=== PATIENT | male | born 1955 | race African-American/Black ===

== ENCOUNTER 2021-04-29 04:45 | Inpatient (IN) | payer MEDICARE ==
[~2021-04-29] VITALS: Ht 172.7 cm; Wt 105.0 kg
[~2021-04-29 04:45] MED LIST: ALBU8HFA INH; ATOR40TA59 PO; GABA600T7 PO; HYDR-2145 PO; INSU100C4 SQ; INSU100I13 SQ; LOSA-73 PO; MULT-245 PO
[2021-04-29] MEDS ORDERED: PROPOFOL 100 ML IV ONE ×2 (04:51→08:30)
[2021-04-29] MEDS ORDERED: FUROSEMIDE 40 MG/4 ML VIAL. ONE (04:53)
[2021-04-29] MEDS ORDERED: NITROGLYCERIN SUBLINGUAL 0.4 MG BOTTLE OF 25. SL ONE (04:57)
[2021-04-29] MEDS ORDERED: niCARdipine 50 MG in IV NORMAL SALINE 250ML 250 ML IV PRN (05:00)
--- NOTE | 2021-04-29 05:12 | EKG ---
[facility] [address] [place] [address] Test Date: 2021-04-29 Test Time: 04:54:01 Pat Name: BIA ORTIZ Department: Room: Gender: M Doctor Of Naturopathic Medicine: : 1955 Requested By: DIANA VILLASENOR Order Number: [id number] Reading MD: Geovanni Olivas Measurements Intervals Schneider Rate: 89 P: 50 [place]: 154 QRS: 52 QRSD: 94 T: 64 QT: 378 QTc: 461 Interpretive Statements SINUS RHYTHM NORMAL ECG RI6.01 Compared to ECG 02/03/2021 23:33:04 No significant changes Electronically Signed On 04-30-2021 13:12:57 CDT by Geovanni Olivas
[2021-04-29 05:13] LABS: BASO % 1 % (0-3); EOS # 0.2 x10^3/uL (0.0-0.7); EOS % 3 % (0-3); HEMATOCRIT 41.7 % (39.0-53.0); HEMOGLOBIN 13.7 g/dL (13.0-17.5); LYMPH # 1.8 x10^3/uL (1.0-4.8); LYMPH % 24 % (24-48); MEAN CORPUSCULAR HEMOGLOBIN 30 pg (25-35); MEAN CORPUSCULAR HGB CONC 33 g/dL (31-37); MEAN CORPUSCULAR VOLUME 90 fL (79-100); MONO % 13 % (0-9); NEUT # 4.6 x10^3/uL (1.8-7.7); NEUT % 60 % (31-73); PLATELET COUNT 353 x10^3/uL (140-400); RED BLOOD COUNT 4.63 x10^6/uL (4.30-5.70); RED CELL DISTRIBUTION WIDTH 13.7 % (11.5-14.5); WHITE BLOOD COUNT 7.6 x10^3/uL (4.0-11.0)
[2021-04-29] MEDS ORDERED: NITROGLYCERIN SUBLINGUAL 0.4 MG BOTTLE OF 25. SL PRN (05:15)
[2021-04-29] MEDS: MIDAZOLAM 100mg/100ml NS BAG 100 ML IV PRN ×2 (05:17→23:16)
[2021-04-29 05:26] LABS: CALCIUM 8.4 mg/dL (8.5-10.1); CREATININE 1.4 mg/dL (0.7-1.3); GFR 61.5
[2021-04-29] MEDS ORDERED: FUROSEMIDE 40 MG/4 ML VIAL. IVP ONE ×3 (05:30→13:00)
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
[2021-04-29 05:40] LABS: ALBUMIN 2.9 g/dL (3.4-5.0); ALBUMIN/GLOBULIN RATIO 0.7 (1.0-1.7); TOTAL BILIRUBIN 0.2 mg/dL (0.2-1.0)
[2021-04-29] MEDS ORDERED: ONDANSETRON PF 4 MG/2 ML VIAL. IVP PRN (05:45)
[2021-04-29 06:04] LABS: BILIRUBIN,URINE NEGATIVE (NEG); CLARITY,URINE CLEAR; COLOR,URINE YELLOW; NITRITE,URINE NEGATIVE (NEG); PROTEIN,URINE 100 mg/dL (NEG-TRACE)
[2021-04-29 06:12] LABS: BARBITURATES NEG (NEG); BENZODIAZEPINES NEG (NEG); CANNABINOIDS NEG (NEG); COCAINE NEG (NEG); METHADONE NEG (NEG); OPIATES NEG (NEG); PHENCYCLIDINE NEG (NEG)
[2021-04-29 06:13] LABS: AMPHETAMINE/METHAMPHETAMINE NEG (NEG)
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
[2021-04-29] MEDS ORDERED: PROPOFOL 10 MG/ML (20ML) VIAL. IV ONE (06:30)
[2021-04-29] MEDS ORDERED: PROPOFOL 10 MG/ML (20ML) VIAL. IV PRN (06:30)
[2021-04-29 06:34] LABS: HYALINE CASTS, URINE MODERATE /HPF
[2021-04-29 06:35] LABS: BACTERIA,URINE FEW /HPF (0-FEW)
--- NOTE | 2021-04-29 06:43 | RAD ---
Exam: Chest and abdominal radiographs Indication: Reason: tube placement / Spl. Instructions: / History: . Comparison: 02/03/2021 Findings: Chest: The endotracheal tube terminates 4.8 cm above the rl. The gastric tube tip and side port t erminates in the gastric body. The heart is enlarged with pulmonary vascular congestion. There is inc reased interstitial and alveolar airspace opacities slightly more advanced in the right middle/lower lobes. No sizable pleural effusion. No pneumothorax. No acute osseous process. ABDOMEN: There is mild gaseous distention of the stomach with relative positive gas throughout the vi sualized abdomen. No evidence of bowel obstruction. Impression: 1. Endotracheal and gastric tubes in stable position. 2. Pulmonary findings suggestive of moderate to severe interstitial alveolar pulmonary edema. Superim posed infectious process cannot be excluded. Electronically signed by: Dariusz Fry DO (04/29/2021 6:41 AM) [facility]
[2021-04-29] MEDS ORDERED: ALBUTEROL SULFATE 2.5 MG/3 ML NEBU. NEB PRN (06:45)
[2021-04-29] MEDS ORDERED: DEXTROSE 50% 25 GM / 50ML DISP.SYRIN. IV PRN ×2 (06:45→11:00)
[2021-04-29] MEDS ORDERED: SUCCINYLCHOLINE 200 MG/10 ML VIAL. ONE (07:01)
[2021-04-29] MEDS ORDERED: MIDAZOLAM HCL/PF 5 MG/5 ML VIAL. ONE (07:01)
[2021-04-29] MEDS ORDERED: KETAMINE HCL 500 MG/10 ML VIAL. ONE (07:02)
[2021-04-29 07:10] LABS: BASE EXCESS ABG -3 mmol/L (-3-3); HCO3 ABG 27 mmol/L (21-28); PO2 ABG 423 mmHg (65-108); SAT O2 ABG 99 % (92-99)
[2021-04-29 07:12] LABS: PCO2 ABG 76 mmHg (35-46)
[2021-04-29 07:13] LABS: FIO2 ABG 100
[2021-04-29 07:50] LABS: BASE EXCESS COOX 1 mmol/L (-3-3); HCO3 COOX 26 mmol/L (21-28); METHEMOGLOBIN 0.5 % (0.0-1.9); OXYHEMOGLOBIN 95.4 %; PCO2 COOX 44 mmHg (35-46); PO2 COOX 86 mmHg (65-108); SAT O2 COOX 96 % (92-99)
[2021-04-29] MEDS ORDERED: INSULIN LISPRO 300 UNITS/3 ML VIAL. SQ SCH ×2 (08:00)
[2021-04-29] MEDS: LOSARTAN POTASSIUM 25 MG TABLET. PO SCH (09:00)
--- NOTE | 2021-04-29 10:49 | PDOC2 ---
COOPER MILLARD PRINCIPAL INVESTIGATOR 04/29/21 1049: CARDIAC CONSULT DATE OF CONSULT Date of Consult DATE: 04/29/21 TIME: 10:41 REASON FOR CONSULT Reason for Consult: CHF Exacerbation REFERRING PHYSICIAN Referring Physician: Dr. Carvalho SOURCE Source: Chart review HISTORY OF PRESENT ILLNESS HISTORY OF PRESENT ILLNESS This is a 66 yo male who presented from [facility] secondary to shortness of breath. Required intubation upon arrival to the ED secondary to respiratory distress. CXR noted with pulmonary edema, which prompted this consult. Also noted with hypertensive emergency with systolic blood pressure > 220. Blood pressure presently controlled. PAST MEDICAL HISTORY Cardiovascular: CHF, HTN, Hyperlipidemia Psych: Addictions Endocrine: Diabetes PAST SURGICAL HISTORY Past Surgical History: Other (unknown ) FAMILY HISTORY Family History: Family History Unknown SOCIAL HISTORY Drugs: Cocaine (h/o use. recently discharged from rehab) Lives: Homeless (fdc ) CURRENT MEDICATIONS CURRENT MEDICATIONS Current Medications Medications (Trade) Dose Ordered Sig/Rhys Route PRN Reason Start Time Stop Time Status Last Admin Dose Admin Midazolam HCl 100 ml @ 1 mls/hr CONT PRN IV SEE I/O RECORD 04/29/21 05:00 04/29/21 05:17 Furosemide (Lasix) 40 mg 1X ONCE IVP 04/29/21 05:30 04/29/21 05:31 DC 04/29/21 04:56 Nitroglycerin (Nitrostat) 0.4 mg PRN Q5MIN PRN SL CHEST PAIN 04/29/21 05:15 04/29/21 04:58 Propofol (Diprivan) 100 mg CONT PRN PRN IV SEDATION 04/29/21 06:30 04/29/21 05:15 Fentanyl Citrate 30 ml @ 0 mls/hr CONT PRN PRN IV SEDATION/PAIN 04/29/21 06:30 04/29/21 06:45 ALLERGIES ALLERGIES: Coded Allergies: No Known Drug Allergies (Unverified , 02/04/21) ROS Review of System unobtainable PHYSICAL EXAM General: Other (sedated) HEENT: Atraumatic, Mucous membr. moist/pink Lungs: Other (diminished, MV) Heart: Regular rate Abdomen: Other (obese) Extremities: Other (trace bilateral LE edema ) Skin: No significant lesion Neuro: Other (sedated) Psych/Mental Status: Other (unable to assess) MUSCULOSKELETAL: Osteoarthritic changes both hands VITALS/I&O VITALS/I&O: Vital Signs Date Time Temp Pulse Resp B/P (MAP) Pulse Ox O2 Delivery O2 Flow Rate FiO2 04/29/21 10:00 64 26 129/65 (86) 100 Ventilator 04/29/21 04:45 96.6 96.6 LABS Lab: Laboratory Tests Test 04/29/21 04:58 04/29/21 05:05 04/29/21 05:26 04/29/21 05:50 White Blood Count 7.6 x10^3/uL (4.0-11.0) Red Blood Count 4.63 x10^6/uL (4.30-5.70) Hemoglobin 13.7 g/dL (13.0-17.5) Hematocrit 41.7 % (39.0-53.0) Mean Corpuscular Volume 90 fL (79-100) Mean Corpuscular Hemoglobin 30 pg (25-35) Mean Corpuscular Hemoglobin Concent 33 g/dL (31-37) Red Cell Distribution Width 13.7 % (11.5-14.5) Platelet Count 353 x10^3/uL (140-400) Neutrophils (%) (Auto) 60 % (31-73) Lymphocytes (%) (Auto) 24 % (24-48) Monocytes (%) (Auto) 13 % (0-9) H Eosinophils (%) (Auto) 3 % (0-3) Basophils (%) (Auto) 1 % (0-3) Neutrophils # (Auto) 4.6 x10^3/uL (1.8-7.7) Lymphocytes # (Auto) 1.8 x10^3/uL (1.0-4.8) Monocytes # (Auto) 1.0 x10^3/uL (0.0-1.1) Eosinophils # (Auto) 0.2 x10^3/uL (0.0-0.7) Basophils # (Auto) 0.0 x10^3/uL (0.0-0.2) Sodium Level 140 mmol/L (136-145) Potassium Level 5.0 mmol/L (3.5-5.1) Chloride Level 105 mmol/L (98-107) Carbon Dioxide Level 30 mmol/L (21-32) Anion Gap 5 (6-14) L Blood Urea Nitrogen 22 mg/dL (8-26) Creatinine 1.4 mg/dL (0.7-1.3) H Estimated GFR (Cockcroft-Gault) 61.5 BUN/Creatinine Ratio 16 (6-20) Glucose Level 333 mg/dL (70-99) H Lactic Acid Level 1.6 mmol/L (0.4-2.0) Calcium Level 8.4 mg/dL (8.5-10.1) L Total Bilirubin 0.2 mg/dL (0.2-1.0) Aspartate Amino Transferase (AST) 184 U/L (15-37) H Alanine Aminotransferase (ALT) 185 U/L (16-63) H Alkaline Phosphatase 153 U/L (46-116) H Troponin I Quantitative < 0.017 ng/mL (0.000-0.055) FV-Oww-X-Type Natriuretic Peptide 1590 pg/mL (0-124) H Total Protein 7.0 g/dL (6.4-8.2) Albumin 2.9 g/dL (3.4-5.0) L Albumin/Globulin Ratio 0.7 (1.0-1.7) L O2 Saturation 96 % (92-99) Arterial Blood pH 7.39 (7.35-7.45) Arterial Blood pCO2 at Patient Temp 44 mmHg (35-46) Arterial Blood pO2 at Patient Temp 86 mmHg (65-108) Arterial Blood HCO3 26 mmol/L (21-28) Arterial Blood Base Excess 1 mmol/L (-3-3) Oxyhemoglobin 95.4 % Methemoglobin 0.5 % (0.0-1.9) Carbon Monoxide, Quantitative 0.3 % (0.0-1.9) FiO2 40/vent SARS-CoV-2 Antigen (Rapid) Negative (NEGATIVE) Urine Collection Type U cath Urine Color Yellow Urine Clarity Clear Urine pH 6.0 (<5.0-8.0) Urine Specific [place] 1.015 (1.000-1.030) Urine Protein 100 mg/dL (NEG-TRACE) Urine Glucose (UA) 250 mg/dL (NEG) Urine Ketones (Stick) Negative mg/dL (NEG) Urine Blood Trace (NEG) Urine Nitrite Negative (NEG) Urine Bilirubin Negative (NEG) Urine Urobilinogen Dipstick 1.0 mg/dL (0.2 mg/dL) Urine Leukocyte Esterase Negative (NEG) Urine RBC 1-2 /HPF (0-2) Urine WBC 1-4 /HPF (0-4) Urine Squamous Epithelial Cells Few /LPF Urine Transitional Epithelial Cells Occ /LPF Urine Bacteria Few /HPF (0-FEW) Urine Hyaline Casts Moderate /HPF Urine Opiates Screen Neg (NEG) Urine Methadone Screen Neg (NEG) Urine Barbiturates Neg (NEG) Urine Phencyclidine Screen Neg (NEG) Urine Amphetamine/Methamphetamine Neg (NEG) Urine Benzodiazepines Screen Neg (NEG) Urine Cocaine Screen Neg (NEG) Urine Cannabinoids Screen Neg (NEG) Urine Ethyl Alcohol Neg (NEG) Test 04/29/21 06:18 04/29/21 08:40 04/29/21 10:26 O2 Saturation 99 % (92-99) Arterial Blood pH 7.17 (7.35-7.45) *L Arterial Blood pCO2 at Patient Temp 76 mmHg (35-46) *H Arterial Blood pO2 at Patient Temp 423 mmHg (65-108) H Arterial Blood HCO3 27 mmol/L (21-28) Arterial Blood Base Excess -3 mmol/L (-3-3) FiO2 100 Troponin I Quantitative < 0.017 ng/mL (0.000-0.055) Glucose (Fingerstick) 257 mg/dL (70-99) H Laboratory Tests 04/29/21 04:58 Laboratory Tests 04/29/21 04:58 ASSESSMENT/PLAN ASSESSMENT/PLAN 1. Acute on chronic respiratory failure; s/p intubation 2. Acute on chronic probable diastolic CHF in setting of hypertensive urgency. s/p IV diuresis 3. Hypertensive urgency; now controlled 4. Hyperlipidemia 5. Diabetes, II 6. MICHAEL 7. Elevated LFTs 8. H/o substance abuse; UDS negative 9. PUI; rapid negative Recommendations Diuresis with monitoring of renal function Echo to assess LV systolic function if PCR negative Ongoing lung optimization Supportive care Consider outpatient ischemic evaluation WELLINGTON ASHRAF MD 04/29/21 8407: CARDIAC CONSULT ASSESSMENT/PLAN ASSESSMENT/PLAN Pt. seen and examined. Agree with above GAS DISPATCHER Note. Supportive care. COOPER MILLARD APRN Apr 29, 2021 10:49 WELLINGTON ASHRAF MD Apr 29, 2021 18:47
[2021-04-29] MEDS: INSULIN LISPRO 300 UNITS/3 ML VIAL. SQ SCH ×2 (11:49→17:00)
[2021-04-29] MEDS: hydroCHLOROthiazide 25 MG TABLET PO SCH ×2 (12:00→16:00)
--- NOTE | 2021-04-29 13:04 | CONS ---
DATE OF CONSULTATION: 04/29/2021 PULMONARY CONSULTATION ATTENDING PHYSICIAN: Bryan Naik MD REASON FOR CONSULTATION: Respiratory failure. HISTORY OF PRESENT ILLNESS: The patient is a 66-year-old male with a BMI of 39.8. The patient has history of CHF and hypertension. He presented from [facility] due to increased shortness of breath. He required intubation for respiratory distress in the Emergency Room. The patient underwent chest x-ray, which was reviewed by me and was consistent with pulmonary edema. The patient was noted to be in hypertensive emergency with systolic blood pressure of more than 220. His current blood pressure is improved. His oxygen requirement is down to 40%. His initial ABG showed a pH of 7.17 with a pCO2 of 76 and a pO2 of 423 post-intubation. His COVID is negative. He received Lasix in the ER. I saw the patient in the Emergency Room. PAST MEDICAL HISTORY: Significant for CHF, unknown EF; hypertension, hyperlipidemia. The patient has addictions and diabetes. PAST SURGICAL HISTORY: Unknown. ALLERGIES: None. MEDICATIONS: Reviewed as listed in the MRAD. REVIEW OF SYSTEMS: Unable to obtain from the patient as he is on the ventilator. PHYSICAL EXAMINATION: VITAL SIGNS: Reviewed. Blood pressure stable, systolic 129. Pulse ox is 100%. NECK: Supple. LUNGS: Clear breath sounds. CARDIOVASCULAR: With a regular rate. ABDOMEN: Soft, obese. EXTREMITIES: With trace pitting edema. LABORATORY DATA: Reviewed. Troponin less than 0.017. Urine drug screen negative. COVID negative. BUN and creatinine of 22 and 1.4. AST, ALT elevated. Normal bilirubin. White cell count 7.6. IMPRESSION: 1. Acute hypercapnic respiratory failure secondary to acute flash pulmonary edema from hypertensive urgency. 2. Hypertensive urgency triggering diastolic congestive heart failure. 3. Abnormal chest x-ray consistent with congestive heart failure. 4. COVID-19 negative. 5. History of addictions, but urine drug screen negative. 6. Abnormal AST and ALT related to hypoperfusion. RECOMMENDATIONS: 1. The patient's blood pressure is stable. Continue to monitor closely. 2. Continue assist control mode. 3. We will follow up ABGs and likely pursue a CPAP trial in the next 24 hours. 4. Diuresis. 5. Follow up chest x-ray. 6. DVT prophylaxis and stress ulcer prophylaxis. 7. Enteral nutrition. 8. Discussed with RN in the ER. We will follow along with you. Chart reviewed, imaging studies reviewed. Critical care time 37 minutes. NISH/JEWELL DR: Sandip TID: [id number]
[2021-04-29 13:20] LABS: BASE EXCESS ABG 4 mmol/L (-3-3); HCO3 ABG 27 mmol/L (21-28); PCO2 ABG 33 mmHg (35-46); PO2 ABG 72 mmHg (65-108); SAT O2 ABG 95 % (92-99)
[2021-04-29 13:22] LABS: FIO2 ABG 40/VENT
--- NOTE | 2021-04-29 17:45 | CARD ---
MR#: [id number] Date of Study: 04/29/2021 Ordering Physician: BRYAN MCCLOUD, Referring Physician: BRYAN MCCLOUD, Tech: APPROVED REPORT EXAM: Two-dimensional and M-mode echocardiogram with Doppler and color Doppler. INDICATION Dyspnea LEFT VENTRICLE The left ventricle is normal size. There is mild concentric left ventricular hypertrophy. The left ve ntricular systolic function is normal and the ejection fraction is within normal range. EF 55% The ba travon to mid inferior wall is hypokinetic. The left ventricular diastolic function and filling is alem l for age. No left ventricle thrombus noted on this study. There is no ventricular septal defect visu alized. There is no left ventricular aneurysm. There is no mass noted in the left ventricle. RIGHT VENTRICLE The right ventricle is normal size. There is normal right ventricular wall thickness. The right ventr icular systolic function is normal. ATRIA The left atrium is mildly dilated. The right atrium size is normal. The interatrial septum is intact with no evidence for an atrial septal defect or patent foramen ovale as noted on 2-D or Doppler imagi ng. AORTIC VALVE The aortic valve is calcified but opens well. Doppler and Color Flow revealed mild to moderate eccent [place] aortic regurgitation. There is no significant aortic valvular stenosis. There is no aortic valvul ar vegetation. MITRAL VALVE The mitral valve is normal in structure and function. There is no evidence of mitral valve prolapse. There is no mitral valve stenosis. Doppler and Color-flow revealed trace to mild mitral regurgitation . TRICUSPID VALVE The tricuspid valve is normal in structure and function. Doppler and Color Flow revealed trace to mil d tricuspid regurgitation. The PA pressure was estimated at 37 mmHg. There is no tricuspid valve prol apse or vegetation. There is no tricuspid valve stenosis. PULMONIC VALVE Doppler and Color Flow revealed no pulmonic valvular regurgitation. There is no pulmonic valvular cyrus nosis. GREAT VESSELS The aortic root is normal in size. The ascending aorta is normal in size. The IVC is midly dilated wi th blunted inspiratory response. PERICARDIAL EFFUSION There is no pleural effusion. There is no evidence of significant pericardial effusion. Critical Notification Critical Value: No <Conclusion> The left ventricular systolic function is normal and the ejection fraction is within normal range. EF 55% The basal to mid inferior wall is hypokinetic. Doppler and Color Flow revealed mild to moderate eccentric aortic regurgitation. Signed by : Braulio Webb, Electronically Approved : 04/29/2021 17:45:19
[2021-04-29] MEDS: PROPOFOL 100 ML IV PRN (20:07)
[2021-04-29] MEDS: ATORVASTATIN CALCIUM 40 MG TABLET. PO SCH (21:00)
[2021-04-29] MEDS: INSULIN GLARGINE SYRINGE. SQ SCH (21:00)
[2021-04-29] MEDS: FAMOTIDINE 20 MG/2 ML VIAL IVP SCH (22:04)
[2021-04-29] MEDS: ENOXAPARIN 40 MG/0.4 ML SYRINGE. SQ SCH (22:05)
[2021-04-30] VITALS (20 sets, daily range): BP systolic 100–171; BP diastolic 50–83
[2021-04-30] MEDS: PROPOFOL 100 ML IV PRN ×2 (00:01→09:41)
[2021-04-30 01:11] LABS: HEMOGLOBIN A1C 10.1 % (4.8-5.6)
--- NOTE | 2021-04-30 06:04 | NUR ---
Nursing Note: Pt to room 109 after ED HOLD. Intubated, sedated on propofol, fentanyl and versed. issa to dd with cloudy urine. History obtained from previous admission.
--- NOTE | 2021-04-30 07:40 | PDOC ---
[employer] PROGRESS NOTE Date of Service DOS: DATE: 04/30/21 TIME: 07:27 Chief Complaint Chief Complaint Acute respiratory failure with hypoxia Acute CHF Flash pulmonary edema Hypertensive emergency MICHAEL due to vasomotor nephropathy Transaminitis DM2 with hyperglycemia Moderate malnutrition COVID-19 PUI Plan: Patient admitted to ICU on Cardene drip Consultation placed to cardiology and pulmonology We will continue to diurese patient with Lasix daily; monitor daily I's & O's. Echocardiogram has been ordered pending COVID-19 status. We will resume what home blood pressure medications we can at this time and wean off Cardene drip as tolerated Basal insulin COVID-19 pending FEN - NPO PPX - Lovenox FULL CODE Dispo - inpatient for above Unable to name surrogate decision-maker at this time History of Present Illness History of Present Illness Patient 66-year-old male past medical history DM2, HTN, presents to the ED from [facility] with complaints of shortness of breath. Much history is obtained through chart review due to clinical condition. Upon arrival by EMS she was saturating 94% on room air. He was diaphoretic and tachypneic, and subsequently placed on BiPAP. Labs on admission showed creatinine 1.4, CBG 333, AST 184, ALT 185, alk phos 153, BNP 1190, albumin 2.9. Blood pressure in the ED noted to be significantly elevated at 242/113 mmHg. He received Lasix and was placed on Cardene drip due to hypertensive emergency. Decision was made in ED to intubate patient due to worsening respiratory failure. Will be admitted to ICU for further medical management. 04/30/2021: Low-grade fever overnight, T-max 100.1 F. On vent with FiO2 40%, PEEP 5. Will follow cardiology recommendations. Continue diuresis with close monitoring of kidney function. 1940 mL urine output overnight. Echocardiogram showed normal left ventricular systolic function with a EF 55%; mild inferior wall hypokinesia, recommended outpatient ischemic evaluation. Blood pressure stable. Ventilator management per pulmonology; likely pursue CPAP trial the nex t 24 hours. Critical care time 30 minutes spent reviewing charts, reviewing imaging, reviewing labs, and discussion with RN. Vitals/I&O Vitals/I&O: Vital Signs Date Time Temp Pulse Resp B/P (MAP) Pulse Ox O2 Delivery O2 Flow Rate FiO2 04/30/21 06:42 96 40.0 04/30/21 06:00 74 20 108/53 (71) Ventilator 04/30/21 05:15 100.1 100.1 I & O 04/29/21 04/29/21 04/30/21 15:00 23:00 07:00 Output Total 665 ml 900 ml 775 ml Balance -665 ml -900 ml -775 ml Physical Exam General: Other (Intubated and sedated) Heart: Regular rate Lungs: Other (Intubated on ventilator) Abdomen: Other (obese) Extremities: No cyanosis, Other (trace bilateral LE edema ) Skin: No significant lesion Labs Labs: Laboratory Tests Test 04/29/21 08:40 04/29/21 10:26 04/29/21 11:15 04/29/21 13:00 Troponin I Quantitative < 0.017 ng/mL (0.000-0.055) < 0.017 ng/mL (0.000-0.055) Glucose (Fingerstick) 257 mg/dL (70-99) O2 Saturation 95 % (92-99) Arterial Blood pH 7.53 (7.35-7.45) Arterial Blood pCO2 at Patient Temp 33 mmHg (35-46) Arterial Blood pO2 at Patient Temp 72 mmHg (65-108) Arterial Blood HCO3 27 mmol/L (21-28) Arterial Blood Base Excess 4 mmol/L (-3-3) FiO2 40/vent Test 04/29/21 18:51 04/29/21 19:33 04/30/21 01:07 Glucose (Fingerstick) 149 mg/dL (70-99) 143 mg/dL (70-99) 129 mg/dL (70-99) Assessment and Plan Assessmemt and Plan Problems Medical Problems: (1) Flash pulmonary edema Status: Acute (2) Hypertensive emergency Status: Acute (3) Respiratory failure Status: Acute Comment Review of Relevant I have reviewed the following items fabricio (where applicable) has been applied. Medications: Current Medications Medications (Trade) Dose Ordered Sig/Rhys Route PRN Reason Start Time Stop Time Status Last Admin Dose Admin Insulin Human Lispro (HumaLOG) 0-7 UNITS TIDWMEALS SQ 04/29/21 12:00 04/29/21 11:49 Furosemide (Lasix) 40 mg 1X ONCE IVP 04/29/21 12:45 04/29/21 12:46 DC 04/29/21 12:48 Enoxaparin Sodium (Lovenox 40mg Syringe) 40 mg Q24H SQ 04/29/21 13:00 04/29/21 22:05 Furosemide (Lasix) 40 mg 1X ONCE IVP 04/29/21 13:00 04/29/21 13:01 DC 04/29/21 13:06 Propofol 100 ml @ 3.66 mls/hr CONT PRN IV PER PROTOCOL 04/29/21 18:45 04/30/21 00:01 Famotidine (Pepcid Vial) 20 mg QHS IVP 04/29/21 21:00 04/29/21 22:04 Justifications for Admission Other Justification BRYAN MCCLOUD MD Apr 30, 2021 07:40
[2021-04-30 08:15] LABS: BASE EXCESS ABG 1 mmol/L (-3-3); HCO3 ABG 25 mmol/L (21-28); PCO2 ABG 39 mmHg (35-46); PO2 ABG 77 mmHg (65-108); SAT O2 ABG 95 % (92-99)
[2021-04-30 08:28] LABS: BASO # 0.1 x10^3/uL (0.0-0.2); BASO % 1 % (0-3); EOS % 0 % (0-3); HEMATOCRIT 36.1 % (39.0-53.0); HEMOGLOBIN 11.8 g/dL (13.0-17.5); LYMPH # 1.1 x10^3/uL (1.0-4.8); LYMPH % 11 % (24-48); MEAN CORPUSCULAR HEMOGLOBIN 30 pg (25-35); MEAN CORPUSCULAR HGB CONC 33 g/dL (31-37); MEAN CORPUSCULAR VOLUME 90 fL (79-100); MONO # 1.2 x10^3/uL (0.0-1.1); MONO % 12 % (0-9); NEUT # 7.5 x10^3/uL (1.8-7.7); NEUT % 76 % (31-73); PLATELET COUNT 303 x10^3/uL (140-400); RED BLOOD COUNT 3.99 x10^6/uL (4.30-5.70); RED CELL DISTRIBUTION WIDTH 13.8 % (11.5-14.5); WHITE BLOOD COUNT 9.9 x10^3/uL (4.0-11.0)
--- NOTE | 2021-04-30 08:35 | RAD ---
EXAM: Chest, single view. HISTORY: Congestive heart failure. COMPARISON: 04/29/2021 FINDINGS: A frontal view of the chest is obtained. There has been interval increase in right lower lo be infiltrate and a small right pleural effusion. There has been interval decrease in interstitial in filtrate elsewhere throughout both lungs. There is a stable enlarged cardiac silhouette. There is an endotracheal tube within the mid trachea. There is a nasogastric tube within the stomach. IMPRESSION: 1. Increased right lower lobe infiltrate with small right pleural effusion. 2. Decreased infiltrate elsewhere within both lungs. 3. Stable cardiomegaly and support lines and tubes. Electronically signed by: Maya Fernandez MD (04/30/2021 8:33 AM) [id number]
[2021-04-30 08:56] LABS: CALCIUM 8.4 mg/dL (8.5-10.1); CREATININE 1.5 mg/dL (0.7-1.3); GFR 56.8; POTASSIUM 4.5 mmol/L (3.5-5.1)
[2021-04-30] MEDS ORDERED: FUROSEMIDE 20 MG/2 ML VIAL. IVP SCH (09:00)
[2021-04-30 09:02] LABS: FIO2 ABG 40%VENT
[2021-04-30] MEDS: FUROSEMIDE 40 MG/4 ML VIAL. IVP SCH (10:02)
[2021-04-30] MEDS: hydroCHLOROthiazide 25 MG TABLET PO SCH ×2 (10:03→16:00)
[2021-04-30] MEDS: LOSARTAN POTASSIUM 25 MG TABLET. PO SCH (10:07)
--- NOTE | 2021-04-30 11:00 | PDOC ---
PULMONARY PROGRESS NOTES DATE: 04/30/21 TIME: 10:58 Subjective Patient intubated and sedated. 40% FiO2 on assist control mode Vitals Vital Signs Date Time Temp Pulse Resp B/P (MAP) Pulse Ox O2 Delivery O2 Flow Rate FiO2 04/30/21 10:07 70 118/49 04/30/21 08:00 Mechanical Ventilator 04/30/21 07:58 100 04/30/21 07:15 20 04/30/21 06:42 40.0 04/30/21 05:15 100.1 100.1 Lungs: Clear Cardiovascular: S1 Abdomen: Soft Extremities: Other (1+ edema) Labs Laboratory Tests Test 04/29/21 04:58 04/29/21 05:05 04/29/21 05:26 04/29/21 05:50 White Blood Count 7.6 x10^3/uL (4.0-11.0) Red Blood Count 4.63 x10^6/uL (4.30-5.70) Hemoglobin 13.7 g/dL (13.0-17.5) Hematocrit 41.7 % (39.0-53.0) Mean Corpuscular Volume 90 fL (79-100) Mean Corpuscular Hemoglobin 30 pg (25-35) Mean Corpuscular Hemoglobin Concent 33 g/dL (31-37) Red Cell Distribution Width 13.7 % (11.5-14.5) Platelet Count 353 x10^3/uL (140-400) Neutrophils (%) (Auto) 60 % (31-73) Lymphocytes (%) (Auto) 24 % (24-48) Monocytes (%) (Auto) 13 % (0-9) Eosinophils (%) (Auto) 3 % (0-3) Basophils (%) (Auto) 1 % (0-3) Neutrophils # (Auto) 4.6 x10^3/uL (1.8-7.7) Lymphocytes # (Auto) 1.8 x10^3/uL (1.0-4.8) Monocytes # (Auto) 1.0 x10^3/uL (0.0-1.1) Eosinophils # (Auto) 0.2 x10^3/uL (0.0-0.7) Basophils # (Auto) 0.0 x10^3/uL (0.0-0.2) Sodium Level 140 mmol/L (136-145) Potassium Level 5.0 mmol/L (3.5-5.1) Chloride Level 105 mmol/L (98-107) Carbon Dioxide Level 30 mmol/L (21-32) Anion Gap 5 (6-14) Blood Urea Nitrogen 22 mg/dL (8-26) Creatinine 1.4 mg/dL (0.7-1.3) Estimated GFR (Cockcroft-Gault) 61.5 BUN/Creatinine Ratio 16 (6-20) Glucose Level 333 mg/dL (70-99) Hemoglobin A1c 10.1 % (4.8-5.6) Lactic Acid Level 1.6 mmol/L (0.4-2.0) Calcium Level 8.4 mg/dL (8.5-10.1) Total Bilirubin 0.2 mg/dL (0.2-1.0) Aspartate Amino Transf (AST/SGOT) 184 U/L (15-37) Alanine Aminotransferase (ALT/SGPT) 185 U/L (16-63) Alkaline Phosphatase 153 U/L (46-116) Troponin I Quantitative < 0.017 ng/mL (0.000-0.055) QX-Iol-Z-Type Natriuretic Peptide 1590 pg/mL (0-124) Total Protein 7.0 g/dL (6.4-8.2) Albumin 2.9 g/dL (3.4-5.0) Albumin/Globulin Ratio 0.7 (1.0-1.7) O2 Saturation 96 % (92-99) Arterial Blood pH 7.39 (7.35-7.45) Arterial Blood pCO2 at Patient Temp 44 mmHg (35-46) Arterial Blood pO2 at Patient Temp 86 mmHg (65-108) Arterial Blood HCO3 26 mmol/L (21-28) Arterial Blood Base Excess 1 mmol/L (-3-3) Oxyhemoglobin 95.4 % Methemoglobin 0.5 % (0.0-1.9) Carbon Monoxide, Quantitative 0.3 % (0.0-1.9) FiO2 40/vent SARS-CoV-2 RNA (EVANS) Negative (Negative) SARS-CoV-2 Antigen (Rapid) Negative (NEGATIVE) Urine Collection Type U cath Urine Color Yellow Urine Clarity Clear Urine pH 6.0 (<5.0-8.0) Urine Specific [place] 1.015 (1.000-1.030) Urine Protein 100 mg/dL (NEG-TRACE) Urine Glucose (UA) 250 mg/dL (NEG) Urine Ketones (Stick) Negative mg/dL (NEG) Urine Blood Trace (NEG) Urine Nitrite Negative (NEG) Urine Bilirubin Negative (NEG) Urine Urobilinogen Dipstick 1.0 mg/dL (0.2 mg/dL) Urine Leukocyte Esterase Negative (NEG) Urine RBC 1-2 /HPF (0-2) Urine WBC 1-4 /HPF (0-4) Urine Squamous Epithelial Cells Few /LPF Urine Transitional Epithelial Cells Occ /LPF Urine Bacteria Few /HPF (0-FEW) Urine Hyaline Casts Moderate /HPF Urine Opiates Screen Neg (NEG) Urine Methadone Screen Neg (NEG) Urine Barbiturates Neg (NEG) Urine Phencyclidine Screen Neg (NEG) Urine Amphetamine/Methamphetamine Neg (NEG) Urine Benzodiazepines Screen Neg (NEG) Urine Cocaine Screen Neg (NEG) Urine Cannabinoids Screen Neg (NEG) Urine Ethyl Alcohol Neg (NEG) Test 04/29/21 06:18 04/29/21 08:40 04/29/21 10:26 04/29/21 11:15 O2 Saturation 99 % (92-99) Arterial Blood pH 7.17 (7.35-7.45) Arterial Blood pCO2 at Patient Temp 76 mmHg (35-46) Arterial Blood pO2 at Patient Temp 423 mmHg (65-108) Arterial Blood HCO3 27 mmol/L (21-28) Arterial Blood Base Excess -3 mmol/L (-3-3) FiO2 100 Troponin I Quantitative < 0.017 ng/mL (0.000-0.055) < 0.017 ng/mL (0.000-0.055) Glucose (Fingerstick) 257 mg/dL (70-99) Test 04/29/21 13:00 04/29/21 18:51 04/29/21 19:33 04/30/21 01:07 O2 Saturation 95 % (92-99) Arterial Blood pH 7.53 (7.35-7.45) Arterial Blood pCO2 at Patient Temp 33 mmHg (35-46) Arterial Blood pO2 at Patient Temp 72 mmHg (65-108) Arterial Blood HCO3 27 mmol/L (21-28) Arterial Blood Base Excess 4 mmol/L (-3-3) FiO2 40/vent Glucose (Fingerstick) 149 mg/dL (70-99) 143 mg/dL (70-99) 129 mg/dL (70-99) Test 04/30/21 08:15 04/30/21 08:45 White Blood Count 9.9 x10^3/uL (4.0-11.0) Red Blood Count 3.99 x10^6/uL (4.30-5.70) Hemoglobin 11.8 g/dL (13.0-17.5) Hematocrit 36.1 % (39.0-53.0) Mean Corpuscular Volume 90 fL (79-100) Mean Corpuscular Hemoglobin 30 pg (25-35) Mean Corpuscular Hemoglobin Concent 33 g/dL (31-37) Red Cell Distribution Width 13.8 % (11.5-14.5) Platelet Count 303 x10^3/uL (140-400) Neutrophils (%) (Auto) 76 % (31-73) Lymphocytes (%) (Auto) 11 % (24-48) Monocytes (%) (Auto) 12 % (0-9) Eosinophils (%) (Auto) 0 % (0-3) Basophils (%) (Auto) 1 % (0-3) Neutrophils # (Auto) 7.5 x10^3/uL (1.8-7.7) Lymphocytes # (Auto) 1.1 x10^3/uL (1.0-4.8) Monocytes # (Auto) 1.2 x10^3/uL (0.0-1.1) Eosinophils # (Auto) 0.0 x10^3/uL (0.0-0.7) Basophils # (Auto) 0.1 x10^3/uL (0.0-0.2) Sodium Level 142 mmol/L (136-145) Potassium Level 4.5 mmol/L (3.5-5.1) Chloride Level 107 mmol/L (98-107) Carbon Dioxide Level 30 mmol/L (21-32) Anion Gap 5 (6-14) Blood Urea Nitrogen 29 mg/dL (8-26) Creatinine 1.5 mg/dL (0.7-1.3) Estimated GFR (Cockcroft-Gault) 56.8 Glucose Level 235 mg/dL (70-99) Calcium Level 8.4 mg/dL (8.5-10.1) O2 Saturation 95 % (92-99) Arterial Blood pH 7.42 (7.35-7.45) Arterial Blood pCO2 at Patient Temp 39 mmHg (35-46) Arterial Blood pO2 at Patient Temp 77 mmHg (65-108) Arterial Blood HCO3 25 mmol/L (21-28) Arterial Blood Base Excess 1 mmol/L (-3-3) FiO2 40%vent Laboratory Tests Test 04/29/21 11:15 04/29/21 13:00 04/29/21 18:51 04/29/21 19:33 Troponin I Quantitative < 0.017 ng/mL (0.000-0.055) O2 Saturation 95 % (92-99) Arterial Blood pH 7.53 (7.35-7.45) Arterial Blood pCO2 at Patient Temp 33 mmHg (35-46) Arterial Blood pO2 at Patient Temp 72 mmHg (65-108) Arterial Blood HCO3 27 mmol/L (21-28) Arterial Blood Base Excess 4 mmol/L (-3-3) FiO2 40/vent Glucose (Fingerstick) 149 mg/dL (70-99) 143 mg/dL (70-99) Test 04/30/21 01:07 04/30/21 08:15 04/30/21 08:45 Glucose (Fingerstick) 129 mg/dL (70-99) White Blood Count 9.9 x10^3/uL (4.0-11.0) Red Blood Count 3.99 x10^6/uL (4.30-5.70) Hemoglobin 11.8 g/dL (13.0-17.5) Hematocrit 36.1 % (39.0-53.0) Mean Corpuscular Volume 90 fL (79-100) Mean Corpuscular Hemoglobin 30 pg (25-35) Mean Corpuscular Hemoglobin Concent 33 g/dL (31-37) Red Cell Distribution Width 13.8 % (11.5-14.5) Platelet Count 303 x10^3/uL (140-400) Neutrophils (%) (Auto) 76 % (31-73) Lymphocytes (%) (Auto) 11 % (24-48) Monocytes (%) (Auto) 12 % (0-9) Eosinophils (%) (Auto) 0 % (0-3) Basophils (%) (Auto) 1 % (0-3) Neutrophils # (Auto) 7.5 x10^3/uL (1.8-7.7) Lymphocytes # (Auto) 1.1 x10^3/uL (1.0-4.8) Monocytes # (Auto) 1.2 x10^3/uL (0.0-1.1) Eosinophils # (Auto) 0.0 x10^3/uL (0.0-0.7) Basophils # (Auto) 0.1 x10^3/uL (0.0-0.2) Sodium Level 142 mmol/L (136-145) Potassium Level 4.5 mmol/L (3.5-5.1) Chloride Level 107 mmol/L (98-107) Carbon Dioxide Level 30 mmol/L (21-32) Anion Gap 5 (6-14) Blood Urea Nitrogen 29 mg/dL (8-26) Creatinine 1.5 mg/dL (0.7-1.3) Estimated GFR (Cockcroft-Gault) 56.8 Glucose Level 235 mg/dL (70-99) Calcium Level 8.4 mg/dL (8.5-10.1) O2 Saturation 95 % (92-99) Arterial Blood pH 7.42 (7.35-7.45) Arterial Blood pCO2 at Patient Temp 39 mmHg (35-46) Arterial Blood pO2 at Patient Temp 77 mmHg (65-108) Arterial Blood HCO3 25 mmol/L (21-28) Arterial Blood Base Excess 1 mmol/L (-3-3) FiO2 40%vent Medications Active Scripts Medications Dose Route/Sig Max Daily Dose Days Date Category Ventolin Hfa (Albuterol Sulfate) 8 Gm Hfa.aer.ad 1 Puff INH PRN Q4HRS PRN 30 02/04/21 Rx Multi Vitamin Daily (Multivitamin) 1 Each Tablet 1 Tab PO DAILY 30 02/04/21 Reported Gabapentin 600 Mg Tablet 300 Mg PO DAILY 02/04/21 Reported Lantus Solostar (Insulin Glargine,Hum.rec.anlog) 100 Unit/1 Ml Insuln.pen 40 Unit SQ QHS 02/04/21 Reported Novolog (Insulin Aspart) 100 Unit/1 Ml Cartridge 15 Unit SQ TIDAC 02/04/21 Reported Atorvastatin Calcium 40 Mg Tablet 80 Mg PO HS 02/04/21 Reported Losartan Potassium 50 Mg Tablet 25 Mg PO DAILY 02/04/21 Reported Hydrochlorothiazide Tablet (Hydrochlorothiazide) 25 Mg Tablet 12.5 Mg PO BID 02/04/21 Reported Comments Chest x-ray 04/30/2021 Mild improvement in CHF Impression . 1. Acute hypercapnic respiratory failure secondary to acute flash pulmonary edema from hypertensive urgency. 2. Hypertensive urgency triggering diastolic congestive heart failure. 3. Abnormal chest x-ray consistent with congestive heart failure. 4. COVID-19 negative. 5. History of addictions, but urine drug screen negative. 6. Abnormal AST and ALT related to hypoperfusion. Plan . 1. Oxygen status has improved. We will wean off sedation. 2. Continue assist control mode. Once awake, CPAP trial 3. Follow chest x-ray and ABGs as needed. 4. Diuresis. 5. Follow up chest x-ray. 6. DVT prophylaxis and stress ulcer prophylaxis. 7. Enteral nutrition. 8. Discussed with RN/RT MICHELLE DURAN MD Apr 30, 2021 11:00
--- NOTE | 2021-04-30 11:18 | PDOC ---
COOPER MILLARD MEDIA ASSOCIATE 04/30/21 1118: CARDIO Progress Notes Date and Time Date of Service 04/30/21 Time of Evaluation 1115 Subjective Subjective: Other (drowsy, s/p extubation ) Vitals Vitals Vital Signs Date Time Temp Pulse Resp B/P (MAP) Pulse Ox O2 Delivery O2 Flow Rate FiO2 04/30/21 11:00 76 26 170/66 (100) 100 Ventilator 04/30/21 08:00 98.3 98.3 04/30/21 06:42 40.0 Weight Weight [ ] Input and Output Intake and Output Intake and Output 04/30/21 07:00 Output Total 2340 ml Balance -2340 ml Output Urine Total 1940 ml Gastric Drainage Total 400 ml Laboratory Labs Laboratory Tests Test 04/29/21 13:00 04/29/21 18:51 04/29/21 19:33 04/30/21 01:07 O2 Saturation 95 % (92-99) Arterial Blood pH 7.53 (7.35-7.45) Arterial Blood pCO2 at Patient Temp 33 mmHg (35-46) Arterial Blood pO2 at Patient Temp 72 mmHg (65-108) Arterial Blood HCO3 27 mmol/L (21-28) Arterial Blood Base Excess 4 mmol/L (-3-3) FiO2 40/vent Glucose (Fingerstick) 149 mg/dL (70-99) 143 mg/dL (70-99) 129 mg/dL (70-99) Test 04/30/21 08:15 04/30/21 08:45 White Blood Count 9.9 x10^3/uL (4.0-11.0) Red Blood Count 3.99 x10^6/uL (4.30-5.70) Hemoglobin 11.8 g/dL (13.0-17.5) Hematocrit 36.1 % (39.0-53.0) Mean Corpuscular Volume 90 fL (79-100) Mean Corpuscular Hemoglobin 30 pg (25-35) Mean Corpuscular Hemoglobin Concent 33 g/dL (31-37) Red Cell Distribution Width 13.8 % (11.5-14.5) Platelet Count 303 x10^3/uL (140-400) Neutrophils (%) (Auto) 76 % (31-73) Lymphocytes (%) (Auto) 11 % (24-48) Monocytes (%) (Auto) 12 % (0-9) Eosinophils (%) (Auto) 0 % (0-3) Basophils (%) (Auto) 1 % (0-3) Neutrophils # (Auto) 7.5 x10^3/uL (1.8-7.7) Lymphocytes # (Auto) 1.1 x10^3/uL (1.0-4.8) Monocytes # (Auto) 1.2 x10^3/uL (0.0-1.1) Eosinophils # (Auto) 0.0 x10^3/uL (0.0-0.7) Basophils # (Auto) 0.1 x10^3/uL (0.0-0.2) Sodium Level 142 mmol/L (136-145) Potassium Level 4.5 mmol/L (3.5-5.1) Chloride Level 107 mmol/L (98-107) Carbon Dioxide Level 30 mmol/L (21-32) Anion Gap 5 (6-14) Blood Urea Nitrogen 29 mg/dL (8-26) Creatinine 1.5 mg/dL (0.7-1.3) Estimated GFR (Cockcroft-Gault) 56.8 Glucose Level 235 mg/dL (70-99) Calcium Level 8.4 mg/dL (8.5-10.1) O2 Saturation 95 % (92-99) Arterial Blood pH 7.42 (7.35-7.45) Arterial Blood pCO2 at Patient Temp 39 mmHg (35-46) Arterial Blood pO2 at Patient Temp 77 mmHg (65-108) Arterial Blood HCO3 25 mmol/L (21-28) Arterial Blood Base Excess 1 mmol/L (-3-3) FiO2 40%vent Physical Exam HEENT: Neck Supple W Full Motion Chest: Symmetric LUNGS: Other (diminished bases) Heart: RRR Abdomen: Soft N/T Extremities: Other (1+ bilateral LE edema ) Neurology: alert, other (drowsy) Assessment Assessment 1. Acute on chronic respiratory failure; s/p extubation this am 2. Acute on chronic diastolic CHF in setting of hypertensive urgency. s/p IV diuresis. Echo with preserved LV systolic function 3. Hypertensive urgency; now controlled 4. Hyperlipidemia; statin 5. Diabetes, II 6. MICHAEL, ? CKD 7. Elevated LFTs 8. H/o substance abuse; UDS negative 9. PUI; COVID negative Recommendations Diuresis with monitoring of renal function BP control; hydralazine IV PRN while NPO Ongoing lung optimization Supportive care Outpatient ischemic evaluation Supportive care Justicifation of Admission Dx: Justifications for Admission: Justification of Admission Dx: Yes CHF: Hemodynamic Instability WELLINGTON ASHRAF MD 05/01/21 1041: CARDIO Progress Notes Plan Plan Late entry for 04/30/21 Pt. seen and examined. Agree with above [employer] note. COOPER MILLARD APRN Apr 30, 2021 11:18 WELLINGTON ASHRAF MD May 01, 2021 10:41
--- NOTE | 2021-04-30 11:23 | NUR ---
SS following for discharge planning. SS reviewed pt chart and discussed with pt RN. Pt is from [facility], . COVID19 negative. Pt is currently on the vent at 40%. Pt on IV Lasix. No sedation. SS will continue to follow for discharge planning.
[2021-04-30 12:11] LABS: ALBUMIN 2.5 g/dL (3.4-5.0); DIRECT BILIRUBIN 0.1 mg/dL (0.0-0.2); TOTAL BILIRUBIN 0.2 mg/dL (0.2-1.0); TOTAL PROTEIN 5.9 g/dL (6.4-8.2)
--- NOTE | 2021-04-30 12:41 | NUR ---
Verbal order to extubate received from Dr. Berkowitz at 1225 after SBT. Patient extubated at 1235 to 3L NC.
[2021-04-30 12:47] LABS: BASE EXCESS ABG 5 mmol/L (-3-3); FIO2 ABG VENT/CPAP 10-5 40%; HCO3 ABG 30 mmol/L (21-28); PCO2 ABG 45 mmHg (35-46); PO2 ABG 73 mmHg (65-108); SAT O2 ABG 95 % (92-99)
[2021-04-30] MEDS: INSULIN LISPRO 300 UNITS/3 ML VIAL. SQ SCH ×2 (13:18→18:33)
[2021-04-30] MEDS: ENOXAPARIN 40 MG/0.4 ML SYRINGE. SQ SCH (13:22)
[2021-04-30] MEDS ORDERED: FUROSEMIDE 40 MG/4 ML VIAL. IVP ONE (16:45)
[2021-04-30] MEDS ORDERED: hydrALAZINE 20 MG/ML VIAL. IVP PRN (16:45)
[2021-04-30] MEDS: ATORVASTATIN CALCIUM 40 MG TABLET. PO SCH (21:00)
[2021-04-30] MEDS: FAMOTIDINE 20 MG/2 ML VIAL IVP SCH (21:04)
[2021-04-30] MEDS: INSULIN GLARGINE SYRINGE. SQ SCH (21:10)
[2021-05-01] VITALS (15 sets, daily range): BP systolic 121–179; BP diastolic 51–85
[2021-05-01 05:10] LABS: BASO % 0 % (0-3); EOS % 0 % (0-3); HEMATOCRIT 36.8 % (39.0-53.0); HEMOGLOBIN 12.2 g/dL (13.0-17.5); LYMPH # 1.3 x10^3/uL (1.0-4.8); LYMPH % 13 % (24-48); MEAN CORPUSCULAR HEMOGLOBIN 30 pg (25-35); MEAN CORPUSCULAR HGB CONC 33 g/dL (31-37); MEAN CORPUSCULAR VOLUME 89 fL (79-100); MONO # 1.5 x10^3/uL (0.0-1.1); MONO % 14 % (0-9); NEUT # 7.5 x10^3/uL (1.8-7.7); NEUT % 73 % (31-73); PLATELET COUNT 312 x10^3/uL (140-400); RED BLOOD COUNT 4.12 x10^6/uL (4.30-5.70); RED CELL DISTRIBUTION WIDTH 13.8 % (11.5-14.5); WHITE BLOOD COUNT 10.4 x10^3/uL (4.0-11.0)
[2021-05-01 05:45] LABS: CALCIUM 8.9 mg/dL (8.5-10.1); CREATININE 1.2 mg/dL (0.7-1.3); GFR 73.5; POTASSIUM 3.9 mmol/L (3.5-5.1)
[2021-05-01] MEDS: INSULIN LISPRO 300 UNITS/3 ML VIAL. SQ SCH ×5 (06:00→22:01)
--- NOTE | 2021-05-01 07:37 | PDOC ---
[employer] PROGRESS NOTE Date of Service DOS: DATE: 05/01/21 TIME: 07:20 Chief Complaint Chief Complaint Acute respiratory failure with hypoxia Acute CHF Flash pulmonary edema Hypertensive emergency MICHAEL due to vasomotor nephropathy Transaminitis DM2 with hyperglycemia Severe malnutrition COVID-19 PUI Plan: Patient admitted to ICU on Cardene drip Consultation placed to cardiology and pulmonology We will continue to diurese patient with Lasix daily; monitor daily I's & O's. Echocardiogram has been ordered pending COVID-19 status. We will resume what home blood pressure medications we can at this time and wean off Cardene drip as tolerated Basal insulin COVID-19 pending FEN - NPO PPX - Lovenox FULL CODE Dispo - inpatient for above Unable to name surrogate decision-maker at this time History of Present Illness History of Present Illness Patient 66-year-old male past medical history DM2, HTN, presents to the ED from [facility] with complaints of shortness of breath. Much history is obtained through chart review due to clinical condition. Upon arrival by EMS she was saturating 94% on room air. He was diaphoretic and tachypneic, and subsequently placed on BiPAP. Labs on admission showed creatinine 1.4, CBG 333, AST 184, ALT 185, alk phos 153, BNP 1190, albumin 2.9. Blood pressure in the ED noted to be significantly elevated at 242/113 mmHg. He received Lasix and was placed on Cardene drip due to hypertensive emergency. Decision was made in ED to intubate patient due to worsening respiratory failure. Will be admitted to ICU for further medical management. 04/30/2021: Low-grade fever overnight, T-max 100.1 F. On vent with FiO2 40%, PEEP 5. Will follow cardiology recommendations. Continue diuresis with close monitoring of kidney function. 1940 mL urine output overnight. Echocardiogram showed normal left ventricular systolic function with a EF 55%; mild inferior wall hypokinesia, recommended outpatient ischemic evaluation. Blood pressure stable. Ventilator management per pulmonology; likely pursue CPAP trial the next 24 hours. Critical care time 30 minutes spent reviewing charts, reviewing imaging, reviewing labs, and discussion with RN. 05/01/2021: Febrile overnight, T-max 100.6 F. Extubated yesterday, now breathing on 3 L nasal cannula. 2490 mL urine output overnight. At home he was breathing on 3-4 L nasal cannula at baseline. States he has been compliant with his home Lasix but did not feel that this medication was keeping fluid off of him. Discussed nonpharmacological ways of addressing his CHF; sodium and fluid restriction. States he is swallowing well. We will continue to follow cardiology recommendations; diuresis with monitoring of renal function and outpatient ischemic evaluation. Chest x-ray yesterday showed increased right lower lobe infiltrate. Will obtain CRP and procalcitonin to help rule out any pulmonary infection. Critical care time 30 minutes spent reviewing charts, r eviewing imaging, reviewing labs, and discussion with RN. Vitals/I&O Vitals/I&O: Vital Signs Date Time Temp Pulse Resp B/P (MAP) Pulse Ox O2 Delivery O2 Flow Rate FiO2 05/01/21 06:24 79 17 157/64 (95) 99 Nasal Cannula 3.0 04/30/21 23:00 98.7 98.7 I & O 04/30/21 04/30/21 05/01/21 15:00 23:00 07:00 Intake Total 360 ml 0 ml Output Total 800 ml 1690 ml Balance -800 ml -1330 ml 0 ml Physical Exam General: Alert, Oriented X3, Cooperative, mild distress, Other Heart: Regular rate Lungs: Crackles Abdomen: Other (obese) Extremities: No cyanosis, Other (trace bilateral LE edema ) Skin: No rashes, No significant lesion Labs Labs: Laboratory Tests Test 04/30/21 08:15 04/30/21 08:45 04/30/21 12:09 04/30/21 13:15 White Blood Count 9.9 x10^3/uL (4.0-11.0) Red Blood Count 3.99 x10^6/uL (4.30-5.70) Hemoglobin 11.8 g/dL (13.0-17.5) Hematocrit 36.1 % (39.0-53.0) Mean Corpuscular Volume 90 fL (79-100) Mean Corpuscular Hemoglobin 30 pg (25-35) Mean Corpuscular Hemoglobin Concent 33 g/dL (31-37) Red Cell Distribution Width 13.8 % (11.5-14.5) Platelet Count 303 x10^3/uL (140-400) Neutrophils (%) (Auto) 76 % (31-73) Lymphocytes (%) (Auto) 11 % (24-48) Monocytes (%) (Auto) 12 % (0-9) Eosinophils (%) (Auto) 0 % (0-3) Basophils (%) (Auto) 1 % (0-3) Neutrophils # (Auto) 7.5 x10^3/uL (1.8-7.7) Lymphocytes # (Auto) 1.1 x10^3/uL (1.0-4.8) Monocytes # (Auto) 1.2 x10^3/uL (0.0-1.1) Eosinophils # (Auto) 0.0 x10^3/uL (0.0-0.7) Basophils # (Auto) 0.1 x10^3/uL (0.0-0.2) Sodium Level 142 mmol/L (136-145) Potassium Level 4.5 mmol/L (3.5-5.1) Chloride Level 107 mmol/L (98-107) Carbon Dioxide Level 30 mmol/L (21-32) Anion Gap 5 (6-14) Blood Urea Nitrogen 29 mg/dL (8-26) Creatinine 1.5 mg/dL (0.7-1.3) Estimated GFR (Cockcroft-Gault) 56.8 Glucose Level 235 mg/dL (70-99) Calcium Level 8.4 mg/dL (8.5-10.1) Total Bilirubin 0.2 mg/dL (0.2-1.0) Direct Bilirubin 0.1 mg/dL (0.0-0.2) Aspartate Amino Transf (AST/SGOT) 59 U/L (15-37) Alanine Aminotransferase (ALT/SGPT) 109 U/L (16-63) Alkaline Phosphatase 98 U/L (46-116) Total Protein 5.9 g/dL (6.4-8.2) Albumin 2.5 g/dL (3.4-5.0) O2 Saturation 95 % (92-99) 95 % (92-99) Arterial Blood pH 7.42 (7.35-7.45) 7.44 (7.35-7.45) Arterial Blood pCO2 at Patient Temp 39 mmHg (35-46) 45 mmHg (35-46) Arterial Blood pO2 at Patient Temp 77 mmHg (65-108) 73 mmHg (65-108) Arterial Blood HCO3 25 mmol/L (21-28) 30 mmol/L (21-28) Arterial Blood Base Excess 1 mmol/L (-3-3) 5 mmol/L (-3-3) FiO2 40%vent Vent/cpap 10-5 40% Glucose (Fingerstick) 221 mg/dL (70-99) Test 04/30/21 18:31 04/30/21 20:55 05/01/21 05:00 Glucose (Fingerstick) 218 mg/dL (70-99) 184 mg/dL (70-99) White Blood Count 10.4 x10^3/uL (4.0-11.0) Red Blood Count 4.12 x10^6/uL (4.30-5.70) Hemoglobin 12.2 g/dL (13.0-17.5) Hematocrit 36.8 % (39.0-53.0) Mean Corpuscular Volume 89 fL (79-100) Mean Corpuscular Hemoglobin 30 pg (25-35) Mean Corpuscular Hemoglobin Concent 33 g/dL (31-37) Red Cell Distribution Width 13.8 % (11.5-14.5) Platelet Count 312 x10^3/uL (140-400) Neutrophils (%) (Auto) 73 % (31-73) Lymphocytes (%) (Auto) 13 % (24-48) Monocytes (%) (Auto) 14 % (0-9) Eosinophils (%) (Auto) 0 % (0-3) Basophils (%) (Auto) 0 % (0-3) Neutrophils # (Auto) 7.5 x10^3/uL (1.8-7.7) Lymphocytes # (Auto) 1.3 x10^3/uL (1.0-4.8) Monocytes # (Auto) 1.5 x10^3/uL (0.0-1.1) Eosinophils # (Auto) 0.0 x10^3/uL (0.0-0.7) Basophils # (Auto) 0.0 x10^3/uL (0.0-0.2) Sodium Level 144 mmol/L (136-145) Potassium Level 3.9 mmol/L (3.5-5.1) Chloride Level 106 mmol/L (98-107) Carbon Dioxide Level 30 mmol/L (21-32) Anion Gap 8 (6-14) Blood Urea Nitrogen 23 mg/dL (8-26) Creatinine 1.2 mg/dL (0.7-1.3) Estimated GFR (Cockcroft-Gault) 73.5 Glucose Level 163 mg/dL (70-99) Calcium Level 8.9 mg/dL (8.5-10.1) Assessment and Plan Assessmemt and Plan Problems Medical Problems: (1) Flash pulmonary edema Status: Acute (2) Hypertensive emergency Status: Acute (3) Respiratory failure Status: Acute Comment Review of Relevant I have reviewed the following items fabricio (where applicable) has been applied. Medications: Current Medications Medications (Trade) Dose Ordered Sig/Rhys Route PRN Reason Start Time Stop Time Status Last Admin Dose Admin Furosemide (Lasix) 40 mg DAILY IVP 04/30/21 09:00 04/30/21 10:02 Insulin Human Lispro (HumaLOG) 0-7 UNITS Q6HRS SQ 04/30/21 12:00 04/30/21 18:33 Furosemide (Lasix) 40 mg 1X ONCE IVP 04/30/21 16:45 04/30/21 16:46 DC 04/30/21 17:26 Hydralazine HCl (Apresoline Inj) 10 mg PRN Q4HRS PRN IVP ELEVATED BP, SEE COMMENTS 04/30/21 16:45 05/01/21 04:10 Justifications for Admission Other Justification BRYAN MCCLOUD MD May 01, 2021 07:37
[2021-05-01] MEDS: FUROSEMIDE 40 MG/4 ML VIAL. IVP SCH (08:52)
[2021-05-01] MEDS: hydroCHLOROthiazide 25 MG TABLET PO SCH ×2 (09:59→16:41)
[2021-05-01] MEDS: LOSARTAN POTASSIUM 25 MG TABLET. PO SCH (09:59)
--- NOTE | 2021-05-01 10:21 | PDOC ---
PULMONARY PROGRESS NOTES DATE: 05/01/21 TIME: 10:20 Subjective Patient did well on CPAP trial yesterday afternoon. Extubated 04/30/2021 Doing well on nasal cannula Vitals Vital Signs Date Time Temp Pulse Resp B/P (MAP) Pulse Ox O2 Delivery O2 Flow Rate FiO2 05/01/21 09:59 73 163/68 05/01/21 08:00 18 100 Nasal Cannula 3.0 05/01/21 07:00 98.1 98.1 General: Alert, No acute distress Lungs: Clear Cardiovascular: S1 Abdomen: Soft Extremities: Other (1+ edema) Skin: Warm Labs Laboratory Tests Test 04/29/21 10:26 04/29/21 11:15 04/29/21 13:00 04/29/21 18:51 Glucose (Fingerstick) 257 mg/dL (70-99) 149 mg/dL (70-99) Troponin I Quantitative < 0.017 ng/mL (0.000-0.055) O2 Saturation 95 % (92-99) Arterial Blood pH 7.53 (7.35-7.45) Arterial Blood pCO2 at Patient Temp 33 mmHg (35-46) Arterial Blood pO2 at Patient Temp 72 mmHg (65-108) Arterial Blood HCO3 27 mmol/L (21-28) Arterial Blood Base Excess 4 mmol/L (-3-3) FiO2 40/vent Test 04/29/21 19:33 04/30/21 01:07 04/30/21 08:15 04/30/21 08:45 Glucose (Fingerstick) 143 mg/dL (70-99) 129 mg/dL (70-99) White Blood Count 9.9 x10^3/uL (4.0-11.0) Red Blood Count 3.99 x10^6/uL (4.30-5.70) Hemoglobin 11.8 g/dL (13.0-17.5) Hematocrit 36.1 % (39.0-53.0) Mean Corpuscular Volume 90 fL (79-100) Mean Corpuscular Hemoglobin 30 pg (25-35) Mean Corpuscular Hemoglobin Concent 33 g/dL (31-37) Red Cell Distribution Width 13.8 % (11.5-14.5) Platelet Count 303 x10^3/uL (140-400) Neutrophils (%) (Auto) 76 % (31-73) Lymphocytes (%) (Auto) 11 % (24-48) Monocytes (%) (Auto) 12 % (0-9) Eosinophils (%) (Auto) 0 % (0-3) Basophils (%) (Auto) 1 % (0-3) Neutrophils # (Auto) 7.5 x10^3/uL (1.8-7.7) Lymphocytes # (Auto) 1.1 x10^3/uL (1.0-4.8) Monocytes # (Auto) 1.2 x10^3/uL (0.0-1.1) Eosinophils # (Auto) 0.0 x10^3/uL (0.0-0.7) Basophils # (Auto) 0.1 x10^3/uL (0.0-0.2) Sodium Level 142 mmol/L (136-145) Potassium Level 4.5 mmol/L (3.5-5.1) Chloride Level 107 mmol/L (98-107) Carbon Dioxide Level 30 mmol/L (21-32) Anion Gap 5 (6-14) Blood Urea Nitrogen 29 mg/dL (8-26) Creatinine 1.5 mg/dL (0.7-1.3) Estimated GFR (Cockcroft-Gault) 56.8 Glucose Level 235 mg/dL (70-99) Calcium Level 8.4 mg/dL (8.5-10.1) Total Bilirubin 0.2 mg/dL (0.2-1.0) Direct Bilirubin 0.1 mg/dL (0.0-0.2) Aspartate Amino Transf (AST/SGOT) 59 U/L (15-37) Alanine Aminotransferase (ALT/SGPT) 109 U/L (16-63) Alkaline Phosphatase 98 U/L (46-116) Total Protein 5.9 g/dL (6.4-8.2) Albumin 2.5 g/dL (3.4-5.0) O2 Saturation 95 % (92-99) Arterial Blood pH 7.42 (7.35-7.45) Arterial Blood pCO2 at Patient Temp 39 mmHg (35-46) Arterial Blood pO2 at Patient Temp 77 mmHg (65-108) Arterial Blood HCO3 25 mmol/L (21-28) Arterial Blood Base Excess 1 mmol/L (-3-3) FiO2 40%vent Test 04/30/21 12:09 04/30/21 13:15 04/30/21 18:31 04/30/21 20:55 O2 Saturation 95 % (92-99) Arterial Blood pH 7.44 (7.35-7.45) Arterial Blood pCO2 at Patient Temp 45 mmHg (35-46) Arterial Blood pO2 at Patient Temp 73 mmHg (65-108) Arterial Blood HCO3 30 mmol/L (21-28) Arterial Blood Base Excess 5 mmol/L (-3-3) FiO2 Vent/cpap 10-5 40% Glucose (Fingerstick) 221 mg/dL (70-99) 218 mg/dL (70-99) 184 mg/dL (70-99) Test 05/01/21 05:00 White Blood Count 10.4 x10^3/uL (4.0-11.0) Red Blood Count 4.12 x10^6/uL (4.30-5.70) Hemoglobin 12.2 g/dL (13.0-17.5) Hematocrit 36.8 % (39.0-53.0) Mean Corpuscular Volume 89 fL (79-100) Mean Corpuscular Hemoglobin 30 pg (25-35) Mean Corpuscular Hemoglobin Concent 33 g/dL (31-37) Red Cell Distribution Width 13.8 % (11.5-14.5) Platelet Count 312 x10^3/uL (140-400) Neutrophils (%) (Auto) 73 % (31-73) Lymphocytes (%) (Auto) 13 % (24-48) Monocytes (%) (Auto) 14 % (0-9) Eosinophils (%) (Auto) 0 % (0-3) Basophils (%) (Auto) 0 % (0-3) Neutrophils # (Auto) 7.5 x10^3/uL (1.8-7.7) Lymphocytes # (Auto) 1.3 x10^3/uL (1.0-4.8) Monocytes # (Auto) 1.5 x10^3/uL (0.0-1.1) Eosinophils # (Auto) 0.0 x10^3/uL (0.0-0.7) Basophils # (Auto) 0.0 x10^3/uL (0.0-0.2) Sodium Level 144 mmol/L (136-145) Potassium Level 3.9 mmol/L (3.5-5.1) Chloride Level 106 mmol/L (98-107) Carbon Dioxide Level 30 mmol/L (21-32) Anion Gap 8 (6-14) Blood Urea Nitrogen 23 mg/dL (8-26) Creatinine 1.2 mg/dL (0.7-1.3) Estimated GFR (Cockcroft-Gault) 73.5 Glucose Level 163 mg/dL (70-99) Calcium Level 8.9 mg/dL (8.5-10.1) Laboratory Tests Test 04/30/21 12:09 04/30/21 13:15 04/30/21 18:31 04/30/21 20:55 O2 Saturation 95 % (92-99) Arterial Blood pH 7.44 (7.35-7.45) Arterial Blood pCO2 at Patient Temp 45 mmHg (35-46) Arterial Blood pO2 at Patient Temp 73 mmHg (65-108) Arterial Blood HCO3 30 mmol/L (21-28) Arterial Blood Base Excess 5 mmol/L (-3-3) FiO2 Vent/cpap 10-5 40% Glucose (Fingerstick) 221 mg/dL (70-99) 218 mg/dL (70-99) 184 mg/dL (70-99) Test 05/01/21 05:00 White Blood Count 10.4 x10^3/uL (4.0-11.0) Red Blood Count 4.12 x10^6/uL (4.30-5.70) Hemoglobin 12.2 g/dL (13.0-17.5) Hematocrit 36.8 % (39.0-53.0) Mean Corpuscular Volume 89 fL (79-100) Mean Corpuscular Hemoglobin 30 pg (25-35) Mean Corpuscular Hemoglobin Concent 33 g/dL (31-37) Red Cell Distribution Width 13.8 % (11.5-14.5) Platelet Count 312 x10^3/uL (140-400) Neutrophils (%) (Auto) 73 % (31-73) Lymphocytes (%) (Auto) 13 % (24-48) Monocytes (%) (Auto) 14 % (0-9) Eosinophils (%) (Auto) 0 % (0-3) Basophils (%) (Auto) 0 % (0-3) Neutrophils # (Auto) 7.5 x10^3/uL (1.8-7.7) Lymphocytes # (Auto) 1.3 x10^3/uL (1.0-4.8) Monocytes # (Auto) 1.5 x10^3/uL (0.0-1.1) Eosinophils # (Auto) 0.0 x10^3/uL (0.0-0.7) Basophils # (Auto) 0.0 x10^3/uL (0.0-0.2) Sodium Level 144 mmol/L (136-145) Potassium Level 3.9 mmol/L (3.5-5.1) Chloride Level 106 mmol/L (98-107) Carbon Dioxide Level 30 mmol/L (21-32) Anion Gap 8 (6-14) Blood Urea Nitrogen 23 mg/dL (8-26) Creatinine 1.2 mg/dL (0.7-1.3) Estimated GFR (Cockcroft-Gault) 73.5 Glucose Level 163 mg/dL (70-99) Calcium Level 8.9 mg/dL (8.5-10.1) Medications Active Scripts Medications Dose Route/Sig Max Daily Dose Days Date Category Ventolin Hfa (Albuterol Sulfate) 8 Gm Hfa.aer.ad 1 Puff INH PRN Q4HRS PRN 30 02/04/21 Rx Multi Vitamin Daily (Multivitamin) 1 Each Tablet 1 Tab PO DAILY 30 02/04/21 Reported Gabapentin 600 Mg Tablet 300 Mg PO DAILY 02/04/21 Reported Lantus Solostar (Insulin Glargine,Hum.rec.anlog) 100 Unit/1 Ml Insuln.pen 40 Unit SQ QHS 02/04/21 Reported Novolog (Insulin Aspart) 100 Unit/1 Ml Cartridge 15 Unit SQ TIDAC 02/04/21 Reported Atorvastatin Calcium 40 Mg Tablet 80 Mg PO HS 02/04/21 Reported Losartan Potassium 50 Mg Tablet 25 Mg PO DAILY 02/04/21 Reported Hydrochlorothiazide Tablet (Hydrochlorothiazide) 25 Mg Tablet 12.5 Mg PO BID 02/04/21 Reported Comments Chest x-ray 04/30/2021 Mild improvement in CHF Impression . 1. Acute hypercapnic respiratory failure secondary to acute flash pulmonary edema from hypertensive urgency. Extubated 04/30 2. Hypertensive urgency triggering diastolic congestive heart failure. 3. Abnormal chest x-ray consistent with congestive heart failure. 4. COVID-19 negative. 5. History of addictions, but urine drug screen negative. 6. Abnormal AST and ALT related to hypoperfusion. Plan . 1. Oxygen status has improved. Continue nasal cannula. 2. Follow cardiology recommendations. 3. Follow chest x-ray and ABGs as needed. 4. Diuresis. 5. Follow up chest x-ray. 6. DVT prophylaxis and stress ulcer prophylaxis. 7. Enteral nutrition. 8. Discussed with RN/RT 9. Transfer to the floor MICHELLE DURAN MD May 01, 2021 10:21
--- NOTE | 2021-05-01 12:20 | PDOC ---
COOPER MILLARD [employer] 05/01/21 1220: CARDIO Progress Notes Date and Time Date of Service 05/01/21 Time of Evaluation 1200 Subjective Subjective: Other (breathing improved ) Vitals Vitals Vital Signs Date Time Temp Pulse Resp B/P (MAP) Pulse Ox O2 Delivery O2 Flow Rate FiO2 05/01/21 11:00 98.0 70 16 161/63 (95) 96 Nasal Cannula 3.0 98.0 Weight Weight [ ] Input and Output Intake and Output Intake and Output 05/01/21 07:00 Intake Total 360 ml Output Total 2490 ml Balance -2130 ml Intake Oral 360 ml Output Urine Total 2490 ml Laboratory Labs Laboratory Tests Test 04/30/21 13:15 04/30/21 18:31 04/30/21 20:55 05/01/21 05:00 Glucose (Fingerstick) 221 mg/dL (70-99) 218 mg/dL (70-99) 184 mg/dL (70-99) White Blood Count 10.4 x10^3/uL (4.0-11.0) Red Blood Count 4.12 x10^6/uL (4.30-5.70) Hemoglobin 12.2 g/dL (13.0-17.5) Hematocrit 36.8 % (39.0-53.0) Mean Corpuscular Volume 89 fL (79-100) Mean Corpuscular Hemoglobin 30 pg (25-35) Mean Corpuscular Hemoglobin Concent 33 g/dL (31-37) Red Cell Distribution Width 13.8 % (11.5-14.5) Platelet Count 312 x10^3/uL (140-400) Neutrophils (%) (Auto) 73 % (31-73) Lymphocytes (%) (Auto) 13 % (24-48) Monocytes (%) (Auto) 14 % (0-9) Eosinophils (%) (Auto) 0 % (0-3) Basophils (%) (Auto) 0 % (0-3) Neutrophils # (Auto) 7.5 x10^3/uL (1.8-7.7) Lymphocytes # (Auto) 1.3 x10^3/uL (1.0-4.8) Monocytes # (Auto) 1.5 x10^3/uL (0.0-1.1) Eosinophils # (Auto) 0.0 x10^3/uL (0.0-0.7) Basophils # (Auto) 0.0 x10^3/uL (0.0-0.2) Sodium Level 144 mmol/L (136-145) Potassium Level 3.9 mmol/L (3.5-5.1) Chloride Level 106 mmol/L (98-107) Carbon Dioxide Level 30 mmol/L (21-32) Anion Gap 8 (6-14) Blood Urea Nitrogen 23 mg/dL (8-26) Creatinine 1.2 mg/dL (0.7-1.3) Estimated GFR (Cockcroft-Gault) 73.5 Glucose Level 163 mg/dL (70-99) Calcium Level 8.9 mg/dL (8.5-10.1) Test 05/01/21 12:11 Glucose (Fingerstick) 206 mg/dL (70-99) Physical Exam HEENT: Neck Supple W Full Motion Chest: Symmetric LUNGS: Other (diminished bases) Heart: RRR Abdomen: Soft N/T Extremities: Other (1+ bilateral LE edema ) Neurology: alert, follow commands Assessment Assessment 1. Acute on chronic respiratory failure; s/p extubation. on NC 2. Acute on chronic diastolic CHF in setting of hypertensive urgency. s/p IV diuresis. Echo with preserved LV systolic function 3. Hypertensive urgency; labile 4. Hyperlipidemia; statin 5. Diabetes, II 6. Elevated LFTs 7. H/o substance abuse; UDS negative Recommendations Diuresis with monitoring of renal function BP control; increase losartan Ongoing lung optimization Outpatient ischemic evaluation Supportive care Justicifation of Admission Dx: Justifications for Admission: Justification of Admission Dx: Yes CHF: Hemodynamic Instability WELLINGTON ASHRAF MD 05/01/212021: CARDIO Progress Notes Plan Plan The patient was seen and interviewed as well as examined at the bedside. The chart was reviewed. The case was discussed. Agree with the plan of care. COOPER MILLARD APRN May 01, 2021 12:20 WELLINGTON ASHRAF MD May 01, 2021 20:22
[2021-05-01] MEDS: ENOXAPARIN 40 MG/0.4 ML SYRINGE. SQ SCH (12:25)
--- NOTE | 2021-05-01 15:09 | NUR ---
SS following up with discharge planning. SS reviewed pt chart and discussed with pt RN. Pt extubated and currently on three liters nasal canula. Pt on clear liquid diet. ST ordered. PT/OT to be ordered. Pt on IV Lasix. Pt has no home oxygen. Pt transferred to room 664 today. SS will continue to follow for discharge planning.
[2021-05-01] MEDS ORDERED: POTASSIUM CHLORIDE 20 MEQ TABLET.ER. PO ONE (16:30)
[2021-05-01] MEDS ORDERED: ZOLPIDEM 5 MG TABLET. PO PRN (16:30)
[2021-05-01] MEDS ORDERED: ONDANSETRON PF 4 MG/2 ML VIAL. IVP PRN (16:30)
[2021-05-01] MEDS ORDERED: FUROSEMIDE 40 MG/4 ML VIAL. IVP ONE (16:30)
[2021-05-01] MEDS: ACETAMINOPHEN 325 MG TABLET. PO PRN (16:41)
[2021-05-01] MEDS: CARVEDILOL 3.125 MG TABLET. PO SCH (16:43)
[2021-05-01] MEDS: FAMOTIDINE 20 MG/2 ML VIAL IVP SCH (20:45)
[2021-05-01] MEDS: ATORVASTATIN CALCIUM 40 MG TABLET. PO SCH (20:45)
[2021-05-01] MEDS: HYDROcodone/APAP 5/325MG 1 TAB TABLET PO PRN (20:46)
[2021-05-01] MEDS: INSULIN GLARGINE SYRINGE. SQ SCH (20:47)
[2021-05-02] MEDS: HYDROcodone/APAP 5/325MG 1 TAB TABLET PO PRN ×3 (00:57→14:33)
[2021-05-02 02:31] VITALS: BP 148/58
[2021-05-02 06:36] LABS: BASO % 0 % (0-3); EOS # 0.1 x10^3/uL (0.0-0.7); EOS % 2 % (0-3); HEMATOCRIT 35.9 % (39.0-53.0); HEMOGLOBIN 11.9 g/dL (13.0-17.5); LYMPH # 1.1 x10^3/uL (1.0-4.8); LYMPH % 13 % (24-48); MEAN CORPUSCULAR HEMOGLOBIN 30 pg (25-35); MEAN CORPUSCULAR HGB CONC 33 g/dL (31-37); MEAN CORPUSCULAR VOLUME 89 fL (79-100); MONO % 12 % (0-9); NEUT # 6.1 x10^3/uL (1.8-7.7); NEUT % 73 % (31-73); PLATELET COUNT 331 x10^3/uL (140-400); RED BLOOD COUNT 4.01 x10^6/uL (4.30-5.70); RED CELL DISTRIBUTION WIDTH 13.5 % (11.5-14.5); WHITE BLOOD COUNT 8.4 x10^3/uL (4.0-11.0)
[2021-05-02 06:44] LABS: CALCIUM 8.7 mg/dL (8.5-10.1); CREATININE 1.3 mg/dL (0.7-1.3); POTASSIUM 3.8 mmol/L (3.5-5.1)
[2021-05-02 07:00] VITALS: BP 152/63
[2021-05-02 07:15] LABS: ALBUMIN 2.6 g/dL (3.4-5.0); DIRECT BILIRUBIN 0.1 mg/dL (0.0-0.2); TOTAL BILIRUBIN 0.4 mg/dL (0.2-1.0)
[2021-05-02] MEDS: hydroCHLOROthiazide 25 MG TABLET PO SCH ×2 (08:18→14:32)
[2021-05-02] MEDS: CARVEDILOL 3.125 MG TABLET. PO SCH (08:18)
[2021-05-02] MEDS: FUROSEMIDE 40 MG/4 ML VIAL. IVP SCH (08:20)
--- NOTE | 2021-05-02 08:54 | PDOC ---
PROGRESS NOTES Date of Service: DATE: 05/02/21 TIME: 08:54 Chief Complaint Chief Complaint Acute respiratory failure with hypoxia Acute CHF Flash pulmonary edema Hypertensive emergency MICHAEL due to vasomotor nephropathy Transaminitis DM2 with hyperglycemia Severe malnutrition COVID-19 PUI Plan: Patient admitted to ICU on Cardene drip Consultation placed to cardiology and pulmonology We will continue to diurese patient with Lasix daily; monitor daily I's & O's. Echocardiogram has been ordered pending COVID-19 status. We will resume what home blood pressure medications we can at this time and wean off Cardene drip as tolerated Basal insulin COVID-19 pending FEN - NPO PPX - Lovenox FULL CODE Dispo - inpatient for above Unable to name surrogate decision-maker at this time History of Present Illness History of Present Illness Patient 66-year-old male past medical history DM2, HTN, presents to the ED from [facility] with complaints of shortness of breath. Much history is obtained through chart review due to clinical condition. Upon arrival by EMS she was saturating 94% on room air. He was diaphoretic and tachypneic, and subsequently placed on BiPAP. Labs on admission showed creatinine 1.4, CBG 333, AST 184, ALT 185, alk phos 153, BNP 1190, albumin 2.9. Blood pressure in the ED noted to be significantly elevated at 242/113 mmHg. He received Lasix and was placed on Cardene drip due to hypertensive emergency. Decision was made in ED to intubate patient due to worsening respiratory failure. Will be admitted to ICU for further medical management. 04/30/2021: Low-grade fever overnight, T-max 100.1 F. On vent with FiO2 40%, PEEP 5. Will follow cardiology recommendations. Continue diuresis with close monitoring of kidney function. 1940 mL urine output overnight. Echocardiogram showed normal left ventricular systolic function with a EF 55%; mild inferior wall hypokinesia, recommended outpatient ischemic evaluation. Blood pressure stable. Ventilator management per pulmonology; likely pursue CPAP trial the next 24 hours. Critical care time 30 minutes spent reviewing charts, reviewing imaging, reviewing labs, and discussion with RN. 05/01/2021: Febrile overnight, T-max 100.6 F. Extubated yesterday, now breathing on 3 L nasal cannula. 2490 mL urine output overnight. At home he was breathing on 3-4 L nasal cannula at baseline. States he has been compliant with his home Lasix but did not feel that this medication was keeping fluid off of him. Discussed nonpharmacological ways of addressing his CHF; sodium and fluid restriction. States he is swallowing well. We will continue to follow cardiology recommendations; diuresis with monitoring of renal function and out patient ischemic evaluation. Chest x-ray yesterday showed increased right lower lobe infiltrate. Will obtain CRP and procalcitonin to help rule out any pulmonary infection. Critical care time 30 minutes spent reviewing charts, reviewing imaging, reviewing labs, and discussion with RN. 05/02/2021: Acute on chronic diastolic CHF in setting of hypertensive urgency. s/p IV diuresis. Echo with preserved LV systolic function Near complete resolution of right lower lobe infiltrate. CXR 05-02 Acute hypercapnic respiratory failure secondary to acute flash pulmonary edema from hypertensive urgency. Extubated 04/30 Hypertensive urgency triggering diastolic congestive heart failure. Febrile 04-30 T-max 100.6 F. Extubated 04-30 , now breathing on 3 L At home 3-4 L nasal cannula at baseline. States he has been compliant with his home Lasix but did not feel that this medication was keeping fluid off of him. Discussed nonpharmacological ways of addressing his CHF; sodium and fluid restriction. swallowing well. We will continue to follow cardiology recommendations; diuresis with monitoring of renal function outpatient ischemic evaluation. Chest x-ray 04-30 showed increased right lower lobe infiltrate. CRP and procalcitonin to help rule out any pulmonary infection. CRP 126.9 discussion with RN. A1C 10.1 Vitals Vitals Vital Signs Date Time Temp Pulse Resp B/P (MAP) Pulse Ox O2 Delivery O2 Flow Rate FiO2 05/02/21 08:19 18 96 Nasal Cannula 2.0 05/02/21 08:19 70 152/63 05/02/21 07:00 98.0 98.0 Physical Exam General: Alert, Oriented X3, Cooperative, No acute distress, Other Heart: Regular rate Lungs: Clear Abdomen: Soft, Other (obese) Extremities: No clubbing, No cyanosis, Other (trace bilateral LE edema ) Skin: No rashes, No significant lesion Labs LABS PATIENT: BIA ORTIZ ACCOUNT: [id number] : 1955 LOCATION: [address] [place] [address] AGE: 66 SEX: M EXAM STATUS: ADM IN ORD. PHYSICIAN: MICHELLE DURAN MD REASON: chf PROCEDURE: PORTABLE CHEST 1V EXAM: Chest, single view. HISTORY: Congestive heart failure. COMPARISON: 04/30/2021. FINDINGS: A frontal view of the chest is obtained. There has been near complete resolution of previously demonstrated right lower lobe infiltrate and a suspected small right pleural effusion. There is stable mild diffuse interstitial prominence. There is a stable cardiac silhouette. There has been interval removal of an endotracheal tube and nasogastric tube. There is no pneumothorax. IMPRESSION: 1. Near complete resolution of right lower lobe infiltrate. 2. Stable mild diffuse interstitial prominence. Electronically signed by: Maya Starks MD (05/02/2021 11:45 AM) [id number] DICTATED and SIGNED BY: MAYA STARKS MD DATE: 05/02/21 [id number] Laboratory Tests Test 05/01/21 12:11 05/01/21 16:47 05/01/21 20:47 05/02/21 03:30 Glucose (Fingerstick) 206 mg/dL (70-99) 189 mg/dL (70-99) 170 mg/dL (70-99) White Blood Count 8.4 x10^3/uL (4.0-11.0) Red Blood Count 4.01 x10^6/uL (4.30-5.70) Hemoglobin 11.9 g/dL (13.0-17.5) Hematocrit 35.9 % (39.0-53.0) Mean Corpuscular Volume 89 fL (79-100) Mean Corpuscular Hemoglobin 30 pg (25-35) Mean Corpuscular Hemoglobin Concent 33 g/dL (31-37) Red Cell Distribution Width 13.5 % (11.5-14.5) Platelet Count 331 x10^3/uL (140-400) Neutrophils (%) (Auto) 73 % (31-73) Lymphocytes (%) (Auto) 13 % (24-48) Monocytes (%) (Auto) 12 % (0-9) Eosinophils (%) (Auto) 2 % (0-3) Basophils (%) (Auto) 0 % (0-3) Neutrophils # (Auto) 6.1 x10^3/uL (1.8-7.7) Lymphocytes # (Auto) 1.1 x10^3/uL (1.0-4.8) Monocytes # (Auto) 1.0 x10^3/uL (0.0-1.1) Eosinophils # (Auto) 0.1 x10^3/uL (0.0-0.7) Basophils # (Auto) 0.0 x10^3/uL (0.0-0.2) Sodium Level 143 mmol/L (136-145) Potassium Level 3.8 mmol/L (3.5-5.1) Chloride Level 104 mmol/L (98-107) Carbon Dioxide Level 31 mmol/L (21-32) Anion Gap 8 (6-14) Blood Urea Nitrogen 23 mg/dL (8-26) Creatinine 1.3 mg/dL (0.7-1.3) Estimated GFR (Cockcroft-Gault) 67.0 Glucose Level 138 mg/dL (70-99) Calcium Level 8.7 mg/dL (8.5-10.1) Total Bilirubin 0.4 mg/dL (0.2-1.0) Direct Bilirubin 0.1 mg/dL (0.0-0.2) Aspartate Amino Transf (AST/SGOT) 31 U/L (15-37) Alanine Aminotransferase (ALT/SGPT) 70 U/L (16-63) Alkaline Phosphatase 86 U/L (46-116) C-Reactive Protein, Quantitative 126.9 mg/L (0-3.3) Total Protein 6.0 g/dL (6.4-8.2) Albumin 2.6 g/dL (3.4-5.0) Procalcitonin 0.30 ng/mL (0.00-0.10) Test 05/02/21 07:22 Glucose (Fingerstick) 148 mg/dL (70-99) Assessment and Plan Assessmemt and Plan Problems Medical Problems: (1) Flash pulmonary edema Status: Acute (2) Hypertensive emergency Status: Acute (3) Respiratory failure Status: Acute Comment Review of Relevant I have reviewed the following items fabricio (where applicable) has been applied. Labs Laboratory Tests Test 04/30/21 12:09 04/30/21 13:15 04/30/21 18:31 04/30/21 20:55 O2 Saturation 95 % (92-99) Arterial Blood pH 7.44 (7.35-7.45) Arterial Blood pCO2 at Patient Temp 45 mmHg (35-46) Arterial Blood pO2 at Patient Temp 73 mmHg (65-108) Arterial Blood HCO3 30 mmol/L (21-28) Arterial Blood Base Excess 5 mmol/L (-3-3) FiO2 Vent/cpap 10-5 40% Glucose (Fingerstick) 221 mg/dL (70-99) 218 mg/dL (70-99) 184 mg/dL (70-99) Test 05/01/21 05:00 05/01/21 12:11 05/01/21 16:47 05/01/21 20:47 White Blood Count 10.4 x10^3/uL (4.0-11.0) Red Blood Count 4.12 x10^6/uL (4.30-5.70) Hemoglobin 12.2 g/dL (13.0-17.5) Hematocrit 36.8 % (39.0-53.0) Mean Corpuscular Volume 89 fL (79-100) Mean Corpuscular Hemoglobin 30 pg (25-35) Mean Corpuscular Hemoglobin Concent 33 g/dL (31-37) Red Cell Distribution Width 13.8 % (11.5-14.5) Platelet Count 312 x10^3/uL (140-400) Neutrophils (%) (Auto) 73 % (31-73) Lymphocytes (%) (Auto) 13 % (24-48) Monocytes (%) (Auto) 14 % (0-9) Eosinophils (%) (Auto) 0 % (0-3) Basophils (%) (Auto) 0 % (0-3) Neutrophils # (Auto) 7.5 x10^3/uL (1.8-7.7) Lymphocytes # (Auto) 1.3 x10^3/uL (1.0-4.8) Monocytes # (Auto) 1.5 x10^3/uL (0.0-1.1) Eosinophils # (Auto) 0.0 x10^3/uL (0.0-0.7) Basophils # (Auto) 0.0 x10^3/uL (0.0-0.2) Sodium Level 144 mmol/L (136-145) Potassium Level 3.9 mmol/L (3.5-5.1) Chloride Level 106 mmol/L (98-107) Carbon Dioxide Level 30 mmol/L (21-32) Anion Gap 8 (6-14) Blood Urea Nitrogen 23 mg/dL (8-26) Creatinine 1.2 mg/dL (0.7-1.3) Estimated GFR (Cockcroft-Gault) 73.5 Glucose Level 163 mg/dL (70-99) Calcium Level 8.9 mg/dL (8.5-10.1) Glucose (Fingerstick) 206 mg/dL (70-99) 189 mg/dL (70-99) 170 mg/dL (70-99) Test 05/02/21 03:30 05/02/21 07:22 White Blood Count 8.4 x10^3/uL (4.0-11.0) Red Blood Count 4.01 x10^6/uL (4.30-5.70) Hemoglobin 11.9 g/dL (13.0-17.5) Hematocrit 35.9 % (39.0-53.0) Mean Corpuscular Volume 89 fL (79-100) Mean Corpuscular Hemoglobin 30 pg (25-35) Mean Corpuscular Hemoglobin Concent 33 g/dL (31-37) Red Cell Distribution Width 13.5 % (11.5-14.5) Platelet Count 331 x10^3/uL (140-400) Neutrophils (%) (Auto) 73 % (31-73) Lymphocytes (%) (Auto) 13 % (24-48) Monocytes (%) (Auto) 12 % (0-9) Eosinophils (%) (Auto) 2 % (0-3) Basophils (%) (Auto) 0 % (0-3) Neutrophils # (Auto) 6.1 x10^3/uL (1.8-7.7) Lymphocytes # (Auto) 1.1 x10^3/uL (1.0-4.8) Monocytes # (Auto) 1.0 x10^3/uL (0.0-1.1) Eosinophils # (Auto) 0.1 x10^3/uL (0.0-0.7) Basophils # (Auto) 0.0 x10^3/uL (0.0-0.2) Sodium Level 143 mmol/L (136-145) Potassium Level 3.8 mmol/L (3.5-5.1) Chloride Level 104 mmol/L (98-107) Carbon Dioxide Level 31 mmol/L (21-32) Anion Gap 8 (6-14) Blood Urea Nitrogen 23 mg/dL (8-26) Creatinine 1.3 mg/dL (0.7-1.3) Estimated GFR (Cockcroft-Gault) 67.0 Glucose Level 138 mg/dL (70-99) Calcium Level 8.7 mg/dL (8.5-10.1) Total Bilirubin 0.4 mg/dL (0.2-1.0) Direct Bilirubin 0.1 mg/dL (0.0-0.2) Aspartate Amino Transf (AST/SGOT) 31 U/L (15-37) Alanine Aminotransferase (ALT/SGPT) 70 U/L (16-63) Alkaline Phosphatase 86 U/L (46-116) C-Reactive Protein, Quantitative 126.9 mg/L (0-3.3) Total Protein 6.0 g/dL (6.4-8.2) Albumin 2.6 g/dL (3.4-5.0) Procalcitonin 0.30 ng/mL (0.00-0.10) Glucose (Fingerstick) 148 mg/dL (70-99) Laboratory Tests Test 05/01/21 12:11 05/01/21 16:47 05/01/21 20:47 05/02/21 03:30 Glucose (Fingerstick) 206 mg/dL (70-99) 189 mg/dL (70-99) 170 mg/dL (70-99) White Blood Count 8.4 x10^3/uL (4.0-11.0) Red Blood Count 4.01 x10^6/uL (4.30-5.70) Hemoglobin 11.9 g/dL (13.0-17.5) Hematocrit 35.9 % (39.0-53.0) Mean Corpuscular Volume 89 fL (79-100) Mean Corpuscular Hemoglobin 30 pg (25-35) Mean Corpuscular Hemoglobin Concent 33 g/dL (31-37) Red Cell Distribution Width 13.5 % (11.5-14.5) Platelet Count 331 x10^3/uL (140-400) Neutrophils (%) (Auto) 73 % (31-73) Lymphocytes (%) (Auto) 13 % (24-48) Monocytes (%) (Auto) 12 % (0-9) Eosinophils (%) (Auto) 2 % (0-3) Basophils (%) (Auto) 0 % (0-3) Neutrophils # (Auto) 6.1 x10^3/uL (1.8-7.7) Lymphocytes # (Auto) 1.1 x10^3/uL (1.0-4.8) Monocytes # (Auto) 1.0 x10^3/uL (0.0-1.1) Eosinophils # (Auto) 0.1 x10^3/uL (0.0-0.7) Basophils # (Auto) 0.0 x10^3/uL (0.0-0.2) Sodium Level 143 mmol/L (136-145) Potassium Level 3.8 mmol/L (3.5-5.1) Chloride Level 104 mmol/L (98-107) Carbon Dioxide Level 31 mmol/L (21-32) Anion Gap 8 (6-14) Blood Urea Nitrogen 23 mg/dL (8-26) Creatinine 1.3 mg/dL (0.7-1.3) Estimated GFR (Cockcroft-Gault) 67.0 Glucose Level 138 mg/dL (70-99) Calcium Level 8.7 mg/dL (8.5-10.1) Total Bilirubin 0.4 mg/dL (0.2-1.0) Direct Bilirubin 0.1 mg/dL (0.0-0.2) Aspartate Amino Transf (AST/SGOT) 31 U/L (15-37) Alanine Aminotransferase (ALT/SGPT) 70 U/L (16-63) Alkaline Phosphatase 86 U/L (46-116) C-Reactive Protein, Quantitative 126.9 mg/L (0-3.3) Total Protein 6.0 g/dL (6.4-8.2) Albumin 2.6 g/dL (3.4-5.0) Procalcitonin 0.30 ng/mL (0.00-0.10) Test 05/02/21 07:22 Glucose (Fingerstick) 148 mg/dL (70-99) Medications Current Medications Midazolam HCl 100 ml @ 1 mls/hr CONT PRN IV SEE I/O RECORD Last administered on 04/29/21at 23:16; Start 04/29/21 at 05:00; Stop 05/02/21 at 07:42; Status DC Propofol 100 ml @ As Directed STK-MED ONCE IV ; Start 04/29/21 at 04:51; Stop 04/29/21 at 04:51; Status DC Furosemide (Lasix) 40 mg STK-MED ONCE .ROUTE ; Start 04/29/21 at 04:53; Stop 04/29/21 at 04:54; Status DC Nicardipine HCl 50 mg/Sodium Chloride 250 ml @ 25 mls/hr CONT PRN IV SEE I/O RECORD; Start 04/29/21 at 05:00 Nitroglycerin (Nitrostat) 0.4 mg STK-MED ONCE SL ; Start 04/29/21 at 04:57; Stop 04/29/21 at 04:57; Status DC Furosemide (Lasix) 40 mg 1X ONCE IVP Last administered on 04/29/21at 04:56; Start 04/29/21 at 05:30; Stop 04/29/21 at 05:31; Status DC Nitroglycerin (Nitrostat) 0.4 mg PRN Q5MIN PRN SL CHEST PAIN Last administered on 04/29/21at 04:58; Start 04/29/21 at 05:15 Nicardipine HCl 50 mg/Sodium Chloride 250 ml @ 25 mls/hr CONT PRN IV SEE I/O RECORD; Start 04/29/21 at 05:30; Status UNV Ondansetron HCl (Zofran) 4 mg PRN Q8HRS PRN IVP NAUSEA/VOMITING 1ST CHOICE; Start 04/29/21 at 05:45; Stop 04/30/21 at 05:44; Status DC Propofol (Diprivan) 200 mg 1X ONCE IV ; Start 04/29/21 at 06:30; Stop 04/29/21 at 06:31; Status DC Albuterol Sulfate (Ventolin Neb Soln) 2.5 mg PRN Q4HRS PRN NEB WHEEZING; Start 04/29/21 at 06:45 Atorvastatin Calcium (Lipitor) 80 mg HS PO Last administered on 05/01/21at 20:45; Start 04/29/21 at 21:00 Hydrochlorothiazide (Hydrodiuril) 12.5 mg [id number] PO Last administered on 05/02/21at 08:18; Start 04/29/21 at 12:00 Losartan Potassium (Cozaar) 25 mg DAILY PO Last administered on 05/01/21at 09:59; Start 04/29/21 at 09:00; Stop 05/01/21 at 16:21; Status DC Insulin Glargine (Lantus Syringe) 40 unit QHS SQ Last administered on 05/01/21at 20:47; Start 04/29/21 at 21:00 Propofol (Diprivan) 100 mg CONT PRN PRN IV SEDATION Last administered on 04/29/21at 05:15; Start 04/29/21 at 06:30; Stop 04/29/21 at 18:43; Status DC Fentanyl Citrate 30 ml @ 0 mls/hr CONT PRN PRN IV SEDATION/PAIN Last administered on 04/30/21at 06:42; Start 04/29/21 at 06:30; Stop 05/02/21 at 07:42; Status DC Furosemide (Lasix) 20 mg DAILY IVP ; Start 04/30/21 at 09:00; Stop 04/29/21 at 16:25; Status DC Insulin Human Lispro (HumaLOG) 15 units TIDWMEALS SQ ; Start 04/29/21 at 08:00; Status UNV Dextrose (Dextrose 50%-Water Syringe) 12.5 gm PRN Q15MIN PRN IV SEE COMMENTS; Start 04/29/21 at 06:45 Insulin Human Lispro (HumaLOG) 15 units TIDWMEALS SQ ; Start 04/29/21 at 08:00; Stop 04/29/21 at 10:57; Status DC Midazolam HCl (Versed) 5 mg STK-MED ONCE .ROUTE ; Start 04/29/21 at 07:01; Stop 04/29/21 at 07:01; Status DC Succinylcholine Chloride (Anectine) 200 mg STK-MED ONCE .ROUTE ; Start 04/29/21 at 07:01; Stop 04/29/21 at 07:02; Status DC Ketamine HCl (Ketamine) 500 mg STK-MED ONCE .ROUTE ; Start 04/29/21 at 07:02; Stop 04/29/21 at 07:02; Status DC Propofol 100 ml @ As Directed STK-MED ONCE IV ; Start 04/29/21 at 08:30; Stop 04/29/21 at 08:30; Status DC Insulin Human Lispro (HumaLOG) 0-7 UNITS TIDWMEALS SQ Last administered on 04/29/21at 11:49; Start 04/29/21 at 12:00; Stop 04/30/21 at 11:00; Status DC Dextrose (Dextrose 50%-Water Syringe) 12.5 gm PRN Q15MIN PRN IV SEE COMMENTS; Start 04/29/21 at 11:00; Status Cancel Furosemide (Lasix) 40 mg 1X ONCE IVP Last administered on 04/29/21at 12:48; Start 04/29/21 at 12:45; Stop 04/29/21 at 12:46; Status DC Enoxaparin Sodium (Lovenox 40mg Syringe) 40 mg Q24H SQ Last administered on 05/01/21at 12:25; Start 04/29/21 at 13:00 Furosemide (Lasix) 40 mg 1X ONCE IVP Last administered on 04/29/21at 13:06; Start 04/29/21 at 13:00; Stop 04/29/21 at 13:01; Status DC Furosemide (Lasix) 40 mg DAILY IVP Last administered on 05/02/21at 08:20; Start 04/30/21 at 09:00 Propofol 100 ml @ 3.66 mls/hr CONT PRN IV PER PROTOCOL Last administered on 04/30/21at 09:41; Start 04/29/21 at 18:45; Stop 05/02/21 at 07:43; Status DC Famotidine (Pepcid Vial) 20 mg QHS IVP Last administered on 05/01/21at 20:45; Start 04/29/21 at 21:00 Insulin Human Lispro (HumaLOG) 0-7 UNITS Q6HRS SQ Last administered on 05/01/21at 16:51; Start 04/30/21 at 12:00 Furosemide (Lasix) 40 mg 1X ONCE IVP Last administered on 04/30/21at 17:26; Start 04/30/21 at 16:45; Stop 04/30/21 at 16:46; Status DC Hydralazine HCl (Apresoline Inj) 10 mg PRN Q4HRS PRN IVP ELEVATED BP, SEE COMMENTS Last administered on 05/01/21at 04:10; Start 04/30/21 at 16:45 Acetaminophen (Tylenol) 650 mg PRN Q6HRS PRN PO MILD PAIN / TEMP > 100.3'F Last administered on 05/01/21at 16:41; Start 05/01/21 at 16:00 Furosemide (Lasix) 40 mg 1X ONCE IVP Last administered on 05/01/21at 16:44; Start 05/01/21 at 16:30; Stop 05/01/21 at 16:31; Status DC Potassium Chloride (Klor-Con) 20 meq 1X ONCE PO Last administered on 05/01/21 16:43; Start 05/01/21 at 16:30; Stop 05/01/21 at 16:31; Status DC Losartan Potassium (Cozaar) 50 mg DAILY PO Last administered on 05/02/21at 08:19; Start 05/02/21 at 09:00 Carvedilol (Coreg) 3.125 mg BIDWMEALS PO Last administered on 05/02/21at 08:18; Start 05/01/21 at 17:00 Acetaminophen/ Hydrocodone Bitart (Lortab 5/325) 1 tab PRN Q4HRS PRN PO MODERATE - SEVERE PAIN Last administered on 05/02/21at 08:19; Start 05/01/21 at 16:30 Zolpidem Tartrate (Ambien) 5 mg PRN QHS PRN PO INSOMNIA Last administered on 05/01/21at 20:45; Start 05/01/21 at 16:30 Ondansetron HCl (Zofran) 4 mg PRN Q8HRS PRN IVP NAUSEA/VOMITING; Start 05/01/21 at 16:30 Active Scripts Active Ventolin Hfa (Albuterol Sulfate) 8 Gm Hfa.aer.ad 1 Puff INH PRN Q4HRS PRN 30 Days Reported Multi Vitamin Daily (Multivitamin) 1 Each Tablet 1 Tab PO DAILY 30 Days Gabapentin 600 Mg Tablet 300 Mg PO DAILY Lantus Solostar (Insulin Glargine,Hum.rec.anlog) 100 Unit/1 Ml Insuln.pen 40 Unit SQ QHS Novolog (Insulin Aspart) 100 Unit/1 Ml Cartridge 15 Unit SQ TIDAC Atorvastatin Calcium 40 Mg Tablet 80 Mg PO HS Losartan Potassium 50 Mg Tablet 25 Mg PO DAILY Hydrochlorothiazide Tablet (Hydrochlorothiazide) 25 Mg Tablet 12.5 Mg PO BID Vitals/I & O Vital Sign - Last 24 Hours 05/01/21 05/01/21 05/01/21 05/01/21 09:00 09:59 10:00 11:00 Temp 98.0 98.0 Pulse 68 73 76 70 Resp 20 20 16 B/P (MAP) 163/68 (99) 163/68 166/74 (104) 161/63 (95) Pulse Ox 99 98 96 O2 Delivery Nasal Cannula Nasal Cannula Nasal Cannula O2 Flow Rate 3.0 3.0 3.0 05/01/21 05/01/21 05/01/21 05/01/21 12:58 15:00 16:43 19:07 Temp 98.7 99.2 98.7 99.2 Pulse 70 70 77 Resp 16 16 B/P (MAP) 147/63 (91) 161/63 127/58 (81) Pulse Ox 95 97 O2 Delivery Nasal Cannula Nasal Cannula Nasal Cannula O2 Flow Rate 3.0 3.0 3.0 05/01/21 05/01/21 05/01/21 05/02/21 19:30 20:46 22:35 00:57 Temp 98.9 98.9 Pulse 73 Resp 20 16 B/P (MAP) 121/51 (74) Pulse Ox 99 98 O2 Delivery Nasal Cannula Nasal Cannula Nasal Cannula Nasal Cannula O2 Flow Rate 3.0 3.0 3.0 3.0 05/02/21 05/02/21 05/02/21 05/02/21 02:31 07:00 08:18 08:19 Temp 99.4 98.0 99.4 98.0 Pulse 70 70 70 70 Resp 18 20 B/P (MAP) 148/58 (88) 152/63 (92) 152/63 152/63 Pulse Ox 98 96 O2 Delivery Nasal Cannula Nasal Cannula O2 Flow Rate 2.0 2.0 05/02/21 08:19 Resp 18 Pulse Ox 96 O2 Delivery Nasal Cannula O2 Flow Rate 2.0 Intake and Output 05/01/21 05/01/21 05/02/21 15:00 23:00 07:00 Intake Total 240 ml 100 ml 200 ml Output Total 1700 ml 750 ml 775 ml Balance -1460 ml -650 ml -575 ml Justicifation of Admission Dx: Justifications for Admission: Justification of Admission Dx: Yes CHF: Hemodynamic Instability POLI ARSHAD MD May 02, 2021 08:54
[2021-05-02] MEDS ORDERED: LOSARTAN POTASSIUM 50 MG TABLET. PO SCH (09:00)
--- NOTE | 2021-05-02 09:49 | PDOC ---
PULMONARY PROGRESS NOTES DATE: 05/02/21 TIME: 09:46 Subjective Denies any shortness of breath. Extubated 04/30/2021 Doing well on nasal cannula Vitals Vital Signs Date Time Temp Pulse Resp B/P (MAP) Pulse Ox O2 Delivery O2 Flow Rate FiO2 05/02/21 08:49 96 Nasal Cannula 2.0 05/02/21 08:19 18 05/02/21 08:19 70 152/63 05/02/21 07:00 98.0 98.0 General: Alert, No acute distress Lungs: Clear Cardiovascular: S1 Abdomen: Soft Extremities: Other (1+ edema) Skin: Warm Labs Laboratory Tests Test 04/30/21 12:09 04/30/21 13:15 04/30/21 18:31 04/30/21 20:55 O2 Saturation 95 % (92-99) Arterial Blood pH 7.44 (7.35-7.45) Arterial Blood pCO2 at Patient Temp 45 mmHg (35-46) Arterial Blood pO2 at Patient Temp 73 mmHg (65-108) Arterial Blood HCO3 30 mmol/L (21-28) Arterial Blood Base Excess 5 mmol/L (-3-3) FiO2 Vent/cpap 10-5 40% Glucose (Fingerstick) 221 mg/dL (70-99) 218 mg/dL (70-99) 184 mg/dL (70-99) Test 05/01/21 05:00 05/01/21 12:11 05/01/21 16:47 05/01/21 20:47 White Blood Count 10.4 x10^3/uL (4.0-11.0) Red Blood Count 4.12 x10^6/uL (4.30-5.70) Hemoglobin 12.2 g/dL (13.0-17.5) Hematocrit 36.8 % (39.0-53.0) Mean Corpuscular Volume 89 fL (79-100) Mean Corpuscular Hemoglobin 30 pg (25-35) Mean Corpuscular Hemoglobin Concent 33 g/dL (31-37) Red Cell Distribution Width 13.8 % (11.5-14.5) Platelet Count 312 x10^3/uL (140-400) Neutrophils (%) (Auto) 73 % (31-73) Lymphocytes (%) (Auto) 13 % (24-48) Monocytes (%) (Auto) 14 % (0-9) Eosinophils (%) (Auto) 0 % (0-3) Basophils (%) (Auto) 0 % (0-3) Neutrophils # (Auto) 7.5 x10^3/uL (1.8-7.7) Lymphocytes # (Auto) 1.3 x10^3/uL (1.0-4.8) Monocytes # (Auto) 1.5 x10^3/uL (0.0-1.1) Eosinophils # (Auto) 0.0 x10^3/uL (0.0-0.7) Basophils # (Auto) 0.0 x10^3/uL (0.0-0.2) Sodium Level 144 mmol/L (136-145) Potassium Level 3.9 mmol/L (3.5-5.1) Chloride Level 106 mmol/L (98-107) Carbon Dioxide Level 30 mmol/L (21-32) Anion Gap 8 (6-14) Blood Urea Nitrogen 23 mg/dL (8-26) Creatinine 1.2 mg/dL (0.7-1.3) Estimated GFR (Cockcroft-Gault) 73.5 Glucose Level 163 mg/dL (70-99) Calcium Level 8.9 mg/dL (8.5-10.1) Glucose (Fingerstick) 206 mg/dL (70-99) 189 mg/dL (70-99) 170 mg/dL (70-99) Test 05/02/21 03:30 05/02/21 07:22 White Blood Count 8.4 x10^3/uL (4.0-11.0) Red Blood Count 4.01 x10^6/uL (4.30-5.70) Hemoglobin 11.9 g/dL (13.0-17.5) Hematocrit 35.9 % (39.0-53.0) Mean Corpuscular Volume 89 fL (79-100) Mean Corpuscular Hemoglobin 30 pg (25-35) Mean Corpuscular Hemoglobin Concent 33 g/dL (31-37) Red Cell Distribution Width 13.5 % (11.5-14.5) Platelet Count 331 x10^3/uL (140-400) Neutrophils (%) (Auto) 73 % (31-73) Lymphocytes (%) (Auto) 13 % (24-48) Monocytes (%) (Auto) 12 % (0-9) Eosinophils (%) (Auto) 2 % (0-3) Basophils (%) (Auto) 0 % (0-3) Neutrophils # (Auto) 6.1 x10^3/uL (1.8-7.7) Lymphocytes # (Auto) 1.1 x10^3/uL (1.0-4.8) Monocytes # (Auto) 1.0 x10^3/uL (0.0-1.1) Eosinophils # (Auto) 0.1 x10^3/uL (0.0-0.7) Basophils # (Auto) 0.0 x10^3/uL (0.0-0.2) Sodium Level 143 mmol/L (136-145) Potassium Level 3.8 mmol/L (3.5-5.1) Chloride Level 104 mmol/L (98-107) Carbon Dioxide Level 31 mmol/L (21-32) Anion Gap 8 (6-14) Blood Urea Nitrogen 23 mg/dL (8-26) Creatinine 1.3 mg/dL (0.7-1.3) Estimated GFR (Cockcroft-Gault) 67.0 Glucose Level 138 mg/dL (70-99) Calcium Level 8.7 mg/dL (8.5-10.1) Total Bilirubin 0.4 mg/dL (0.2-1.0) Direct Bilirubin 0.1 mg/dL (0.0-0.2) Aspartate Amino Transf (AST/SGOT) 31 U/L (15-37) Alanine Aminotransferase (ALT/SGPT) 70 U/L (16-63) Alkaline Phosphatase 86 U/L (46-116) C-Reactive Protein, Quantitative 126.9 mg/L (0-3.3) Total Protein 6.0 g/dL (6.4-8.2) Albumin 2.6 g/dL (3.4-5.0) Procalcitonin 0.30 ng/mL (0.00-0.10) Glucose (Fingerstick) 148 mg/dL (70-99) Laboratory Tests Test 05/01/21 12:11 05/01/21 16:47 05/01/21 20:47 05/02/21 03:30 Glucose (Fingerstick) 206 mg/dL (70-99) 189 mg/dL (70-99) 170 mg/dL (70-99) White Blood Count 8.4 x10^3/uL (4.0-11.0) Red Blood Count 4.01 x10^6/uL (4.30-5.70) Hemoglobin 11.9 g/dL (13.0-17.5) Hematocrit 35.9 % (39.0-53.0) Mean Corpuscular Volume 89 fL (79-100) Mean Corpuscular Hemoglobin 30 pg (25-35) Mean Corpuscular Hemoglobin Concent 33 g/dL (31-37) Red Cell Distribution Width 13.5 % (11.5-14.5) Platelet Count 331 x10^3/uL (140-400) Neutrophils (%) (Auto) 73 % (31-73) Lymphocytes (%) (Auto) 13 % (24-48) Monocytes (%) (Auto) 12 % (0-9) Eosinophils (%) (Auto) 2 % (0-3) Basophils (%) (Auto) 0 % (0-3) Neutrophils # (Auto) 6.1 x10^3/uL (1.8-7.7) Lymphocytes # (Auto) 1.1 x10^3/uL (1.0-4.8) Monocytes # (Auto) 1.0 x10^3/uL (0.0-1.1) Eosinophils # (Auto) 0.1 x10^3/uL (0.0-0.7) Basophils # (Auto) 0.0 x10^3/uL (0.0-0.2) Sodium Level 143 mmol/L (136-145) Potassium Level 3.8 mmol/L (3.5-5.1) Chloride Level 104 mmol/L (98-107) Carbon Dioxide Level 31 mmol/L (21-32) Anion Gap 8 (6-14) Blood Urea Nitrogen 23 mg/dL (8-26) Creatinine 1.3 mg/dL (0.7-1.3) Estimated GFR (Cockcroft-Gault) 67.0 Glucose Level 138 mg/dL (70-99) Calcium Level 8.7 mg/dL (8.5-10.1) Total Bilirubin 0.4 mg/dL (0.2-1.0) Direct Bilirubin 0.1 mg/dL (0.0-0.2) Aspartate Amino Transf (AST/SGOT) 31 U/L (15-37) Alanine Aminotransferase (ALT/SGPT) 70 U/L (16-63) Alkaline Phosphatase 86 U/L (46-116) C-Reactive Protein, Quantitative 126.9 mg/L (0-3.3) Total Protein 6.0 g/dL (6.4-8.2) Albumin 2.6 g/dL (3.4-5.0) Procalcitonin 0.30 ng/mL (0.00-0.10) Test 05/02/21 07:22 Glucose (Fingerstick) 148 mg/dL (70-99) Medications Active Scripts Medications Dose Route/Sig Max Daily Dose Days Date Category Ventolin Hfa (Albuterol Sulfate) 8 Gm Hfa.aer.ad 1 Puff INH PRN Q4HRS PRN 30 02/04/21 Rx Multi Vitamin Daily (Multivitamin) 1 Each Tablet 1 Tab PO DAILY 30 02/04/21 Reported Gabapentin 600 Mg Tablet 300 Mg PO DAILY 02/04/21 Reported Lantus Solostar (Insulin Glargine,Hum.rec.anlog) 100 Unit/1 Ml Insuln.pen 40 Unit SQ QHS 02/04/21 Reported Novolog (Insulin Aspart) 100 Unit/1 Ml Cartridge 15 Unit SQ TIDAC 02/04/21 Reported Atorvastatin Calcium 40 Mg Tablet 80 Mg PO HS 02/04/21 Reported Losartan Potassium 50 Mg Tablet 25 Mg PO DAILY 02/04/21 Reported Hydrochlorothiazide Tablet (Hydrochlorothiazide) 25 Mg Tablet 12.5 Mg PO BID 02/04/21 Reported Comments Chest x-ray 04/30/2021 Mild improvement in CHF Impression . 1. Acute hypercapnic respiratory failure secondary to acute flash pulmonary edema from hypertensive urgency. Extubated 04/30 2. Hypertensive urgency triggering diastolic congestive heart failure. 3. Abnormal chest x-ray consistent with congestive heart failure. 4. COVID-19 negative. 5. History of addictions, but urine drug screen negative. 6. Abnormal AST and ALT related to hypoperfusion. Plan . 1. Oxygen status has improved. Continue nasal cannula. 2. Follow cardiology recommendations. 3. Follow chest x-ray as needed. 4. Diuresis. 5. Follow up chest x-ray today 6. DVT prophylaxis and stress ulcer prophylaxis. 7. Enteral nutrition. 8. Discussed with MICHELLE QUINONES MD May 02, 2021 09:49
[2021-05-02 10:41] VITALS: BP 148/62
--- NOTE | 2021-05-02 11:11 | PDOC ---
COOPER MILLARD ENVIRONMENTAL REMEDIATION CONSULTANT 05/02/21 1111: CARDIO Progress Notes Date and Time Date of Service 05/02/21 Time of Evaluation 1115 Subjective Subjective: No Chest Pain, No shortness of breath, No Palpitations, Other (breathing improved ) Vitals Vitals Vital Signs Date Time Temp Pulse Resp B/P (MAP) Pulse Ox O2 Delivery O2 Flow Rate FiO2 05/02/21 10:41 97.8 70 20 148/62 (90) 100 Nasal Cannula 3.5 97.8 Weight Weight [ ] Input and Output Intake and Output Intake and Output 05/02/21 07:00 Intake Total 540 ml Output Total 3225 ml Balance -2685 ml Intake Oral 540 ml Output Urine Total 3225 ml Laboratory Labs Laboratory Tests Test 05/01/21 12:11 05/01/21 16:47 05/01/21 20:47 05/02/21 03:30 Glucose (Fingerstick) 206 mg/dL (70-99) 189 mg/dL (70-99) 170 mg/dL (70-99) White Blood Count 8.4 x10^3/uL (4.0-11.0) Red Blood Count 4.01 x10^6/uL (4.30-5.70) Hemoglobin 11.9 g/dL (13.0-17.5) Hematocrit 35.9 % (39.0-53.0) Mean Corpuscular Volume 89 fL (79-100) Mean Corpuscular Hemoglobin 30 pg (25-35) Mean Corpuscular Hemoglobin Concent 33 g/dL (31-37) Red Cell Distribution Width 13.5 % (11.5-14.5) Platelet Count 331 x10^3/uL (140-400) Neutrophils (%) (Auto) 73 % (31-73) Lymphocytes (%) (Auto) 13 % (24-48) Monocytes (%) (Auto) 12 % (0-9) Eosinophils (%) (Auto) 2 % (0-3) Basophils (%) (Auto) 0 % (0-3) Neutrophils # (Auto) 6.1 x10^3/uL (1.8-7.7) Lymphocytes # (Auto) 1.1 x10^3/uL (1.0-4.8) Monocytes # (Auto) 1.0 x10^3/uL (0.0-1.1) Eosinophils # (Auto) 0.1 x10^3/uL (0.0-0.7) Basophils # (Auto) 0.0 x10^3/uL (0.0-0.2) Sodium Level 143 mmol/L (136-145) Potassium Level 3.8 mmol/L (3.5-5.1) Chloride Level 104 mmol/L (98-107) Carbon Dioxide Level 31 mmol/L (21-32) Anion Gap 8 (6-14) Blood Urea Nitrogen 23 mg/dL (8-26) Creatinine 1.3 mg/dL (0.7-1.3) Estimated GFR (Cockcroft-Gault) 67.0 Glucose Level 138 mg/dL (70-99) Calcium Level 8.7 mg/dL (8.5-10.1) Total Bilirubin 0.4 mg/dL (0.2-1.0) Direct Bilirubin 0.1 mg/dL (0.0-0.2) Aspartate Amino Transf (AST/SGOT) 31 U/L (15-37) Alanine Aminotransferase (ALT/SGPT) 70 U/L (16-63) Alkaline Phosphatase 86 U/L (46-116) C-Reactive Protein, Quantitative 126.9 mg/L (0-3.3) Total Protein 6.0 g/dL (6.4-8.2) Albumin 2.6 g/dL (3.4-5.0) Procalcitonin 0.30 ng/mL (0.00-0.10) Test 05/02/21 07:22 Glucose (Fingerstick) 148 mg/dL (70-99) Physical Exam HEENT: Neck Supple W Full Motion Chest: Symmetric LUNGS: Other (diminished bases) Heart: RRR Abdomen: Soft N/T Extremities: No Edema Neurology: alert, oriented, follow commands Assessment Assessment 1. Acute on chronic respiratory failure with CHF, ? PNA; s/p extubation. on NC 2. Acute on chronic diastolic CHF in setting of hypertensive urgency. s/p IV diuresis. Echo with preserved LV systolic function 3. Hypertensive urgency; remains labile 4. Hyperlipidemia; statin 5. Diabetes, II 6. Elevated LFTs 7. H/o substance abuse; UDS negative Recommendations Diuresis; Will need Lasix therapy upon discharge BP control; increase Coreg 2Gm Na diet as able ([employer] prepares meals), 2000cc FR Consider outpatient ischemic evaluation; patient will need to follow up through the [place] [facility] Justicifation of Admission Dx: Justifications for Admission: Justification of Admission Dx: Yes CHF: Hemodynamic Instability WELLINGTON ASHRAF MD 05/02/211908: CARDIO Progress Notes Plan Plan The patient was seen and interviewed as well as examined at the bedside. The art was reviewed. The case was discussed. Agree with the plan of care. COOPER MILLARD APRN May 02, 2021 11:11 WELLINGTON ASHRAF MD May 02, 2021 19:09
[2021-05-02] MEDS: ENOXAPARIN 40 MG/0.4 ML SYRINGE. SQ SCH (11:12)
[2021-05-02] MEDS: INSULIN LISPRO 300 UNITS/3 ML VIAL. SQ SCH ×2 (11:15→17:20)
--- NOTE | 2021-05-02 11:48 | RAD ---
EXAM: Chest, single view. HISTORY: Congestive heart failure. COMPARISON: 04/30/2021. FINDINGS: A frontal view of the chest is obtained. There has been near complete resolution of previou sly demonstrated right lower lobe infiltrate and a suspected small right pleural effusion. There is s table mild diffuse interstitial prominence. There is a stable cardiac silhouette. There has been inte rval removal of an endotracheal tube and nasogastric tube. There is no pneumothorax. IMPRESSION: 1. Near complete resolution of right lower lobe infiltrate. 2. Stable mild diffuse interstitial prominence. Electronically signed by: Maya Fernandez MD (05/02/2021 11:45 AM) [id number]
[2021-05-02] MEDS ORDERED: CARVEDILOL 6.25 MG TABLET. PO ONE (14:00)
[2021-05-02] MEDS ORDERED: LOSARTAN POTASSIUM 50 MG TABLET. PO ONE (14:15)
[2021-05-02 15:00] VITALS: BP 149/79
[2021-05-02] MEDS: CARVEDILOL 12.5 MG TABLET. PO SCH (17:16)
[2021-05-02 19:27] VITALS: BP 132/63
[2021-05-02 22:30] VITALS: BP 138/55
[2021-05-02] MEDS: ATORVASTATIN CALCIUM 40 MG TABLET. PO SCH (22:43)
[2021-05-02] MEDS: FAMOTIDINE 20 MG/2 ML VIAL IVP SCH (22:43)
[2021-05-02] MEDS: ACETAMINOPHEN 325 MG TABLET. PO PRN (22:43)
[2021-05-02] MEDS: INSULIN GLARGINE SYRINGE. SQ SCH (22:50)
[2021-05-03 03:40] VITALS: BP 112/53
[2021-05-03 04:38] LABS: BASO % 0 % (0-3); EOS # 0.2 x10^3/uL (0.0-0.7); EOS % 3 % (0-3); HEMATOCRIT 35.6 % (39.0-53.0); HEMOGLOBIN 11.9 g/dL (13.0-17.5); LYMPH # 1.4 x10^3/uL (1.0-4.8); LYMPH % 20 % (24-48); MEAN CORPUSCULAR HEMOGLOBIN 30 pg (25-35); MEAN CORPUSCULAR HGB CONC 33 g/dL (31-37); MEAN CORPUSCULAR VOLUME 89 fL (79-100); MONO % 14 % (0-9); NEUT # 4.5 x10^3/uL (1.8-7.7); NEUT % 63 % (31-73); PLATELET COUNT 359 x10^3/uL (140-400); RED CELL DISTRIBUTION WIDTH 13.5 % (11.5-14.5); WHITE BLOOD COUNT 7.1 x10^3/uL (4.0-11.0)
[2021-05-03 04:58] LABS: CREATININE 1.4 mg/dL (0.7-1.3); GFR 61.5; POTASSIUM 3.8 mmol/L (3.5-5.1)
[2021-05-03 07:00] VITALS: BP 151/69
--- NOTE | 2021-05-03 07:30 | PDOC ---
PROGRESS NOTES Date of Service: DATE: 05/03/21 TIME: 07:29 Chief Complaint Chief Complaint Acute respiratory failure with hypoxia Acute CHF Flash pulmonary edema Hypertensive emergency MICHAEL due to vasomotor nephropathy Transaminitis DM2 with hyperglycemia Severe malnutrition COVID-19 PUI Plan: Patient admitted to ICU on Cardene drip Consultation placed to cardiology and pulmonology We will continue to diurese patient with Lasix daily; monitor daily I's & O's. Echocardiogram has been ordered pending COVID-19 status. We will resume what home blood pressure medications we can at this time and wean off Cardene drip as tolerated Basal insulin COVID-19 pending FEN - NPO PPX - Lovenox FULL CODE Dispo - inpatient for above Unable to name surrogate decision-maker at this time History of Present Illness History of Present Illness Patient 66-year-old male past medical history DM2, HTN, presents to the ED from [facility] with complaints of shortness of breath. Much history is obtained through chart review due to clinical condition. Upon arrival by EMS she was saturating 94% on room air. He was diaphoretic and tachypneic, and subsequently placed on BiPAP. Labs on admission showed creatinine 1.4, CBG 333, AST 184, ALT 185, alk phos 153, BNP 1190, albumin 2.9. Blood pressure in the ED noted to be significantly elevated at 242/113 mmHg. He received Lasix and was placed on Cardene drip due to hypertensive emergency. Decision was made in ED to intubate patient due to worsening respiratory failure. Will be admitted to ICU for further medical management. 04/30/2021: Low-grade fever overnight, T-max 100.1 F. On vent with FiO2 40%, PEEP 5. Will follow cardiology recommendations. Continue diuresis with close monitoring of kidney function. 1940 mL urine output overnight. Echocardiogram showed normal left ventricular systolic function with a EF 55%; mild inferior wall hypokinesia, recommended outpatient ischemic evaluation. Blood pressure stable. Ventilator management per pulmonology; likely pursue CPAP trial the next 24 hours. Critical care time 30 minutes spent reviewing charts, reviewing imaging, reviewing labs, and discussion with RN. 05/01/2021: Febrile overnight, T-max 100.6 F. Extubated yesterday, now breathing on 3 L nasal cannula. 2490 mL urine output overnight. At home he was breathing on 3-4 L nasal cannula at baseline. States he has been compliant with his home Lasix but did not feel that this medication was keeping fluid off of him. Discussed nonpharmacological ways of addressing his CHF; sodium and fluid restriction. States he is swallowing well. We will continue to follow cardiology recommendations; diuresis with monitoring of renal function and out patient ischemic evaluation. Chest x-ray yesterday showed increased right lower lobe infiltrate. Will obtain CRP and procalcitonin to help rule out any pulmonary infection. Critical care time 30 minutes spent reviewing charts, reviewing imaging, reviewing labs, and discussion with RN. 05/02/2021: Acute on chronic diastolic CHF in setting of hypertensive urgency. s/p IV diuresis. Echo with preserved LV systolic function Near complete resolution of right lower lobe infiltrate. CXR 05-02 Acute hypercapnic respiratory failure secondary to acute flash pulmonary edema from hypertensive urgency. Extubated 04/30 Hypertensive urgency triggering diastolic congestive heart failure. Febrile 04-30 T-max 100.6 F. Extubated 04-30 , now breathing on 3 L At home 3-4 L nasal cannula at baseline. States he has been compliant with his home Lasix but did not feel that this medication was keeping fluid off of him. Discussed nonpharmacological ways of addressing his CHF; sodium and fluid restriction. swallowing well. We will continue to follow cardiology recommendations; diuresis with monitoring of renal function outpatient ischemic evaluation. Chest x-ray 04-30 showed increased right lower lobe infiltrate. CRP and procalcitonin to help rule out any pulmonary infection. CRP 126.9 discussion with RN. A1C 10.1 05/03/2021: Acute on chronic diastolic CHF in setting of hypertensive urgency. s/p IV diuresis. Echo with preserved LV systolic function Near complete resolution of right lower lobe infiltrate. CXR 05-02 Acute hypercapnic respiratory failure secondary to acute flash pulmonary edema from hypertensive urgency. Extubated 04/30 Hypertensive urgency triggering diastolic congestive heart failure. Febrile 04-30 T-max 100.6 F. Extubated 04-30 , now breathing on 3 L At home 3-4 L nasal cannula at baseline. States he has been compliant with his home Lasix but did not feel that this me dication was keeping fluid off of him. Discussed nonpharmacological ways of addressing his CHF; sodium and fluid restriction. swallowing well. We will continue to follow cardiology recommendations; diuresis with monitoring of renal function outpatient ischemic evaluation. Chest x-ray 04-30 showed increased right lower lobe infiltrate. CRP and procalcitonin to help rule out any pulmonary infection. CRP 126.9 discussion with RN. A1C 10.1 HOME WITH HOME HEALTH TODAY D/C PLANNING 34 MIN Vitals Vitals Vital Signs Date Time Temp Pulse Resp B/P (MAP) Pulse Ox O2 Delivery O2 Flow Rate FiO2 05/03/21 03:40 99.2 68 18 112/53 (72) 98 Nasal Cannula 3.0 99.2 Physical Exam General: Alert, Oriented X3, Cooperative, No acute distress, Other Heart: Regular rate, No murmurs Lungs: Clear Abdomen: Normal bowel sounds, Soft, No tenderness, No hepatosplenomegaly, Other (obese) Extremities: No clubbing, No cyanosis, Other (trace bilateral LE edema ) Skin: No rashes, No significant lesion Labs LABS Laboratory Tests Test 05/02/21 11:11 05/02/21 16:06 05/02/21 20:53 05/03/21 04:15 Glucose (Fingerstick) 220 mg/dL (70-99) 169 mg/dL (70-99) 195 mg/dL (70-99) White Blood Count 7.1 x10^3/uL (4.0-11.0) Red Blood Count 4.00 x10^6/uL (4.30-5.70) Hemoglobin 11.9 g/dL (13.0-17.5) Hematocrit 35.6 % (39.0-53.0) Mean Corpuscular Volume 89 fL (79-100) Mean Corpuscular Hemoglobin 30 pg (25-35) Mean Corpuscular Hemoglobin Concent 33 g/dL (31-37) Red Cell Distribution Width 13.5 % (11.5-14.5) Platelet Count 359 x10^3/uL (140-400) Neutrophils (%) (Auto) 63 % (31-73) Lymphocytes (%) (Auto) 20 % (24-48) Monocytes (%) (Auto) 14 % (0-9) Eosinophils (%) (Auto) 3 % (0-3) Basophils (%) (Auto) 0 % (0-3) Neutrophils # (Auto) 4.5 x10^3/uL (1.8-7.7) Lymphocytes # (Auto) 1.4 x10^3/uL (1.0-4.8) Monocytes # (Auto) 1.0 x10^3/uL (0.0-1.1) Eosinophils # (Auto) 0.2 x10^3/uL (0.0-0.7) Basophils # (Auto) 0.0 x10^3/uL (0.0-0.2) Sodium Level 138 mmol/L (136-145) Potassium Level 3.8 mmol/L (3.5-5.1) Chloride Level 100 mmol/L (98-107) Carbon Dioxide Level 30 mmol/L (21-32) Anion Gap 8 (6-14) Blood Urea Nitrogen 28 mg/dL (8-26) Creatinine 1.4 mg/dL (0.7-1.3) Estimated GFR (Cockcroft-Gault) 61.5 Glucose Level 240 mg/dL (70-99) Calcium Level 9.0 mg/dL (8.5-10.1) Assessment and Plan Assessmemt and Plan Problems Medical Problems: (1) Flash pulmonary edema Status: Acute (2) Hypertensive emergency Status: Acute (3) Respiratory failure Status: Acute Comment Review of Relevant I have reviewed the following items fabricio (where applicable) has been applied. Labs Laboratory Tests Test 05/01/21 12:11 05/01/21 16:47 05/01/21 20:47 05/02/21 03:30 Glucose (Fingerstick) 206 mg/dL (70-99) 189 mg/dL (70-99) 170 mg/dL (70-99) White Blood Count 8.4 x10^3/uL (4.0-11.0) Red Blood Count 4.01 x10^6/uL (4.30-5.70) Hemoglobin 11.9 g/dL (13.0-17.5) Hematocrit 35.9 % (39.0-53.0) Mean Corpuscular Volume 89 fL (79-100) Mean Corpuscular Hemoglobin 30 pg (25-35) Mean Corpuscular Hemoglobin Concent 33 g/dL (31-37) Red Cell Distribution Width 13.5 % (11.5-14.5) Platelet Count 331 x10^3/uL (140-400) Neutrophils (%) (Auto) 73 % (31-73) Lymphocytes (%) (Auto) 13 % (24-48) Monocytes (%) (Auto) 12 % (0-9) Eosinophils (%) (Auto) 2 % (0-3) Basophils (%) (Auto) 0 % (0-3) Neutrophils # (Auto) 6.1 x10^3/uL (1.8-7.7) Lymphocytes # (Auto) 1.1 x10^3/uL (1.0-4.8) Monocytes # (Auto) 1.0 x10^3/uL (0.0-1.1) Eosinophils # (Auto) 0.1 x10^3/uL (0.0-0.7) Basophils # (Auto) 0.0 x10^3/uL (0.0-0.2) Sodium Level 143 mmol/L (136-145) Potassium Level 3.8 mmol/L (3.5-5.1) Chloride Level 104 mmol/L (98-107) Carbon Dioxide Level 31 mmol/L (21-32) Anion Gap 8 (6-14) Blood Urea Nitrogen 23 mg/dL (8-26) Creatinine 1.3 mg/dL (0.7-1.3) Estimated GFR (Cockcroft-Gault) 67.0 Glucose Level 138 mg/dL (70-99) Calcium Level 8.7 mg/dL (8.5-10.1) Total Bilirubin 0.4 mg/dL (0.2-1.0) Direct Bilirubin 0.1 mg/dL (0.0-0.2) Aspartate Amino Transf (AST/SGOT) 31 U/L (15-37) Alanine Aminotransferase (ALT/SGPT) 70 U/L (16-63) Alkaline Phosphatase 86 U/L (46-116) C-Reactive Protein, Quantitative 126.9 mg/L (0-3.3) Total Protein 6.0 g/dL (6.4-8.2) Albumin 2.6 g/dL (3.4-5.0) Procalcitonin 0.30 ng/mL (0.00-0.10) Test 05/02/21 07:22 05/02/21 11:11 05/02/21 16:06 05/02/21 20:53 Glucose (Fingerstick) 148 mg/dL (70-99) 220 mg/dL (70-99) 169 mg/dL (70-99) 195 mg/dL (70-99) Test 05/03/21 04:15 White Blood Count 7.1 x10^3/uL (4.0-11.0) Red Blood Count 4.00 x10^6/uL (4.30-5.70) Hemoglobin 11.9 g/dL (13.0-17.5) Hematocrit 35.6 % (39.0-53.0) Mean Corpuscular Volume 89 fL (79-100) Mean Corpuscular Hemoglobin 30 pg (25-35) Mean Corpuscular Hemoglobin Concent 33 g/dL (31-37) Red Cell Distribution Width 13.5 % (11.5-14.5) Platelet Count 359 x10^3/uL (140-400) Neutrophils (%) (Auto) 63 % (31-73) Lymphocytes (%) (Auto) 20 % (24-48) Monocytes (%) (Auto) 14 % (0-9) Eosinophils (%) (Auto) 3 % (0-3) Basophils (%) (Auto) 0 % (0-3) Neutrophils # (Auto) 4.5 x10^3/uL (1.8-7.7) Lymphocytes # (Auto) 1.4 x10^3/uL (1.0-4.8) Monocytes # (Auto) 1.0 x10^3/uL (0.0-1.1) Eosinophils # (Auto) 0.2 x10^3/uL (0.0-0.7) Basophils # (Auto) 0.0 x10^3/uL (0.0-0.2) Sodium Level 138 mmol/L (136-145) Potassium Level 3.8 mmol/L (3.5-5.1) Chloride Level 100 mmol/L (98-107) Carbon Dioxide Level 30 mmol/L (21-32) Anion Gap 8 (6-14) Blood Urea Nitrogen 28 mg/dL (8-26) Creatinine 1.4 mg/dL (0.7-1.3) Estimated GFR (Cockcroft-Gault) 61.5 Glucose Level 240 mg/dL (70-99) Calcium Level 9.0 mg/dL (8.5-10.1) Laboratory Tests Test 05/02/21 11:11 05/02/21 16:06 05/02/21 20:53 05/03/21 04:15 Glucose (Fingerstick) 220 mg/dL (70-99) 169 mg/dL (70-99) 195 mg/dL (70-99) White Blood Count 7.1 x10^3/uL (4.0-11.0) Red Blood Count 4.00 x10^6/uL (4.30-5.70) Hemoglobin 11.9 g/dL (13.0-17.5) Hematocrit 35.6 % (39.0-53.0) Mean Corpuscular Volume 89 fL (79-100) Mean Corpuscular Hemoglobin 30 pg (25-35) Mean Corpuscular Hemoglobin Concent 33 g/dL (31-37) Red Cell Distribution Width 13.5 % (11.5-14.5) Platelet Count 359 x10^3/uL (140-400) Neutrophils (%) (Auto) 63 % (31-73) Lymphocytes (%) (Auto) 20 % (24-48) Monocytes (%) (Auto) 14 % (0-9) Eosinophils (%) (Auto) 3 % (0-3) Basophils (%) (Auto) 0 % (0-3) Neutrophils # (Auto) 4.5 x10^3/uL (1.8-7.7) Lymphocytes # (Auto) 1.4 x10^3/uL (1.0-4.8) Monocytes # (Auto) 1.0 x10^3/uL (0.0-1.1) Eosinophils # (Auto) 0.2 x10^3/uL (0.0-0.7) Basophils # (Auto) 0.0 x10^3/uL (0.0-0.2) Sodium Level 138 mmol/L (136-145) Potassium Level 3.8 mmol/L (3.5-5.1) Chloride Level 100 mmol/L (98-107) Carbon Dioxide Level 30 mmol/L (21-32) Anion Gap 8 (6-14) Blood Urea Nitrogen 28 mg/dL (8-26) Creatinine 1.4 mg/dL (0.7-1.3) Estimated GFR (Cockcroft-Gault) 61.5 Glucose Level 240 mg/dL (70-99) Calcium Level 9.0 mg/dL (8.5-10.1) Medications Current Medications Midazolam HCl 100 ml @ 1 mls/hr CONT PRN IV SEE I/O RECORD Last administered on 04/29/21at 23:16; Start 04/29/21 at 05:00; Stop 05/02/21 at 07:42; Status DC Propofol 100 ml @ As Directed STK-MED ONCE IV ; Start 04/29/21 at 04:51; Stop 04/29/21 at 04:51; Status DC Furosemide (Lasix) 40 mg STK-MED ONCE .ROUTE ; Start 04/29/21 at 04:53; Stop 04/29/21 at 04:54; Status DC Nicardipine HCl 50 mg/Sodium Chloride 250 ml @ 25 mls/hr CONT PRN IV SEE I/O RECORD; Start 04/29/21 at 05:00 Nitroglycerin (Nitrostat) 0.4 mg STK-MED ONCE SL ; Start 04/29/21 at 04:57; Stop 04/29/21 at 04:57; Status DC Furosemide (Lasix) 40 mg 1X ONCE IVP Last administered on 04/29/21at 04:56; Start 04/29/21 at 05:30; Stop 04/29/21 at 05:31; Status DC Nitroglycerin (Nitrostat) 0.4 mg PRN Q5MIN PRN SL CHEST PAIN Last administered on 04/29/21at 04:58; Start 04/29/21 at 05:15 Nicardipine HCl 50 mg/Sodium Chloride 250 ml @ 25 mls/hr CONT PRN IV SEE I/O RECORD; Start 04/29/21 at 05:30; Status UNV Ondansetron HCl (Zofran) 4 mg PRN Q8HRS PRN IVP NAUSEA/VOMITING 1ST CHOICE; Start 04/29/21 at 05:45; Stop 04/30/21 at 05:44; Status DC Propofol (Diprivan) 200 mg 1X ONCE IV ; Start 04/29/21 at 06:30; Stop 04/29/21 at 06:31; Status DC Albuterol Sulfate (Ventolin Neb Soln) 2.5 mg PRN Q4HRS PRN NEB WHEEZING; Start 04/29/21 at 06:45 Atorvastatin Calcium (Lipitor) 80 mg HS PO Last administered on 05/02/21at 22:43; Start 04/29/21 at 21:00 Hydrochlorothiazide (Hydrodiuril) 12.5 mg BID94 PO Last administered on 05/02/21at 14:32; Start 04/29/21 at 12:00 Losartan Potassium (Cozaar) 25 mg DAILY PO Last administered on 05/01/21at 09:59; Start 04/29/21 at 09:00; Stop 05/01/21 at 16:21; Status DC Insulin Glargine (Lantus Syringe) 40 unit QHS SQ Last administered on 05/02/21at 22:50; Start 04/29/21 at 21:00 Propofol (Diprivan) 100 mg CONT PRN PRN IV SEDATION Last administered on 04/29/21at 05:15; Start 04/29/21 at 06:30; Stop 04/29/21 at 18:43; Status DC Fentanyl Citrate 30 ml @ 0 mls/hr CONT PRN PRN IV SEDATION/PAIN Last administered on 04/30/21at 06:42; Start 04/29/21 at 06:30; Stop 05/02/21 at 07: 42; Status DC Furosemide (Lasix) 20 mg DAILY IVP ; Start 04/30/21 at 09:00; Stop 04/29/21 at 16:25; Status DC Insulin Human Lispro (HumaLOG) 15 units TIDWMEALS SQ ; Start 04/29/21 at 08:00; Status UNV Dextrose (Dextrose 50%-Water Syringe) 12.5 gm PRN Q15MIN PRN IV SEE COMMENTS; Start 04/29/21 at 06:45 Insulin Human Lispro (HumaLOG) 15 units TIDWMEALS SQ ; Start 04/29/21 at 08:00; Stop 04/29/21 at 10:57; Status DC Midazolam HCl (Versed) 5 mg STK-MED ONCE .ROUTE ; Start 04/29/21 at 07:01; Stop 04/29/21 at 07:01; Status DC Succinylcholine Chloride (Anectine) 200 mg STK-MED ONCE .ROUTE ; Start 04/29/21 at 07:01; Stop 04/29/21 at 07:02; Status DC Ketamine HCl (Ketamine) 500 mg STK-MED ONCE .ROUTE ; Start 04/29/21 at 07:02; Stop 04/29/21 at 07:02; Status DC Propofol 100 ml @ As Directed STK-MED ONCE IV ; Start 04/29/21 at 08:30; Stop 04/29/21 at 08:30; Status DC Insulin Human Lispro (HumaLOG) 0-7 UNITS TIDWMEALS SQ Last administered on 04/29/21at 11:49; Start 04/29/21 at 12:00; Stop 04/30/21 at 11:00; Status DC Dextrose (Dextrose 50%-Water Syringe) 12.5 gm PRN Q15MIN PRN IV SEE COMMENTS; Start 04/29/21 at 11:00; Status Cancel Furosemide (Lasix) 40 mg 1X ONCE IVP Last administered on 04/29/21at 12:48; Start 04/29/21 at 12:45; Stop 04/29/21 at 12:46; Status DC Enoxaparin Sodium (Lovenox 40mg Syringe) 40 mg Q24H SQ Last administered on 05/02/21at 11:12; Start 04/29/21 at 13:00 Furosemide (Lasix) 40 mg 1X ONCE IVP Last administered on 04/29/21at 13:06; Start 04/29/21 at 13:00; Stop 04/29/21 at 13:01; Status DC Furosemide (Lasix) 40 mg DAILY IVP Last administered on 05/02/21at 08:20; Start 04/30/21 at 09:00 Propofol 100 ml @ 3.66 mls/hr CONT PRN IV PER PROTOCOL Last administered on 04/30/21at 09:41; Start 04/29/21 at 18:45; Stop 05/02/21 at 07:43; Status DC Famotidine (Pepcid Vial) 20 mg QHS IVP Last administered on 05/02/21at 22:43; Start 04/29/21 at 21:00 Insulin Human Lispro (HumaLOG) 0-7 UNITS Q6HRS SQ Last administered on 05/02/21at 17:20; Start 04/30/21 at 12:00; Stop 05/03/21 at 03:58; Status DC Furosemide (Lasix) 40 mg 1X ONCE IVP Last administered on 04/30/21at 17:26; Start 04/30/21 at 16:45; Stop 04/30/21 at 16:46; Status DC Hydralazine HCl (Apresoline Inj) 10 mg PRN Q4HRS PRN IVP ELEVATED BP, SEE COMMENTS Last administered on 05/01/21at 04:10; Start 04/30/21 at 16:45 Acetaminophen (Tylenol) 650 mg PRN Q6HRS PRN PO MILD PAIN / TEMP > 100.3'F Last administered on 05/02/21at 22:43; Start 05/01/21 at 16:00 Furosemide (Lasix) 40 mg 1X ONCE IVP Last administered on 05/01/21at 16:44; Start 05/01/21 at 16:30; Stop 05/01/21 at 16:31; Status DC Potassium Chloride (Klor-Con) 20 meq 1X ONCE PO Last administered on 05/01/21at 16:43; Start 05/01/21 at 16:30; Stop 05/01/21 at 16:31; Status DC Losartan Potassium (Cozaar) 50 mg DAILY PO Last administered on 05/02/21at 08:19; Start 05/02/21 at 09:00; Stop 05/02/21 at 14:03; Status DC Carvedilol (Coreg) 3.125 mg BIDWMEALS PO Last administered on 05/02/21at 08:18; Start 05/01/21 at 17:00; Stop 05/02/21 at 14:00; Status DC Acetaminophen/ Hydrocodone Bitart (Lortab 5/325) 1 tab PRN Q4HRS PRN PO MODERATE - SEVERE PAIN Last administered on 05/02/21at 14:33; Start 05/01/21 at 16:30 Zolpidem Tartrate (Ambien) 5 mg PRN QHS PRN PO INSOMNIA Last administered on 05/01/21at 20:45; Start 05/01/21 at 16:30 Ondansetron HCl (Zofran) 4 mg PRN Q8HRS PRN IVP NAUSEA/VOMITING; Start 05/01/21 at 16:30 Carvedilol (Coreg) 12.5 mg BIDWMEALS PO Last administered on 05/02/21at 17:16; Start 05/02/21 at 17:00 Carvedilol (Coreg) 6.25 mg 1X ONCE PO Last administered on 05/02/21at 14:33; Start 05/02/21 at 14:00; Stop 05/02/21 at 14:03; Status DC Losartan Potassium (Cozaar) 100 mg DAILY PO ; Start 05/03/21 at 09:00 Losartan Potassium (Cozaar) 50 mg 1X ONCE PO Last administered on 05/02/21at 14:33; Start 05/02/21 at 14:15; Stop 05/02/21 at 14:16; Status DC Insulin Human Lispro (HumaLOG) 0-7 UNITS QIDACHS SQ ; Start 05/03/21 at 07:30 Active Scripts Active Ventolin Hfa (Albuterol Sulfate) 8 Gm Hfa.aer.ad 1 Puff INH PRN Q4HRS PRN 30 Days Reported Multi Vitamin Daily (Multivitamin) 1 Each Tablet 1 Tab PO DAILY 30 Days Gabapentin 600 Mg Tablet 300 Mg PO DAILY Lantus Solostar (Insulin Glargine,Hum.rec.anlog) 100 Unit/1 Ml Insuln.pen 40 Unit SQ QHS Novolog (Insulin Aspart) 100 Unit/1 Ml Cartridge 15 Unit SQ TIDAC Atorvastatin Calcium 40 Mg Tablet 80 Mg PO HS Losartan Potassium 50 Mg Tablet 25 Mg PO DAILY Hydrochlorothiazide Tablet (Hydrochlorothiazide) 25 Mg Tablet 12.5 Mg PO BID Vitals/I & O Vital Sign - Last 24 Hours 05/02/21 05/02/21 05/02/21 05/02/21 08:00 08:18 08:19 08:19 Pulse 70 70 Resp 18 B/P (MAP) 152/63 152/63 Pulse Ox 96 O2 Delivery Nasal Cannula Nasal Cannula O2 Flow Rate 2.0 2.0 05/02/21 05/02/21 05/02/21 05/02/21 08:49 10:41 14:33 14:33 Temp 97.8 97.8 Pulse 70 70 Resp 20 18 B/P (MAP) 148/62 (90) 148/62 Pulse Ox 96 100 O2 Delivery Nasal Cannula Nasal Cannula Nasal Cannula O2 Flow Rate 2.0 3.5 3.0 05/02/21 05/02/21 05/02/21 05/02/21 14:33 15:00 15:03 17:16 Temp 99.0 99.0 Pulse 70 74 74 Resp 18 17 B/P (MAP) 148/62 149/79 (102) 149/79 Pulse Ox 98 O2 Delivery Nasal Cannula Nasal Cannula O2 Flow Rate 3.5 3.0 05/02/21 05/02/21 05/02/21 05/03/21 19:27 20:00 22:30 03:40 Temp 99.2 99.7 99.2 99.2 99.7 99.2 Pulse 73 66 68 Resp 18 18 18 B/P (MAP) 132/63 (86) 138/55 (82) 112/53 (72) Pulse Ox 98 97 98 O2 Delivery Nasal Cannula Nasal Cannula Nasal Cannula Nasal Cannula O2 Flow Rate 3.0 3.0 3.0 3.0 Intake and Output 05/02/21 05/02/21 05/03/21 15:00 23:00 07:00 Intake Total 600 ml 180 ml 760 ml Output Total 1500 ml 400 ml Balance 600 ml -1320 ml 360 ml Justicifation of Admission Dx: Justifications for Admission: Justification of Admission Dx: Yes CHF: Hemodynamic Instability POLI ARSHAD MD May 03, 2021 07:29
[2021-05-03] MEDS: hydroCHLOROthiazide 25 MG TABLET PO SCH (08:28)
[2021-05-03] MEDS: CARVEDILOL 12.5 MG TABLET. PO SCH (08:29)
[2021-05-03] MEDS: HYDROcodone/APAP 5/325MG 1 TAB TABLET PO PRN (08:29)
[2021-05-03] MEDS: FUROSEMIDE 40 MG/4 ML VIAL. IVP SCH (08:31)
[2021-05-03] MEDS: INSULIN LISPRO 300 UNITS/3 ML VIAL. SQ SCH ×3 (08:37→12:37)
[2021-05-03] MEDS ORDERED: LOSARTAN POTASSIUM 50 MG TABLET. PO SCH (09:00)
[2021-05-03 11:00] VITALS: BP 133/71
--- NOTE | 2021-05-03 11:32 | PDOC ---
CARDIO Progress Notes Date and Time Date of Service 05/03/2021 Time of Evaluation 1120 Subjective Subjective: No Chest Pain, No shortness of breath, No Palpitations Vitals Vitals Vital Signs Date Time Temp Pulse Resp B/P (MAP) Pulse Ox O2 Delivery O2 Flow Rate FiO2 05/03/21 09:13 98 Nasal Cannula 3.0 05/03/21 08:29 68 112/53 05/03/21 07:00 97.4 20 97.4 Weight Weight [ ] Input and Output Intake and Output Intake and Output 05/03/21 07:00 Intake Total 1540 ml Output Total 1900 ml Balance -360 ml Intake Oral 1540 ml Output Urine Total 1900 ml Laboratory Labs Laboratory Tests Test 05/02/21 16:06 05/02/21 20:53 05/03/21 04:15 05/03/21 07:57 Glucose (Fingerstick) 169 mg/dL (70-99) 195 mg/dL (70-99) 174 mg/dL (70-99) White Blood Count 7.1 x10^3/uL (4.0-11.0) Red Blood Count 4.00 x10^6/uL (4.30-5.70) Hemoglobin 11.9 g/dL (13.0-17.5) Hematocrit 35.6 % (39.0-53.0) Mean Corpuscular Volume 89 fL (79-100) Mean Corpuscular Hemoglobin 30 pg (25-35) Mean Corpuscular Hemoglobin Concent 33 g/dL (31-37) Red Cell Distribution Width 13.5 % (11.5-14.5) Platelet Count 359 x10^3/uL (140-400) Neutrophils (%) (Auto) 63 % (31-73) Lymphocytes (%) (Auto) 20 % (24-48) Monocytes (%) (Auto) 14 % (0-9) Eosinophils (%) (Auto) 3 % (0-3) Basophils (%) (Auto) 0 % (0-3) Neutrophils # (Auto) 4.5 x10^3/uL (1.8-7.7) Lymphocytes # (Auto) 1.4 x10^3/uL (1.0-4.8) Monocytes # (Auto) 1.0 x10^3/uL (0.0-1.1) Eosinophils # (Auto) 0.2 x10^3/uL (0.0-0.7) Basophils # (Auto) 0.0 x10^3/uL (0.0-0.2) Sodium Level 138 mmol/L (136-145) Potassium Level 3.8 mmol/L (3.5-5.1) Chloride Level 100 mmol/L (98-107) Carbon Dioxide Level 30 mmol/L (21-32) Anion Gap 8 (6-14) Blood Urea Nitrogen 28 mg/dL (8-26) Creatinine 1.4 mg/dL (0.7-1.3) Estimated GFR (Cockcroft-Gault) 61.5 Glucose Level 240 mg/dL (70-99) Calcium Level 9.0 mg/dL (8.5-10.1) Physical Exam HEENT: Neck Supple W Full Motion Chest: Symmetric LUNGS: Other (diminished bases) Heart: RRR (SR) Abdomen: Soft N/T Extremities: No Edema Neurology: alert, oriented, follow commands Assessment Assessment 1. Acute on chronic respiratory failure with CHF, ? PNA; s/p extubation. on NC 2. Acute on chronic diastolic CHF in setting of hypertensive urgency. Echo with preserved LV systolic function Compensated 3. Hypertensive urgency; controlled 4. Hyperlipidemia; statin 5. Diabetes, II 6. Elevated LFTs 7. H/o substance abuse; UDS negative Recommendations Lasix therapy Continue current BP regimen 2Gm Na diet as able ([employer] prepares meals), 2000cc FR Consider outpatient ischemic evaluation; patient will need to follow up through the [facility] Supportive [facility] Justicifation of Admission Dx: Justifications for Admission: Justification of Admission Dx: Yes CHF: Hemodynamic Instability EDWAR [employer]VES [employer] ADMIN[employer] May 03, 2021 11:32
--- NOTE | 2021-05-03 11:41 | PDOC ---
PULMONARY PROGRESS NOTES DATE: 05/03/21 TIME: 11:39 Subjective Denies any shortness of breath. Extubated 04/30/2021 Doing well on nasal cannula Vitals Vital Signs Date Time Temp Pulse Resp B/P (MAP) Pulse Ox O2 Delivery O2 Flow Rate FiO2 05/03/21 09:13 98 Nasal Cannula 3.0 05/03/21 08:29 68 112/53 05/03/21 07:00 97.4 20 97.4 General: Alert, No acute distress Lungs: Clear Cardiovascular: S1 Abdomen: Soft Extremities: Other (1+ edema) Skin: Warm Labs Laboratory Tests Test 05/01/21 12:11 05/01/21 16:47 05/01/21 20:47 05/02/21 03:30 Glucose (Fingerstick) 206 mg/dL (70-99) 189 mg/dL (70-99) 170 mg/dL (70-99) White Blood Count 8.4 x10^3/uL (4.0-11.0) Red Blood Count 4.01 x10^6/uL (4.30-5.70) Hemoglobin 11.9 g/dL (13.0-17.5) Hematocrit 35.9 % (39.0-53.0) Mean Corpuscular Volume 89 fL (79-100) Mean Corpuscular Hemoglobin 30 pg (25-35) Mean Corpuscular Hemoglobin Concent 33 g/dL (31-37) Red Cell Distribution Width 13.5 % (11.5-14.5) Platelet Count 331 x10^3/uL (140-400) Neutrophils (%) (Auto) 73 % (31-73) Lymphocytes (%) (Auto) 13 % (24-48) Monocytes (%) (Auto) 12 % (0-9) Eosinophils (%) (Auto) 2 % (0-3) Basophils (%) (Auto) 0 % (0-3) Neutrophils # (Auto) 6.1 x10^3/uL (1.8-7.7) Lymphocytes # (Auto) 1.1 x10^3/uL (1.0-4.8) Monocytes # (Auto) 1.0 x10^3/uL (0.0-1.1) Eosinophils # (Auto) 0.1 x10^3/uL (0.0-0.7) Basophils # (Auto) 0.0 x10^3/uL (0.0-0.2) Sodium Level 143 mmol/L (136-145) Potassium Level 3.8 mmol/L (3.5-5.1) Chloride Level 104 mmol/L (98-107) Carbon Dioxide Level 31 mmol/L (21-32) Anion Gap 8 (6-14) Blood Urea Nitrogen 23 mg/dL (8-26) Creatinine 1.3 mg/dL (0.7-1.3) Estimated GFR (Cockcroft-Gault) 67.0 Glucose Level 138 mg/dL (70-99) Calcium Level 8.7 mg/dL (8.5-10.1) Total Bilirubin 0.4 mg/dL (0.2-1.0) Direct Bilirubin 0.1 mg/dL (0.0-0.2) Aspartate Amino Transf (AST/SGOT) 31 U/L (15-37) Alanine Aminotransferase (ALT/SGPT) 70 U/L (16-63) Alkaline Phosphatase 86 U/L (46-116) C-Reactive Protein, Quantitative 126.9 mg/L (0-3.3) Total Protein 6.0 g/dL (6.4-8.2) Albumin 2.6 g/dL (3.4-5.0) Procalcitonin 0.30 ng/mL (0.00-0.10) Test 05/02/21 07:22 05/02/21 11:11 05/02/21 16:06 05/02/21 20:53 Glucose (Fingerstick) 148 mg/dL (70-99) 220 mg/dL (70-99) 169 mg/dL (70-99) 195 mg/dL (70-99) Test 05/03/21 04:15 05/03/21 07:57 White Blood Count 7.1 x10^3/uL (4.0-11.0) Red Blood Count 4.00 x10^6/uL (4.30-5.70) Hemoglobin 11.9 g/dL (13.0-17.5) Hematocrit 35.6 % (39.0-53.0) Mean Corpuscular Volume 89 fL (79-100) Mean Corpuscular Hemoglobin 30 pg (25-35) Mean Corpuscular Hemoglobin Concent 33 g/dL (31-37) Red Cell Distribution Width 13.5 % (11.5-14.5) Platelet Count 359 x10^3/uL (140-400) Neutrophils (%) (Auto) 63 % (31-73) Lymphocytes (%) (Auto) 20 % (24-48) Monocytes (%) (Auto) 14 % (0-9) Eosinophils (%) (Auto) 3 % (0-3) Basophils (%) (Auto) 0 % (0-3) Neutrophils # (Auto) 4.5 x10^3/uL (1.8-7.7) Lymphocytes # (Auto) 1.4 x10^3/uL (1.0-4.8) Monocytes # (Auto) 1.0 x10^3/uL (0.0-1.1) Eosinophils # (Auto) 0.2 x10^3/uL (0.0-0.7) Basophils # (Auto) 0.0 x10^3/uL (0.0-0.2) Sodium Level 138 mmol/L (136-145) Potassium Level 3.8 mmol/L (3.5-5.1) Chloride Level 100 mmol/L (98-107) Carbon Dioxide Level 30 mmol/L (21-32) Anion Gap 8 (6-14) Blood Urea Nitrogen 28 mg/dL (8-26) Creatinine 1.4 mg/dL (0.7-1.3) Estimated GFR (Cockcroft-Gault) 61.5 Glucose Level 240 mg/dL (70-99) Calcium Level 9.0 mg/dL (8.5-10.1) Glucose (Fingerstick) 174 mg/dL (70-99) Laboratory Tests Test 05/02/21 16:06 05/02/21 20:53 05/03/21 04:15 05/03/21 07:57 Glucose (Fingerstick) 169 mg/dL (70-99) 195 mg/dL (70-99) 174 mg/dL (70-99) White Blood Count 7.1 x10^3/uL (4.0-11.0) Red Blood Count 4.00 x10^6/uL (4.30-5.70) Hemoglobin 11.9 g/dL (13.0-17.5) Hematocrit 35.6 % (39.0-53.0) Mean Corpuscular Volume 89 fL (79-100) Mean Corpuscular Hemoglobin 30 pg (25-35) Mean Corpuscular Hemoglobin Concent 33 g/dL (31-37) Red Cell Distribution Width 13.5 % (11.5-14.5) Platelet Count 359 x10^3/uL (140-400) Neutrophils (%) (Auto) 63 % (31-73) Lymphocytes (%) (Auto) 20 % (24-48) Monocytes (%) (Auto) 14 % (0-9) Eosinophils (%) (Auto) 3 % (0-3) Basophils (%) (Auto) 0 % (0-3) Neutrophils # (Auto) 4.5 x10^3/uL (1.8-7.7) Lymphocytes # (Auto) 1.4 x10^3/uL (1.0-4.8) Monocytes # (Auto) 1.0 x10^3/uL (0.0-1.1) Eosinophils # (Auto) 0.2 x10^3/uL (0.0-0.7) Basophils # (Auto) 0.0 x10^3/uL (0.0-0.2) Sodium Level 138 mmol/L (136-145) Potassium Level 3.8 mmol/L (3.5-5.1) Chloride Level 100 mmol/L (98-107) Carbon Dioxide Level 30 mmol/L (21-32) Anion Gap 8 (6-14) Blood Urea Nitrogen 28 mg/dL (8-26) Creatinine 1.4 mg/dL (0.7-1.3) Estimated GFR (Cockcroft-Gault) 61.5 Glucose Level 240 mg/dL (70-99) Calcium Level 9.0 mg/dL (8.5-10.1) Medications Active Scripts Medications Dose Route/Sig Max Daily Dose Days Date Category Ventolin Hfa (Albuterol Sulfate) 8 Gm Hfa.aer.ad 1 Puff INH PRN Q4HRS PRN 30 02/04/21 Rx Multi Vitamin Daily (Multivitamin) 1 Each Tablet 1 Tab PO DAILY 30 02/04/21 Reported Gabapentin 600 Mg Tablet 300 Mg PO DAILY 02/04/21 Reported Lantus Solostar (Insulin Glargine,Hum.rec.anlog) 100 Unit/1 Ml Insuln.pen 40 Unit SQ QHS 02/04/21 Reported Novolog (Insulin Aspart) 100 Unit/1 Ml Cartridge 15 Unit SQ TIDAC 02/04/21 Reported Atorvastatin Calcium 40 Mg Tablet 80 Mg PO HS 02/04/21 Reported Losartan Potassium 50 Mg Tablet 25 Mg PO DAILY 02/04/21 Reported Hydrochlorothiazide Tablet (Hydrochlorothiazide) 25 Mg Tablet 12.5 Mg PO BID 02/04/21 Reported Comments Chest x-ray reviewed 05/02/2021. Resolved right lower lobe pneumonia. Improvement in overall mild CHF Chest x-ray 04/30/2021 Mild improvement in CHF Impression . 1. Acute hypercapnic respiratory failure secondary to acute flash pulmonary edema from hypertensive urgency. Extubated 04/30 2. Hypertensive urgency triggering diastolic congestive heart failure. 3. Abnormal chest x-ray consistent with congestive heart failure. 4. COVID-19 negative. 5. History of addictions, but urine drug screen negative. 6. Abnormal AST and ALT related to hypoperfusion. Plan . 1. Oxygen status has improved. Continue nasal cannula. 2. Follow cardiology recommendations. 3. Follow chest x-ray as needed. Overall chest x-ray has improved. 4. Diuresis. 5. Will need a 6-minute walk test at discharge. 6. DVT prophylaxis 7. Enteral nutrition. 8. Discussed with MICHELLE QUINONES MD May 03, 2021 11:41
--- NOTE | 2021-05-03 11:57 | PDOC3 ---
Discharge Summary Date of Admission: Apr 29, 2021 Date of Discharge: May 03, 2021 Follow-Up: 1-2 days Admitting Diagnosis comment: History of Present Illness History of Present Illness Patient 66-year-old male past medical history DM2, HTN, presents to the ED from [facility] with complaints of shortness of breath. Much history is obtained through chart review due to clinical condition. Upon arrival by EMS she was saturating 94% on room air. He was diaphoretic and tachypneic, and subsequently placed on BiPAP. Labs on admission showed creatinine 1.4, CBG 333, AST 184, ALT 185, alk phos 153, BNP 1190, albumin 2.9. Blood pressure in the ED noted to be significantly elevated at 242/113 mmHg. He received Lasix and was placed on Cardene drip due to hypertensive emergency. Decision was made in ED to intubate patient due to worsening respiratory failure. Will be admitted to ICU for further medical management. COMPLICATIONS NONE D/C CONDITION GOOD D/C MEDS SEE [facility]NER CONSULTS PULMONARY, CARDIOLOGY DISCHARGE DX Chief Complaint Acute respiratory failure with hypoxia Acute CHF Flash pulmonary edema Hypertensive emergency MICHAEL due to vasomotor nephropathy Transaminitis DM2 with hyperglycemia Severe malnutrition COVID-19 PUI MORBID OBESITY Plan: Patient admitted to ICU on Cardene drip Consultation placed to cardiology and pulmonology We will continue to diurese patient with Lasix daily; monitor daily I's & O's. Echocardiogram has been ordered pending COVID-19 status. We will resume what home blood pressure medications we can at this time and wean off Cardene drip as tolerated Basal insulin COVID-19 pending FEN - NPO PPX - Lovenox FULL CODE Dispo - inpatient for above Unable to name surrogate decision-maker at this time History of Present Illness History of Present Illness Patient 66-year-old male past medical history DM2, HTN, presents to the ED from [facility] with complaints of shortness of breath. Much history is obtained through chart review due to clinical condition. Upon arrival by EMS she was saturating 94% on room air. He was diaphoretic and tachypneic, and subsequently placed on BiPAP. Labs on admission showed creatinine 1.4, CBG 333, AST 184, ALT 185, alk phos 153, BNP 1190, albumin 2.9. Blood pressure in the ED noted to be significantly elevated at 242/113 mmHg. He received Lasix and was placed on Cardene drip due to hypertensive emergency. Decision was made in ED to intubate patient due to worsening respiratory failure. Will be admitted to ICU for further medical management. HOSPITAL COURSE 04/30/2021: Low-grade fever overnight, T-max 100.1 F. On vent with FiO2 40%, PEEP 5. Will follow cardiology recommendations. Continue diuresis with close monitoring of kidney function. 1940 mL urine output overnight. Echocardiogram s howed normal left ventricular systolic function with a EF 55%; mild inferior wall hypokinesia, recommended outpatient ischemic evaluation. Blood pressure stable. Ventilator management per pulmonology; likely pursue CPAP trial the next 24 hours. Critical care time 30 minutes spent reviewing charts, reviewing imaging, reviewing labs, and discussion with RN. 05/01/2021: Febrile overnight, T-max 100.6 F. Extubated yesterday, now breathing on 3 L nasal cannula. 2490 mL urine output overnight. At home he was breathing on 3-4 L nasal cannula at baseline. States he has been compliant with his home Lasix but did not feel that this medication was keeping fluid off of him. Discussed nonpharmacological ways of addressing his CHF; sodium and fluid restriction. States he is swallowing well. We will continue to follow cardiology recommendations; diuresis with monitoring of renal function and outpatient ischemic evaluation. Chest x-ray yesterday showed increased right lower lobe infiltrate. Will obtain CRP and procalcitonin to help rule out any pulmonary infection. Critical care time 30 minutes spent reviewing charts, reviewing imaging, reviewing labs, and discussion with RN. 05/02/2021: Acute on chronic diastolic CHF in setting of hypertensive urgency. s/p IV diuresis. Echo with preserved LV systolic function Near complete resolution of right lower lobe infiltrate. CXR 05-02 Acute hypercapnic respiratory failure secondary to acute flash pulmonary edema from hypertensive urgency. Extubated 04/30 Hypertensive urgency triggering diastolic congestive heart failure. Febrile 04-30 T-max 100.6 F. Extubated 04-30 , now breathing on 3 L At home 3-4 L nasal cannula at baseline. States he has been compliant with his home Lasix but did not feel that this medication was keeping fluid off of him. Discussed nonpharmacological ways of addressing his CHF; sodium and fluid restriction. swallowing well. We will continue to follow cardiology recommendations; diuresis with monitoring of renal function outpatient ischemic evaluation. Chest x-ray 04-30 showed increased right lower lobe infiltrate. CRP and procalcitonin to help rule out any pulmonary infection. CRP 126.9 discussion with RN. A1C 10.1 05/03/2021: Acute on chronic diastolic CHF in setting of hypertensive urgency. s/p IV diuresis. Echo with preserved LV systolic function Near complete resolution of right lower lobe infiltrate. CXR 05-02 Acute hypercapnic respiratory failure secondary to acute flash pulmonary edema from hypertensive urgency. Extubated 04/30 Hypertensive urgency triggering diastolic congestive heart failure. Febrile 04-30 T-max 100.6 F. Extubated 04-30 , now breathing on 3 L At home 3-4 L nasal cannula at baseline. States he has been compliant with his home Lasix but did not feel that this medication was keeping fluid off of him. Discussed nonpharmacological ways of addressing his CHF; sodium and fluid restriction. swallowing well. We will continue to follow cardiology recommendations; diuresis with monitoring of renal function outpatient ischemic evaluation. Chest x-ray 04-30 showed increased right lower lobe infiltrate. CRP and procalcitonin to help rule out any pulmonary infection. CRP 126.9 discussion with RN. A1C 10.1 HOME WITH HOME HEALTH TODAY D/C PLANNING 34 MIN Vitals Vitals Vital Signs Date Time Temp Pulse Resp B/P (MAP) Pulse Ox O2 Delivery O2 Flow Rate FiO2 05/03/21 03:40 99.2 68 18 112/53 (72) 98 Nasal Cannula 3.0 99.2 Physical Exam General: Alert, Oriented X3, Cooperative, No acute distress, Other Heart: Regular rate, No murmurs Lungs: Clear Abdomen: Normal bowel sounds, Soft, No tenderness, No hepatosplenomegaly, Other (obese) Extremities: No clubbing, No cyanosis, Other (trace bilateral LE edema ) Skin: No rashes, No significant lesion FINAL DIAGNOSIS Problems Medical Problems: (1) Flash pulmonary edema Status: Acute (2) Hypertensive emergency Status: Acute (3) Respiratory failure Status: Acute Brief Hospital Course Mr. Cardozo is a 66 old [sex] who presented with [ CHF, RESP FAILURE] CONDITION AT DISCHARGE: Improved Discharge Medications Current Medications Midazolam HCl 100 ml @ 1 mls/hr CONT PRN IV SEE I/O RECORD Last administered on 04/29/21at 23:16; Start 04/29/21 at 05:00; Stop 05/02/21 at 07:42; Status DC Propofol 100 ml @ As Directed STK-MED ONCE IV ; Start 04/29/21 at 04:51; Stop 04/29/21 at 04:51; Status DC Furosemide (Lasix) 40 mg STK-MED ONCE .ROUTE ; Start 04/29/21 at 04:53; Stop 04/29/21 at 04:54; Status DC Nicardipine HCl 50 mg/Sodium Chloride 250 ml @ 25 mls/hr CONT PRN IV SEE I/O RECORD; Start 04/29/21 at 05:00 Nitroglycerin (Nitrostat) 0.4 mg STK-MED ONCE SL ; Start 04/29/21 at 04:57; Stop 04/29/21 at 04:57; Status DC Furosemide (Lasix) 40 mg 1X ONCE IVP Last administered on 04/29/21at 04:56; Start 04/29/21 at 05:30; Stop 04/29/21 at 05:31; Status DC Nitroglycerin (Nitrostat) 0.4 mg PRN Q5MIN PRN SL CHEST PAIN Last administered on 04/29/21at 04:58; Start 04/29/21 at 05:15 Nicardipine HCl 50 mg/Sodium Chloride 250 ml @ 25 mls/hr CONT PRN IV SEE I/O RECORD; Start 04/29/21 at 05:30; Status UNV Ondansetron HCl (Zofran) 4 mg PRN Q8HRS PRN IVP NAUSEA/VOMITING 1ST CHOICE; Start 04/29/21 at 05:45; Stop 04/30/21 at 05:44; Status DC Propofol (Diprivan) 200 mg 1X ONCE IV ; Start 04/29/21 at 06:30; Stop 04/29/21 at 06:31; Status DC Albuterol Sulfate (Ventolin Neb Soln) 2.5 mg PRN Q4HRS PRN NEB WHEEZING; Start 04/29/21 at 06:45 Atorvastatin Calcium (Lipitor) 80 mg HS PO Last administered on 05/02/21at 22:43; Start 04/29/21 at 21:00 Hydrochlorothiazide (Hydrodiuril) 12.5 mg BID94 PO Last administered on 05/03/21at 08:28; Start 04/29/21 at 12:00 Losartan Potassium (Cozaar) 25 mg DAILY PO Last administered on 05/01/21at 09:59; Start 04/29/21 at 09:00; Stop 05/01/21 at 16:21; Status DC Insulin Glargine (Lantus Syringe) 40 unit QHS SQ Last administered on 05/02/21at 22:50; Start 04/29/21 at 21:00 Propofol (Diprivan) 100 mg CONT PRN PRN IV SEDATION Last administered on 04/29/21at 05:15; Start 04/29/21 at 06:30; Stop 04/29/21 at 18:43; Status DC Fentanyl Citrate 30 ml @ 0 mls/hr CONT PRN PRN IV SEDATION/PAIN Last administered on 04/30/21at 06:42; Start 04/29/21 at 06:30; Stop 05/02/21 at 07:42; Status DC Furosemide (Lasix) 20 mg DAILY IVP ; Start 04/30/21 at 09:00; Stop 04/29/21 at 16:25; Status DC Insulin Human Lispro (HumaLOG) 15 units TIDWMEALS SQ ; Start 04/29/21 at 08:00; Status UNV Dextrose (Dextrose 50%-Water Syringe) 12.5 gm PRN Q15MIN PRN IV SEE COMMENTS; Start 04/29/21 at 06:45 Insulin Human Lispro (HumaLOG) 15 units TIDWMEALS SQ ; Start 04/29/21 at 08:00; Stop 04/29/21 at 10:57; Status DC Midazolam HCl (Versed) 5 mg STK-MED ONCE .ROUTE ; Start 04/29/21 at 07:01; Stop 04/29/21 at 07:01; Status DC Succinylcholine Chloride (Anectine) 200 mg STK-MED ONCE .ROUTE ; Start 04/29/21 at 07:01; Stop 04/29/21 at 07:02; Status DC Ketamine HCl (Ketamine) 500 mg STK-MED ONCE .ROUTE ; Start 04/29/21 at 07:02; Stop 04/29/21 at 07:02; Status DC Propofol 100 ml @ As Directed STK-MED ONCE IV ; Start 04/29/21 at 08:30; Stop 04/29/21 at 08:30; Status DC Insulin Human Lispro (HumaLOG) 0-7 UNITS TIDWMEALS SQ Last administered on 04/29/21at 11:49; Start 04/29/21 at 12:00; Stop 04/30/21 at 11:00; Status DC Dextrose (Dextrose 50%-Water Syringe) 12.5 gm PRN Q15MIN PRN IV SEE COMMENTS; Start 04/29/21 at 11:00; Status Cancel Furosemide (Lasix) 40 mg 1X ONCE IVP Last administered on 04/29/21at 12:48; Start 04/29/21 at 12:45; Stop 04/29/21 at 12:46; Status DC Enoxaparin Sodium (Lovenox 40mg Syringe) 40 mg Q24H SQ Last administered on 05/02/21at 11:12; Start 04/29/21 at 13:00 Furosemide (Lasix) 40 mg 1X ONCE IVP Last administered on 04/29/21at 13:06; Start 04/29/21 at 13:00; Stop 04/29/21 at 13:01; Status DC Furosemide (Lasix) 40 mg DAILY IVP Last administered on 05/03/21at 08:31; Start 04/30/21 at 09:00 Propofol 100 ml @ 3.66 mls/hr CONT PRN IV PER PROTOCOL Last administered on 04/30/21at 09:41; Start 04/29/21 at 18:45; Stop 05/02/21 at 07:43; Status DC Famotidine (Pepcid Vial) 20 mg QHS IVP Last administered on 05/02/21at 22:43; Start 04/29/21 at 21:00; Stop 05/03/21 at 09:14; Status DC Insulin Human Lispro (HumaLOG) 0-7 UNITS Q6HRS SQ Last administered on 05/02/21at 17:20; Start 04/30/21 at 12:00; Stop 05/03/21 at 03:58; Status DC Furosemide (Lasix) 40 mg 1X ONCE IVP Last administered on 04/30/21at 17:26; Start 04/30/21 at 16:45; Stop 04/30/21 at 16:46; Status DC Hydralazine HCl (Apresoline Inj) 10 mg PRN Q4HRS PRN IVP ELEVATED BP, SEE COMMENTS Last administered on 05/01/21at 04:10; Start 04/30/21 at 16:45 Acetaminophen (Tylenol) 650 mg PRN Q6HRS PRN PO MILD PAIN / TEMP > 100.3'F Last administered on 05/02/21at 22:43; Start 05/01/21 at 16:00 Furosemide (Lasix) 40 mg 1X ONCE IVP Last administered on 05/01/21at 16:44; Start 05/01/21 at 16:30; Stop 05/01/21 at 16:31; Status DC Potassium Chloride (Klor-Con) 20 meq 1X ONCE PO Last administered on 05/01/21at 16:43; Start 05/01/21 at 16:30; Stop 05/01/21 at 16:31; Status DC Losartan Potassium (Cozaar) 50 mg DAILY PO Last administered on 05/02/21at 08:19; Start 05/02/21 at 09:00; Stop 05/02/21 at 14:03; Status DC Carvedilol (Coreg) 3.125 mg BIDWMEALS PO Last administered on 05/02/21at 08:18; Start 05/01/21 at 17:00; Stop 05/02/21 at 14:00; Status DC Acetaminophen/ Hydrocodone Bitart (Lortab 5/325) 1 tab PRN Q4HRS PRN PO MODERATE - SEVERE PAIN Last administered on 05/03/21at 08:29; Start 05/01/21 at 16:30 Zolpidem Tartrate (Ambien) 5 mg PRN QHS PRN PO INSOMNIA Last administered on 05/01/21at 20:45; Start 05/01/21 at 16:30 Ondansetron HCl (Zofran) 4 mg PRN Q8HRS PRN IVP NAUSEA/VOMITING; Start 05/01/21 at 16:30 Carvedilol (Coreg) 12.5 mg BIDWMEALS PO Last administered on 05/03/21at 08:29; Start 05/02/21 at 17:00 Carvedilol (Coreg) 6.25 mg 1X ONCE PO Last administered on 05/02/21at 14:33; Start 05/02/21 at 14:00; Stop 05/02/21 at 14:03; Status DC Losartan Potassium (Cozaar) 100 mg DAILY PO Last administered on 05/03/21at 08:29; Start 05/03/21 at 09:00 Losartan Potassium (Cozaar) 50 mg 1X ONCE PO Last administered on 05/02/21at 14:33; Start 05/02/21 at 14:15; Stop 05/02/21 at 14:16; Status DC Insulin Human Lispro (HumaLOG) 0-7 UNITS QIDACHS SQ Last administered on 05/03/21at 08:37; Start 05/03/21 at 07:30 Famotidine (Pepcid) 20 mg QHS PO ; Start 05/03/21 at 21:00 Docusate Sodium (Colace) 100 mg BID PO ; Start 05/03/21 at 13:00 Active Scripts Active Ventolin Hfa (Albuterol Sulfate) 8 Gm Hfa.aer.ad 1 Puff INH PRN Q4HRS PRN 30 Days Reported Multi Vitamin Daily (Multivitamin) 1 Each Tablet 1 Tab PO DAILY 30 Days Gabapentin 600 Mg Tablet 300 Mg PO DAILY Lantus Solostar (Insulin Glargine,Hum.rec.anlog) 100 Unit/1 Ml Insuln.pen 40 Unit SQ QHS Novolog (Insulin Aspart) 100 Unit/1 Ml Cartridge 15 Unit SQ TIDAC Atorvastatin Calcium 40 Mg Tablet 80 Mg PO HS Losartan Potassium 50 Mg Tablet 25 Mg PO DAILY Hydrochlorothiazide Tablet (Hydrochlorothiazide) 25 Mg Tablet 12.5 Mg PO BID Vital Signs Vital Signs Date Time Temp Pulse Resp B/P (MAP) Pulse Ox O2 Delivery O2 Flow Rate FiO2 05/03/21 09:13 98 Nasal Cannula 3.0 05/03/21 08:29 68 112/53 05/03/21 07:00 97.4 20 97.4 Labs Laboratory Tests Test 05/01/21 12:11 05/01/21 16:47 05/01/21 20:47 05/02/21 03:30 Glucose (Fingerstick) 206 mg/dL (70-99) 189 mg/dL (70-99) 170 mg/dL (70-99) White Blood Count 8.4 x10^3/uL (4.0-11.0) Red Blood Count 4.01 x10^6/uL (4.30-5.70) Hemoglobin 11.9 g/dL (13.0-17.5) Hematocrit 35.9 % (39.0-53.0) Mean Corpuscular Volume 89 fL (79-100) Mean Corpuscular Hemoglobin 30 pg (25-35) Mean Corpuscular Hemoglobin Concent 33 g/dL (31-37) Red Cell Distribution Width 13.5 % (11.5-14.5) Platelet Count 331 x10^3/uL (140-400) Neutrophils (%) (Auto) 73 % (31-73) Lymphocytes (%) (Auto) 13 % (24-48) Monocytes (%) (Auto) 12 % (0-9) Eosinophils (%) (Auto) 2 % (0-3) Basophils (%) (Auto) 0 % (0-3) Neutrophils # (Auto) 6.1 x10^3/uL (1.8-7.7) Lymphocytes # (Auto) 1.1 x10^3/uL (1.0-4.8) Monocytes # (Auto) 1.0 x10^3/uL (0.0-1.1) Eosinophils # (Auto) 0.1 x10^3/uL (0.0-0.7) Basophils # (Auto) 0.0 x10^3/uL (0.0-0.2) Sodium Level 143 mmol/L (136-145) Potassium Level 3.8 mmol/L (3.5-5.1) Chloride Level 104 mmol/L (98-107) Carbon Dioxide Level 31 mmol/L (21-32) Anion Gap 8 (6-14) Blood Urea Nitrogen 23 mg/dL (8-26) Creatinine 1.3 mg/dL (0.7-1.3) Estimated GFR (Cockcroft-Gault) 67.0 Glucose Level 138 mg/dL (70-99) Calcium Level 8.7 mg/dL (8.5-10.1) Total Bilirubin 0.4 mg/dL (0.2-1.0) Direct Bilirubin 0.1 mg/dL (0.0-0.2) Aspartate Amino Transf (AST/SGOT) 31 U/L (15-37) Alanine Aminotransferase (ALT/SGPT) 70 U/L (16-63) Alkaline Phosphatase 86 U/L (46-116) C-Reactive Protein, Quantitative 126.9 mg/L (0-3.3) Total Protein 6.0 g/dL (6.4-8.2) Albumin 2.6 g/dL (3.4-5.0) Procalcitonin 0.30 ng/mL (0.00-0.10) Test 05/02/21 07:22 05/02/21 11:11 05/02/21 16:06 05/02/21 20:53 Glucose (Fingerstick) 148 mg/dL (70-99) 220 mg/dL (70-99) 169 mg/dL (70-99) 195 mg/dL (70-99) Test 05/03/21 04:15 05/03/21 07:57 White Blood Count 7.1 x10^3/uL (4.0-11.0) Red Blood Count 4.00 x10^6/uL (4.30-5.70) Hemoglobin 11.9 g/dL (13.0-17.5) Hematocrit 35.6 % (39.0-53.0) Mean Corpuscular Volume 89 fL (79-100) Mean Corpuscular Hemoglobin 30 pg (25-35) Mean Corpuscular Hemoglobin Concent 33 g/dL (31-37) Red Cell Distribution Width 13.5 % (11.5-14.5) Platelet Count 359 x10^3/uL (140-400) Neutrophils (%) (Auto) 63 % (31-73) Lymphocytes (%) (Auto) 20 % (24-48) Monocytes (%) (Auto) 14 % (0-9) Eosinophils (%) (Auto) 3 % (0-3) Basophils (%) (Auto) 0 % (0-3) Neutrophils # (Auto) 4.5 x10^3/uL (1.8-7.7) Lymphocytes # (Auto) 1.4 x10^3/uL (1.0-4.8) Monocytes # (Auto) 1.0 x10^3/uL (0.0-1.1) Eosinophils # (Auto) 0.2 x10^3/uL (0.0-0.7) Basophils # (Auto) 0.0 x10^3/uL (0.0-0.2) Sodium Level 138 mmol/L (136-145) Potassium Level 3.8 mmol/L (3.5-5.1) Chloride Level 100 mmol/L (98-107) Carbon Dioxide Level 30 mmol/L (21-32) Anion Gap 8 (6-14) Blood Urea Nitrogen 28 mg/dL (8-26) Creatinine 1.4 mg/dL (0.7-1.3) Estimated GFR (Cockcroft-Gault) 61.5 Glucose Level 240 mg/dL (70-99) Calcium Level 9.0 mg/dL (8.5-10.1) Glucose (Fingerstick) 174 mg/dL (70-99) Laboratory Tests Test 05/02/21 16:06 05/02/21 20:53 05/03/21 04:15 05/03/21 07:57 Glucose (Fingerstick) 169 mg/dL (70-99) 195 mg/dL (70-99) 174 mg/dL (70-99) White Blood Count 7.1 x10^3/uL (4.0-11.0) Red Blood Count 4.00 x10^6/uL (4.30-5.70) Hemoglobin 11.9 g/dL (13.0-17.5) Hematocrit 35.6 % (39.0-53.0) Mean Corpuscular Volume 89 fL (79-100) Mean Corpuscular Hemoglobin 30 pg (25-35) Mean Corpuscular Hemoglobin Concent 33 g/dL (31-37) Red Cell Distribution Width 13.5 % (11.5-14.5) Platelet Count 359 x10^3/uL (140-400) Neutrophils (%) (Auto) 63 % (31-73) Lymphocytes (%) (Auto) 20 % (24-48) Monocytes (%) (Auto) 14 % (0-9) Eosinophils (%) (Auto) 3 % (0-3) Basophils (%) (Auto) 0 % (0-3) Neutrophils # (Auto) 4.5 x10^3/uL (1.8-7.7) Lymphocytes # (Auto) 1.4 x10^3/uL (1.0-4.8) Monocytes # (Auto) 1.0 x10^3/uL (0.0-1.1) Eosinophils # (Auto) 0.2 x10^3/uL (0.0-0.7) Basophils # (Auto) 0.0 x10^3/uL (0.0-0.2) Sodium Level 138 mmol/L (136-145) Potassium Level 3.8 mmol/L (3.5-5.1) Chloride Level 100 mmol/L (98-107) Carbon Dioxide Level 30 mmol/L (21-32) Anion Gap 8 (6-14) Blood Urea Nitrogen 28 mg/dL (8-26) Creatinine 1.4 mg/dL (0.7-1.3) Estimated GFR (Cockcroft-Gault) 61.5 Glucose Level 240 mg/dL (70-99) Calcium Level 9.0 mg/dL (8.5-10.1) Allergies Allergies Coded Allergies Type Severity Reaction Last Updated Verified No Known Drug Allergies 02/04/21 No Disposition/Orders: D/C to Home w/ HH Justicifation of Admission Dx: Justifications for Admission: Justification of Admission Dx: Yes CHF: Hemodynamic Instability POLI ARSHAD MD May 03, 2021 11:57
[2021-05-03] MEDS ORDERED: CARV12.511 PO (12:01)
[2021-05-03] MEDS ORDERED: NITR0.4T24 SL (12:01)
[2021-05-03] MEDS ORDERED: LOSA-73 PO (12:01)
[2021-05-03] MEDS ORDERED: FURO-68 PO (12:01)
[2021-05-03] MEDS ORDERED: FAMO20TA5 PO (12:01)
[2021-05-03] MEDS ORDERED: DOCU-109 PO (12:01)
[2021-05-03] MEDS ORDERED: ACET325T21 PO (12:01)
--- NOTE | 2021-05-03 12:03 | SNU/HH DC ---
DISCHARGE WITH HOME HEALTH DISCHARGE INFORMATION: Discharge Date: May 03, 2021 Final Diagnosis: Problems Medical Problems: (1) Flash pulmonary edema Status: Acute (2) Hypertensive emergency Status: Acute (3) Respiratory failure Status: Acute Condition on Discharge: Stable CODE STATUS: Code Status: Full HOME HEALTH: Face to Face: I certify this patient is under my care and that I, or a nurse practitioner or physician's head start assistant teacher working with me, had a face to face encounter that meets the physician face to face encounter requirements with this patient on []. Medical Complications: CHF Jail For: Assess Cardiopulm Status, Assess & Educate Safety, A ssess/Skilled Observatio, Diabetic Care, Medication Management RN For Eval/Treatment: Yes Physical Therapy For: Evalulation/Treatment Occupational Therapy For: Evaluation/Treatment Speech Language Pathology For: Evaluation/Treatment Home Health Aide For: Self-care JAVA SECURITY ARCHITECT For: Community Resources Pt Meets Homebound Status: Limited distance walking POST DISCHARGE ORDERS: Activity Instructions for Disc: Avoid high altitudes, Progressive ambulation Weight Bearing Status after Di: As tolerated DIET AFTER DISCHARGE: ADA CHECKS AFTER DISCHARGE: Checks after discharge: Check blood press - daily, Check blood sugar, ac/hs, Weigh Yourself Daily FOLLOW-UP: PCP to follow Home Health: SEE PCP AT [facility] TREATMENT/EQUIPMENT ORDERS: Adaptive Equipment Issued: None Discharge Respiratory Equipmen: Oxygen CERTIFICATION STATEMENT: Certification Statement: Certification Statement: Based on the above finding, I certify that this patient is confined to the home and needs intermittent fdc care, physical therapy and/or speech therapy, or continues to need occupational therapy.~ This patient is under my care, and I have initiated the establishment of the plan of care.~ This patient will be followed by myself or a community physician who will periodically review the plan of care. Home Meds Active Scripts Furosemide (LASIX) 40 Mg Tablet, 1 TAB PO DAILY for CHF for 30 Days, #30 TAB 0 Refills Prov:POLI ARSHAD MD 05/03/21 Famotidine (FAMOTIDINE) 20 Mg Tablet, 20 MG PO QHS for GERD for 30 Days, #30 TAB Prov:POLI ARSHAD MD 05/03/21 Docusate Sodium (COLACE) 100 Mg Capsule, 100 MG PO BID for PREVENT HARD STOOLS for 30 Days, #60 CAP Prov:POLI ARSHAD MD 05/03/21 Acetaminophen (ACETAMINOPHEN) 325 Mg Tablet, 650 MG PO PRN Q6HRS PRN for MILD PAIN / TEMP > 100.3'F for 30 Days, #100 TAB Prov:POLI ARSHAD MD 05/03/21 Losartan Potassium (COZAAR ) 50 Mg Tablet, 100 MG PO DAILY for BLOOD PRESSURE for 30 Days, #60 TAB Prov:POLI ARSHAD MD 05/03/21 Carvedilol (CARVEDILOL ) 12.5 Mg Tablet, 12.5 MG PO BIDWMEALS for BLOOD PRESSURE for 30 Days, #60 TAB Prov:POLI ARSHAD MD 05/03/21 Nitroglycerin (NITROSTAT) 0.4 Mg Tab.subl, 0.4 MG SL PRN Q5MIN PRN for CHEST PAIN for 30 Days, #100 TAB Prov:POLI ARSHAD MD 05/03/21 Albuterol Sulfate (Ventolin Hfa) 8 Gm Hfa.aer.ad, 1 PUFF INH PRN Q4HRS PRN for WHEEZING for 30 Days, #1 INHALER 3 Refills Prov:GEORGE ALEXIS MD 02/04/21 Reported Medications Multivitamin (MULTI VITAMIN DAILY) 1 Each Tablet, 1 TAB PO DAILY for supplement for 30 Days, #30 TAB 0 Refills 02/04/21 Insulin Glargine,Hum.rec.anlog (LANTUS SOLOSTAR) 100 Unit/1 Ml Insuln.pen, 40 UNIT SQ QHS for dm, #15 ML 3 Refills 02/04/21 Insulin Aspart (NOVOLOG) 100 Unit/1 Ml Cartridge, 15 UNIT SQ TIDAC for DM, EACH 02/04/21 Atorvastatin Calcium (ATORVASTATIN CALCIUM) 40 Mg Tablet, 80 MG PO HS for FOR CHOLESTEROL, #30 TAB 0 Refills 02/04/21 Hydrochlorothiazide (HYDROCHLOROTHIAZIDE TABLET ) 25 Mg Tablet, 12.5 MG PO BID for DIURETIC, TAB 0 Refills 02/04/21 Discontinued Reported Medications Gabapentin (GABAPENTIN) 600 Mg Tablet, 300 MG PO DAILY for NEUROGENIC PAIN, TAB 02/04/21 Losartan Potassium (LOSARTAN POTASSIUM) 50 Mg Tablet, 25 MG PO DAILY for HYPERTENSION, TAB 02/04/21 POLI ARSHAD MD May 03, 2021 12:03
[2021-05-03] MEDS: ENOXAPARIN 40 MG/0.4 ML SYRINGE. SQ SCH (12:19)
[2021-05-03] MEDS ORDERED: DOCUSATE SODIUM 100 MG CAPSULE. PO SCH (13:00)
--- NOTE | 2021-05-03 13:50 | NUR ---
Discharge Note: [facility] Discharge instructions and discharge home medications reviewed with Patient and a copy given. All questions have been answered and understanding verbalized. The following instructions and handouts were given: losartan,carvedilol, heart failure, famotidine, docusate Patient discharged to home with home health via wheelchair.
[2021-05-03] MEDS ORDERED: FAMOTIDINE 20 MG TABLET. PO SCH (21:00)
== END 2021-05-03 13:48 | disposition home health service (06) | DRG 208 ==
LOC: ER 04:45 → ED HOLD 05:45 → 1 WEST ICU 04-30 05:50 → 6 SOUTH 05-01 11:20
PROVIDERS: ADMIT Student in an Organized Health Care Education/Training Program; ATTEND Student in an Organized Health Care Education/Training Program
PROC: 5A1945Z Respiratory Ventilation, 24-96 Consecutive Hours (ICD-10-PCS; principal; 2021-04-29)
PROC: 0BH17EZ Insertion of Endotracheal Airway into Trachea, Via Natural or Artificial Opening (ICD-10-PCS; 2021-04-29)
PROC: 5A09357 Assistance with Respiratory Ventilation, Less than 24 Consecutive Hours, Continuous Positive Airway Pressure (ICD-10-PCS; 2021-04-29)
DX: J96.21 Acute and chronic respiratory failure with hypoxia (principal); N17.0 Acute kidney failure with tubular necrosis; E43 Unspecified severe protein-calorie malnutrition; I50.33 Acute on chronic diastolic (congestive) heart failure; I16.1 Hypertensive emergency; I13.0 Hypertensive heart and chronic kidney disease with heart failure and stage 1 through stage 4 chronic kidney disease, or unspecified chronic kidney disease; J96.22 Acute and chronic respiratory failure with hypercapnia; E11.22 Type 2 diabetes mellitus with diabetic chronic kidney disease; E11.65 Type 2 diabetes mellitus with hyperglycemia; E66.01 Morbid (severe) obesity due to excess calories; E78.00 Pure hypercholesterolemia, unspecified; E78.5 Hyperlipidemia, unspecified; F17.210 Nicotine dependence, cigarettes, uncomplicated; N18.9 Chronic kidney disease, unspecified; Z20.822 Contact with and (suspected) exposure to COVID-19; Z82.49 Family history of ischemic heart disease and other diseases of the circulatory system; Z83.3 Family history of diabetes mellitus
CPT/HCPCS: 31500; 36415; 36600; 51702; 71045; 74018; 80048; 80053; 80076; 80307; 81001; 82805; 82962; 83036; 83605; 83880; 84145; 84484; 85025; 86140; 87426; 93005; 93306; 94002; 94003; 94618; 94760; 96374; 96375; J0360; J1650; J1815; J1940; J2250; J2704; J3010; J3490; U0003; U0005; 92610-GN; 97116-GP; 97535-GO; 99291-25; G0378

== ENCOUNTER 2021-10-15 07:55 | Emergency (ER) | payer MEDICARE, OTHER ==
[~2021-10-15] VITALS: Ht 175.3 cm; Wt 113.6 kg
[~2021-10-15 07:55] MED LIST changes: +ACET325T21 PO; +CARV12.511 PO; +DOCU-109 PO; +FAMO20TA5 PO; +FURO-68 PO; +NITR0.4T24 SL
[2021-10-15] MEDS ORDERED: predniSONE 20 MG TABLET PO ONE (08:15)
--- NOTE | 2021-10-15 09:10 | RAD ---
XR CHEST 1V History: Reason: dyspnea, / Spl. Instructions: / History: Comparison: May 02, 2021 Findings: No consolidation or pleural effusion. Normal heart size. No pneumothorax. Impression: 1. No acute cardiopulmonary process. Electronically signed by: Tony Arzola DO (10/15/2021 9:08 AM) [id number]
[2021-10-15 09:49] LABS: BASO # 0.1 x10^3/uL (0.0-0.2); BASO % 1 % (0-3); EOS % 0 % (0-3); HEMATOCRIT 37.8 % (39.0-53.0); HEMOGLOBIN 12.7 g/dL (13.0-17.5); LYMPH # 1.2 x10^3/uL (1.0-4.8); LYMPH % 13 % (24-48); MEAN CORPUSCULAR HEMOGLOBIN 29 pg (25-35); MEAN CORPUSCULAR HGB CONC 34 g/dL (31-37); MEAN CORPUSCULAR VOLUME 86 fL (79-100); MONO # 0.7 x10^3/uL (0.0-1.1); MONO % 8 % (0-9); NEUT % 78 % (31-73); PLATELET COUNT 341 x10^3/uL (140-400); RED BLOOD COUNT 4.39 x10^6/uL (4.30-5.70); RED CELL DISTRIBUTION WIDTH 13.3 % (11.5-14.5)
[2021-10-15 10:04] LABS: CALCIUM 8.4 mg/dL (8.5-10.1); CREATININE 1.7 mg/dL (0.7-1.3); GFR 49.2; POTASSIUM 5.3 mmol/L (3.5-5.1)
--- NOTE | 2021-10-15 10:08 | EKG ---
[address] [place] [id number] Test Date: 2021-10-15 Test Time: 08:17:21 Pat Name: BIA ORTIZ Department: Room: Gender: M Neurocritical Care Physician: : [id number] Requested By: MARIA ANTONIA HOFFMANN Order Number: [id number] Reading MD: Braulio Webb MD Measurements Intervals Levan Rate: 98 P: 54 TX: 152 QRS: 51 QRSD: 92 T: 91 QT: 366 QTc: 469 Interpretive Statements SINUS RHYTHM NON-SPECIFIC ST/T CHANGES Electronically Signed On 10-15-2021 10:51:26 LOADING INSPECTOR by Braulio Webb MD
[2021-10-15] MEDS ORDERED: INSULIN REGULAR 100 UNIT/ML 3ML VIAL. IV ONE (12:00)
[2021-10-15 12:31] VITALS: BP 170/77
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
[2021-10-15] MEDS ORDERED: PRED20TA PO (13:47)
[2021-10-15] MEDS ORDERED: ALBU2.5V8 IH (13:47)
[2021-10-15] MEDS ORDERED: FURO-68 PO (13:47)
== END 2021-10-15 13:53 | disposition home or self-care (01) ==
LOC: ER 07:55
DX: R06.02 Shortness of breath (principal); I11.0 Hypertensive heart disease with heart failure; I50.9 Heart failure, unspecified; E11.9 Type 2 diabetes mellitus without complications; E78.00 Pure hypercholesterolemia, unspecified; F17.200 Nicotine dependence, unspecified, uncomplicated
CPT/HCPCS: 36415; 71045; 80048; 82962; 83880; 84484; 85025; 93005; 96374; 99285; J1815; J7512